=== PATIENT | male | born 1960 | race Caucasian/White ===

== ENCOUNTER 2021-01-26 08:12 | Emergency (ER) | payer BC ==
[2021-01-26 08:18] VITALS: BP 136/74; PULSE 80; RESP 20; TEMP 97.1
[2021-01-26] MEDS ORDERED: MORPHINE SULFATE 4 MG/ML SYRINGE IV STA (08:30)
[2021-01-26] MEDS ORDERED: ONDANSETRON 4 MG/2 ML VIAL IVP STA (08:30)
[2021-01-26] MEDS ORDERED: SODIUM CHLORIDE 0.9% 1,000 ML IV STA (08:30)
--- NOTE | 2021-01-26 09:46 | XR ---
EXAMINATION TYPE: XR KUB DATE OF EXAM: 01/26/2021 COMPARISON: NONE HISTORY: Pain TECHNIQUE: One view abdominal series FINDINGS: Bilateral infiltrate and pleural effusion. There is dilated small bowel loops with air-fluid levels. Hypertrophic and degenerative changes spine. IMPRESSION: 1. Dilated bowel loops with air-fluid levels correlate for bowel obstruction. 2. Bilateral lower lobe infiltrate and small effusion.
[2021-01-26 09:51] LABS: Basophils % (A) 0 %; Eosinophils # (A) 0.2 k/uL (0-0.7); Eosinophils % (A) 2 %; HGB 17.1 gm/dL (13.0-17.5); Hypochromasia Slight; Lymphocytes # (A) 1.6 k/uL (1.0-4.8); Lymphocytes % (A) 16 %; MCH 27.1 pg (25.0-35.0); MCHC 31.7 g/dL (31.0-37.0); MCV 85.6 fL (80.0-100.0); Mean Platelet Volume 8.7; Monocytes # (A) 0.5 k/uL (0-1.0); Monocytes % (A) 5 %; Neutrophils # (A) 7.3 k/uL (1.3-7.7); Neutrophils % (A) 75 %; Platelet Count 311 k/uL (150-450); RDW 14.9 % (11.5-15.5); WBC 9.6 k/uL (3.8-10.6)
[2021-01-26 10:05] LABS: ALT 77 U/L (4-49); AST 80 U/L (17-59); African American GFR (CKD) >90 (>60 ml/min/1.73 sqM); Albumin 4.4 g/dL (3.5-5.0); Alkaline Phosphatase 69 U/L (38-126); Amylase 63 U/L (30-110); Anion Gap 9 mmol/L; Blood Urea Nitrogen 15 mg/dL (9-20); Calcium 9.9 mg/dL (8.4-10.2); Carbon Dioxide 29 mmol/L (22-30); Chloride 96 mmol/L (98-107); Glucose 159 mg/dL (74-99); Lipase 49 U/L (23-300); Non-African American GFR(CKD) 85 (>60 ml/min/1.73 sqM); Potassium 5.4 mmol/L (3.5-5.1); Sodium 134 mmol/L (137-145); Total Bilirubin 0.6 mg/dL (0.2-1.3)
--- NOTE | 2021-01-26 10:38 | ED ---
Abdominal Pain HPI - General Chief Complaint: Abdominal Pain Stated Complaint: diverticulitis Time Seen by Provider: 01/26/21 08:23 Source: patient, RN notes reviewed Mode of arrival: wheelchair Limitations: no limitations - History of Present Illness Initial Comments: Patient is a 60-year-old male that presents to the emergency room complaining of left lower quadrant abdominal pain. He does have a history of diverticulitis. He was seen by his primary care and was started on antibiotics. Patient is unable to recall which Antibiotic is on. Patient notes that he has several pills and a Tylenol pill bottle with him. Patient was in no apparent distress or pain. He notes that at rest is about a 2 out of 10 with no relief. Patient was told to come to the emergency room if symptoms had persisted. Patient was otherwise well-appearing. He denied chest pain shortness of breath headache nausea vomiting diarrhea constipation fever fatigue chills. - Related Data Home Medications Medication Instructions Recorded Confirmed Levothyroxine Sodium [Synthroid] 125 mcg PO DAILY 01/26/21 01/26/21 Lisinopril-Hctz 20-12.5 mg 1 tab PO DAILY 01/26/21 01/26/21 [Zestoretic 20-12.5] Simvastatin [Zocor] 20 mg PO DAILY 01/26/21 01/26/21 Sulfamethox-Tmp 800-160Mg [Bactrim 1 tab PO Q12HR 01/26/21 01/26/21 DS 800-160 mg] Testosterone Cypionate 200 mg IM QMONTHLY 01/26/21 01/26/21 [Depo-Testosterone] Venlafaxine HCl ER [Effexor Xr] 150 mg PO DAILY 01/26/21 01/26/21 metFORMIN HCL 500 mg PO BID 01/26/21 01/26/21 metroNIDAZOLE [Flagyl] 500 mg PO QID 01/26/21 01/26/21 Previous Rx's Medication Instructions Recorded Amoxicillin/Potassium Clav 1 tab PO Q12HR #20 tab 01/26/21 [Augmentin 875-125 Tablet] Allergies Allergy/AdvReac Type Severity Reaction Status Date / Time No Known Allergies Allergy Verified 01/26/21 11:23 Review of Systems ROS Statement: Those systems with pertinent positive or pertinent negative responses have been documented in the HPI. ROS Other: All systems not noted in ROS Statement are negative. Past Medical History Additional Past Medical History / Comment(s): diverticulitis History of Any Multi-Drug Resistant Organisms: None Reported Past Surgical History: Hernia Repair Past Psychological History: No Psychological Hx Reported Smoking Status: Never smoker Past Alcohol Use History: Rare Past Drug Use History: None Reported General Exam Limitations: no limitations General appearance: alert, in no apparent distress, obese (Morbidly) Head exam: Present: atraumatic, normocephalic, normal inspection Eye exam: Present: normal appearance, PERRL, EOMI. Absent: scleral icterus, conjunctival injection, periorbital swelling ENT exam: Present: normal exam, mucous membranes moist Neck exam: Present: normal inspection Respiratory exam: Present: normal lung sounds bilaterally. Absent: respiratory distress, wheezes, rales, rhonchi, stridor Cardiovascular Exam: Present: regular rate, normal rhythm, normal heart sounds. Absent: systolic murmur, diastolic murmur, rubs, gallop, clicks GI/Abdominal exam: Present: soft, normal bowel sounds. Absent: distended, tenderness, guarding, rebound, rigid Extremities exam: Present: normal inspection, full ROM, normal capillary refill. Absent: tenderness, pedal edema, joint swelling, calf tenderness Neurological exam: Present: alert, oriented X3 Psychiatric exam: Present: normal affect, normal mood Skin exam: Present: warm, dry, intact, normal color. Absent: rash Course Vital Signs 01/26/21 08:13 Temperature 97.1 F L Pulse Rate 80 Respiratory 20 Rate Blood Pressure 136/74 O2 Sat by Pulse 93 L Oximetry Medical Decision Making - Medical Decision Making 6-year-old male complaining of left lower quadrant pain, history of div erticulitis. Labs, KUB, 1 L normal saline, 4 mg of morphine, 4 mg of Zofran ordered. labs unremarkable. X-ray shows possible bowel obstruction, computed tomography scan of the abdomen and pelvis ordered. CT scan shows colitis with several diverticula possible focal diverticulitis. Patient is on antibiotics for diverticula his. Patient recommended get a colonoscopy once symptoms resolve. Patient antibody changed due to his current 1 not being treatment of choice. Case discussed with Dr. Flores, patient can discharge home. Patient is agreeable with discharge home with follow-up primary care. - Lab Data Result diagrams: 01/26/21 08:53 01/26/21 08:53 Lab Results 01/26/21 01/26/21 01/26/21 Range/Units 08:53 08:53 08:53 WBC 9.6 (3.8-10.6) k/uL RBC 6.30 H (4.30-5.90) m/uL Hgb 17.1 (13.0-17.5) gm/dL Hct 54.0 H (39.0-53.0) % MCV 85.6 (80.0-100.0) fL MCH 27.1 (25.0-35.0) pg MCHC 31.7 (31.0-37.0) g/dL RDW 14.9 (11.5-15.5) % Plt Count 311 (150-450) k/uL MPV 8.7 Neutrophils % 75 % Lymphocytes % 16 % Monocytes % 5 % Eosinophils % 2 % Basophils % 0 % Neutrophils # 7.3 (1.3-7.7) k/uL Lymphocytes # 1.6 (1.0-4.8) k/uL Monocytes # 0.5 (0-1.0) k/uL Eosinophils # 0.2 (0-0.7) k/uL Basophils # 0.0 (0-0.2) k/uL Hypochromasia Slight Sodium 134 L (137-145) mmol/L Potassium 5.4 H (3.5-5.1) mmol/L Chloride 96 L (98-107) mmol/L Carbon Dioxide 29 (22-30) mmol/L Anion Gap 9 mmol/L BUN 15 (9-20) mg/dL Creatinine 0.97 (0.66-1.25) mg/dL Est GFR (CKD-EPI)AfAm >90 (>60 ml/min/1.73 sqM) Est GFR (CKD-EPI)NonAf 85 (>60 ml/min/1.73 sqM) Glucose 159 H (74-99) mg/dL Plasma Lactic Acid Magan 1.5 (0.7-2.0) mmol/L Calcium 9.9 (8.4-10.2) mg/dL Total Bilirubin 0.6 (0.2-1.3) mg/dL AST 80 H (17-59) U/L ALT 77 H (4-49) U/L Alkaline Phosphatase 69 (38-126) U/L Total Protein 8.0 (6.3-8.2) g/dL Albumin 4.4 (3.5-5.0) g/dL Amylase 63 (30-110) U/L Lipase 49 (23-300) U/L - Radiology Data Radiology results: report reviewed, image reviewed Computed tomography scan of the abdomen and pelvis: Findings consistent with mild diffuse colitis and/or underlying diarrheal or focal moderate to severe colitis in the left upper to mid abdomen just passed the splenic flexure in the proximal left colon. There are some scattered diverticula throughout the left and sigmoid colon findings may be product of a focal diverticulitis. I do advise colonoscopy follow-up after treatment if it is not been performed last 3 years to rule out neoplasm as there is a central moderate to severe wall thickening noted this level. Disposition Clinical Impression: Abdominal pain, Diverticulitis, Colitis Disposition: HOME SELF-CARE Condition: Stable Instructions (If sedation given, give patient instructions): Abdominal Pain (E D) Additional Instructions: Please return to the Emergency Department if symptoms worsen or any other concerns. Follow-up with primary care 1-2 days. Take antibiotics as prescribed until complete. Prescriptions: Amoxicillin/Potassium Clav [Augmentin 875-125 Tablet] 1 tab PO Q12HR #20 tab Is patient prescribed a controlled substance at d/c from ED?: No Referrals: Leopoldo Price MD [Primary Care Provider] - 1-2 days Time of Disposition: 11:52
--- NOTE | 2021-01-26 11:27 | CT ---
EXAMINATION TYPE: CT abdomen pelvis w con DATE OF EXAM: 01/26/2021 COMPARISON: Abdominal x-ray earlier today HISTORY: LLQ pain x 1 week, diverticulitis CT DLP: 5277 mGycm, Automated Exposure Control for Dose Reduction was Utilized. CONTRAST: CT scan of the abdomen and pelvis is performed without oral but with IV Contrast, patient injected wi th 100 ml mL of Isovue 300. FINDINGS: LUNG BASES: Mild cardiomegaly redemonstrated. Coronary artery calcification is noted. LIVER/GB: Liver is diffusely low dense consistent with diffuse fatty infiltration. PANCREAS: No significant abnormality is seen. SPLEEN: No significant abnormality is seen. ADRENALS: No significant abnormality is seen. KIDNEYS: Symmetric cortical medullary uptake and excretion without hydronephrosis seen bilaterally. T here is occasional tiny simple appearing thin-walled cysts scattered throughout both kidneys. BOWEL: Suboptimal evaluation of bowel without enteric contrast. Small sliding-type hiatal hernia. Pro minent small bowel loops with air-fluid levels with nondilated fluid-filled small bowel loops in the lower abdomen and pelvis. Fluid is noted at level of the hepatic flexure in the colon. This extends t o involve portions of the transverse colon. There is mild/moderate wall thickening in the transverse colon. There are diverticula throughout the left and sigmoid colon. Some abnormal fluid extends into this portion. In the proximal left: There is moderate to severe wall thickening with moderate to oma re surrounding fat stranding just below the splenic flexure axial image 40 and coronal image 45 for r eference. Findings consistent with a focal colitis possibly related to underlying diverticular diseas e. No free air identified. No well-formed fluid collection or drainable abscess seen. PROSTATE/SEMINAL VESICLES: Prostate gland within normal limits in size with adjacent pelvic phlebolit hs. Prominent LYMPH NODES: No greater than 1cm abdominal or pelvic lymph nodes are appreciated. OSSEOUS STRUCTURES: Multilevel spondylolisthesis and moderate to severe disc space narrowing along wi th moderate spurring L2-L3 through the L5-S1 levels in the mid to lower lumbar spine. Facet arthropat hy lower lumbar levels. Moderate axial joint space loss in both hips. OTHER: No significant additional abnormality is seen. IMPRESSION: Findings consistent with mild diffuse colitis and/or underlying diarrhea with more focal moderate to severe colitis in the left upper to mid abdomen just past the splenic flexure in the prox imal left colon. There are some scattered diverticula throughout the left and sigmoid colon and findi ngs may be product of a focal diverticulitis. I do advise colonoscopy follow-up after treatment if it has not been performed in the last 3 years to rule out neoplasm as there is eccentric moderate to se kenneth wall thickening noted at this level.
== END 2021-01-26 12:17 | disposition home or self-care (01) ==
LOC: EC 08:12
DX: K57.30 Diverticulosis of large intestine without perforation or abscess without bleeding (principal); K52.9 Noninfective gastroenteritis and colitis, unspecified; Z79.84 Long term (current) use of oral hypoglycemic drugs
CPT/HCPCS: 99284; 96374; 96375; 80053; 82150; 83605; 83690; 85025; 74018; 74177; J2270; J2405; Q9967

== ENCOUNTER 2021-03-02 23:18 | Inpatient (IN) | payer BC ==
[2021-03-03] MEDS ORDERED: MORPHINE SULFATE 4 MG/ML SYRINGE IVP STA (00:04)
[2021-03-03] MEDS: ONDANSETRON 4 MG/2 ML VIAL IVP STA (00:25)
[2021-03-03 00:29] LABS: Basophils % (A) 0 %; Eosinophils # (A) 0.3 k/uL (0-0.7); Eosinophils % (A) 2 %; HCT 51.5 % (39.0-53.0); Hypochromasia Moderate; Lymphocytes # (A) 1.5 k/uL (1.0-4.8); Lymphocytes % (A) 12 %; MCH 26.9 pg (25.0-35.0); MCHC 31.1 g/dL (31.0-37.0); MCV 86.5 fL (80.0-100.0); Mean Platelet Volume 8.5; Monocytes # (A) 0.6 k/uL (0-1.0); Monocytes % (A) 5 %; Neutrophils # (A) 9.9 k/uL (1.3-7.7); Neutrophils % (A) 80 %; Platelet Count 338 k/uL (150-450); RBC 5.95 m/uL (4.30-5.90); RDW 14.7 % (11.5-15.5); WBC 12.5 k/uL (3.8-10.6)
--- NOTE | 2021-03-03 00:30 | ED ---
Abdominal Pain HPI - General Chief Complaint: Abdominal Pain Stated Complaint: Abdominal pain, nausea Time Seen by Provider: 03/02/21 23:30 Source: patient Mode of arrival: ambulatory Limitations: no limitations - History of Present Illness Initial Comments: Patricio is a 60yo morbidly obese male with PMH of this approximately 6 weeks ago patient presents the ER today with recurrent severe abdominal pain nausea and constipation. Patient reports the pain began 4 days ago he's not had a bowel movement and those 4 days which is quite atypical for him. He's had some nausea but no vomiting. Decreased oral intake due to feeling full. He reports that h is abdomen is distended and firm. - Related Data Home Medications Medication Instructions Recorded Confirmed Levothyroxine Sodium [Synthroid] 125 mcg PO DAILY 01/26/21 01/26/21 Lisinopril-Hctz 20-12.5 mg 1 tab PO DAILY 01/26/21 01/26/21 [Zestoretic 20-12.5] Simvastatin [Zocor] 20 mg PO DAILY 01/26/21 01/26/21 Sulfamethox-Tmp 800-160Mg [Bactrim 1 tab PO Q12HR 01/26/21 01/26/21 DS 800-160 mg] Testosterone Cypionate 200 mg IM QMONTHLY 01/26/21 01/26/21 [Depo-Testosterone] Venlafaxine HCl ER [Effexor Xr] 150 mg PO DAILY 01/26/21 01/26/21 metFORMIN HCL 500 mg PO BID 01/26/21 01/26/21 metroNIDAZOLE [Flagyl] 500 mg PO QID 01/26/21 01/26/21 Previous Rx's Medication Instructions Recorded Amoxicillin/Potassium Clav 1 tab PO Q12HR #20 tab 01/26/21 [Augmentin 875-125 Tablet] Allergies Allergy/AdvReac Type Severity Reaction Status Date / Time No Known Allergies Allergy Verified 03/02/21 23:27 Review of Systems ROS Statement: Those systems with pertinent positive or pertinent negative responses have been documented in the HPI. ROS Other: All systems not noted in ROS Statement are negative. Past Medical History Additional Past Medical History / Comment(s): diverticulitis. COVID 03/10 History of Any Multi-Drug Resistant Organisms: None Reported Past Surgical History: Hernia Repair Past Psychological History: No Psychological Hx Reported Smoking Status: Never smoker Past Alcohol Use History: None Reported Past Drug Use History: None Reported General Exam - General Exam Comments Initial Comments: Physical Exam GENERAL: Morbidly obese gentleman, appears uncomfortable Patient is well-developed and well-nourished. Patient is nontoxic and well- hydrated and is in no distress. HENT: Normocephalic, Atraumatic. EYES: PERRL, EOMI PULMONARY: Decreased pulmonary excursion due to abdominal distention CARDIOVASCULAR: There is a regular rate and rhythm without any murmurs gallops or rubs. ABDOMEN: Distended, tender SKIN: Skin is clear with no lesions or rashes and otherwise unremarkable. : Deferred NEUROLOGIC: Patient is alert and oriented x3. Moving all extremities spontaneously MUSCULOSKELETAL: Normal extremities with adequate strength and full range of motion. No lower extremity swelling or edema. No calf tenderness. PSYCHIATRIC: Normal psychiatric evaluation. Limitations: no limitations Course Vital Signs 03/02/21 23:23 Temperature 98.1 F Pulse Rate 97 Respiratory 18 Rate Blood Pressure 120/74 O2 Sat by Pulse 95 Oximetry Medical Decision Making - Medical Decision Making In and evaluated history was obtained from patient, history and physical exam concerning for possible obstruction, x-ray was obtained which does reveal possible obstruction, NG tube was ordered. Patient was taken to computed tomography scan prior to NG tube in place. Computed tomography scan confirms a bowel obstruction with concern for annular tumor as the cause. These results were discussed the patient is agreeable to plan for admission Was discussed with Dr. Felipe who accepts admission. - Lab Data Result diagrams: 03/03/21 00:19 03/03/21 00:19 Lab Results 03/03/21 03/03/21 Range/Units 00:19 00:19 WBC 12.5 H (3.8-10.6) k/uL RBC 5.95 H (4.30-5.90) m/uL Hgb 16.0 (13.0-17.5) gm/dL Hct 51.5 (39.0-53.0) % MCV 86.5 (80.0-100.0) fL MCH 26.9 (25.0-35.0) pg MCHC 31.1 (31.0-37.0) g/dL RDW 14.7 (11.5-15.5) % Plt Count 338 (150-450) k/uL MPV 8.5 Neutrophils % 80 % Lymphocytes % 12 % Monocytes % 5 % Eosinophils % 2 % Basophils % 0 % Neutrophils # 9.9 H (1.3-7.7) k/uL Lymphocytes # 1.5 (1.0-4.8) k/uL Monocytes # 0.6 (0-1.0) k/uL Eosinophils # 0.3 (0-0.7) k/uL Basophils # 0.0 (0-0.2) k/uL Hypochromasia Moderate Sodium 135 L (137-145) mmol/L Potassium 4.7 (3.5-5.1) mmol/L Chloride 94 L (98-107) mmol/L Carbon Dioxide 29 (22-30) mmol/L Anion Gap 12 mmol/L BUN 16 (9-20) mg/dL Creatinine 0.72 (0.66-1.25) mg/dL Est GFR (CKD-EPI)AfAm >90 (>60 ml/min/1.73 sqM) Est GFR (CKD-EPI)NonAf >90 (>60 ml/min/1.73 sqM) Glucose 168 H (74-99) mg/dL Calcium 9.6 (8.4-10.2) mg/dL Total Bilirubin 0.6 (0.2-1.3) mg/dL AST 28 (17-59) U/L ALT 25 (4-49) U/L Alkaline Phosphatase 60 (38-126) U/L Total Protein 7.7 (6.3-8.2) g/dL Albumin 4.2 (3.5-5.0) g/dL Amylase 49 (30-110) U/L Lipase 26 (23-300) U/L Disposition Clinical Impression: Bowel obstruction Disposition: ADMITTED IP TO THIS [facility] Condition: Serious Is patient prescribed a controlled substance at d/c from ED?: No Referrals: Leopoldo Price MD [Primary Care Provider] - 1-2 days
[2021-03-03 00:37] LABS: ALT 25 U/L (4-49); AST 28 U/L (17-59); African American GFR (CKD) >90 (>60 ml/min/1.73 sqM); Albumin 4.2 g/dL (3.5-5.0); Alkaline Phosphatase 60 U/L (38-126); Amylase 49 U/L (30-110); Anion Gap 12 mmol/L; Blood Urea Nitrogen 16 mg/dL (9-20); Calcium 9.6 mg/dL (8.4-10.2); Carbon Dioxide 29 mmol/L (22-30); Chloride 94 mmol/L (98-107); Glucose 168 mg/dL (74-99); Lipase 26 U/L (23-300); Non-African American GFR(CKD) >90 (>60 ml/min/1.73 sqM); Potassium 4.7 mmol/L (3.5-5.1); Sodium 135 mmol/L (137-145); Total Bilirubin 0.6 mg/dL (0.2-1.3); Total Protein 7.7 g/dL (6.3-8.2)
--- NOTE | 2021-03-03 00:47 | XR ---
EXAMINATION TYPE: XR KUB portable DATE OF EXAM: 03/03/2021 COMPARISON: NONE HISTORY: Abdominal pain TECHNIQUE: 4 views FINDINGS: There are some dilated gas and fluid-filled large bowel loops in the abdomen. There is no e vidence of free air. There is right pleural effusion. There is probably left pleural effusion. IMPRESSION: Dilated large bowel fluid levels that could relate to bowel obstruction. There are also s ome small bowel fluid levels that could be secondarily dilated due to distal obstruction. No free air . Pleural effusions.
[2021-03-03] MEDS ORDERED: LIDOCAINE URO-JET JELLY 2% 5 ML KIT URETHRAL ONE (00:48)
--- NOTE | 2021-03-03 01:07 | CT ---
EXAMINATION TYPE: CT abdomen pelvis w con DATE OF EXAM: 03/03/2021 COMPARISON: 01/26/2021 HISTORY: abd. pain CT DLP: 4089.90 mGycm Automated exposure control for dose reduction was used. CONTRAST: Performed with IV Contrast, patient injected with 100 mL of Isovue 300. Images obtained from the diaphragm to the floor the pelvis with IV contrast. There is mild subsegmental atelectasis at the lung bases. Heart is top normal in size. There is no pe ricardial effusion. There is no pleural effusion. Liver is enlarged and measures 22 cm. Spleen is intact. Stomach is intact. The bile ducts are not dil ated. Gallbladder is mildly dilated and measures 5 cm. No gallbladder wall thickening seen. There is no evidence of pancreatic mass. There is no adrenal mass. Kidneys show satisfactory contrast opacification. There is no hydronephrosi s. Ureters are not dilated. There is no retroperitoneal adenopathy. There are multiple dilated fluid-filled and air-filled loops of large bowel in the mid abdomen. There is extensive inflammatory changes involving the mid descending colon with wall thickening and surrou nding extensive fat stranding. There is no evidence of free air. Segment of large bowel involvement i s 7 cm in length. The wall thickness is measuring up to 2.5 cm. This is suspicious for tumor. There a re multiple sigmoid diverticula. Lumbar vertebra have normal alignment. There is multilevel vacuum disc with spur formation. There is no compression fracture. Posterior elements are intact. The bony pelvis is intact. The hip joints are intact. Sacroiliac joints appear normal. There is no ascites or free air. The small bowel does not appear sig nificantly dilated. IMPRESSION: There is significant wall thickening of the distal descending colon with luminal narrowing and some s houldering at the superior aspect. This is suspicious for annular tumor. There is evidence for mechan ical large bowel obstruction with multiple fluid levels in dilated loops. Large bowel dilation increa sed compared to old exam. Sigmoid diverticulosis without sign of diverticulitis. Hepatomegaly. Atherosclerotic vascular disease. Dilated gallbladder suggestive of some degree of gall bladder dysfunction. No dilated ducts.
[2021-03-03] MEDS ORDERED: LORazepam 2 MG/ML INJ IV STA (01:28)
[2021-03-03] MEDS ORDERED: ONDANSETRON 4 MG/2 ML VIAL IVP PRN (01:39)
[2021-03-03] MEDS ORDERED: NALOXONE 0.4 MG/ML 1 ML VIAL IV PRN (01:39)
--- NOTE | 2021-03-03 03:02 | XR ---
EXAMINATION TYPE: XR chest 1V DATE OF EXAM: 03/03/2021 COMPARISON: NONE HISTORY: Tube placement TECHNIQUE: 2 views FINDINGS: There is slight blunting right costophrenic angle. There is minimal pulmonary congestion. H eart size is fairly normal. There is subsegmental atelectasis left lung base. IMPRESSION: Mild pulmonary interstitial edema and small pleural effusions. There is nasogastric tube and the tip is not well seen. Tube is at least in the lower esophagus.
[2021-03-03] MEDS: HYDROmorphone 1 MG/ML 1 ML SYRINGE IVP PRN ×2 (07:29→13:36)
[2021-03-03] MEDS: LORazepam 2 MG/ML INJ IV PRN ×2 (10:27→20:24)
--- NOTE | 2021-03-03 11:04 | P.GSHP ---
History of Present Illness H&P Date: 03/03/21 CHIEF COMPLAINT: Abdominal pain HISTORY OF PRESENT ILLNESS: This is a 60-year-old male with a history of morbid obesity, diverticulitis and umbilical hernia repair. Patient presents to the hospital with complaints of abdominal pain across the middle of his abdomen and into the left side. Patient reports that he has been dealing with abdominal pain for about 6 weeks. Over the last 3 days he has had increasing pain with nausea and not having any bowel movements for about 2 days. He reports feeling more bloated and has had decreased and flatulence. He reports his last colonoscopy was 2 years ago that did reveal diverticulosis. Patient denies any fever, chills or sweats. Computed tomography scan evidence had shown evidence of a large bowel obstruction. PAST MEDICAL HISTORY: Enlarged aorta patient reports having a stress test 6 months ago. Diverticulitis, COVID-19, obstructive sleep apnea and uses CPAP, hypertension, hypothyroidism, anxiety PAST SURGICAL HISTORY: Umbilical hernia repair MEDICATIONS: See list. ALLERGIES: See list. SOCIAL HISTORY: No illicit drug use. REVIEW OF SYSTEMS: CONSTITUTIONAL: Denies fever or chills. HEENT: Denies blurred vision, vision changes, or eye pain. Denies hemoptysis CARDIOVASCULAR: Denies chest pain or pressure. RESPIRATORY: No shortness of breath. GASTROINTESTINAL: See HPI for pertinent findings HEMATOLOGIC: Denies bleeding disorders. GENITOURINARY: Denies any blood in urine or increased urinary frequency. SKIN: Denies pruitis. Denies rash. PHYSICAL EXAM: VITAL SIGNS: Reviewed GENERAL: Well-developed in no acute distress. HEENT: No sclera icterus. Extraocular movements grossly intact. Moist buccal mucosa. Head is atraumatic, normocephalic. No nasal drainage. ABDOMEN: Soft. Obese. Distended. Tenderness to palpation of the mid abdomen and left side of abdomen NEUROLOGIC: Alert and oriented. Cranial nerves II through XII grossly intact. LABORATORY DATA: WBC is 12.5 Hgb 16 338 Sodium 135 potassium 4.7 BUN 16 creatinine 0.72 LFTs normal Lipase 26 COVID-19 not detected IMAGING: Computed tomography scan abdomen and pelvis demonstrates significant wall thickening of the distal descending colon with a luminal narrowing and some shouldering at the superior aspect. There is suspicious for annular tumor. There is evidence for mechanical large bowel obstruction with multiple fluid levels and dilated loops. Large bowel dilation increased compared to old exam. Sigmoid diverticulosis without sign of diverticulitis. Hepatomegaly. As sclerotic vascular disease. Dilated gallbladder suggestive of some degree of gallbladder dysfunction. No dilated ducts. ASSESSMENT: 1. Mechanical large bowel obstruction with CAT scan evidence of significant wall thickening of the distal descending colon with luminal narrowing and some shouldering at the superior aspect. Suspicious for annular tumor 2. Evidence of a dilated gallbladder on CAT scan PLAN: -Patient scheduled for sigmoid colectomy with end colostomy for today with Dr. Caldwell -Keep patient nothing by mouth -Continue IV fluids -Continue pain medication as needed -Continue antiemetics as needed -Consult medicine service for medical management Physician [employer] note has been reviewed by physician. Signing provider agrees with the documented findings, assessment, and plan of care. Past Medical History Past Medical History: Hyperlipidemia, Hypertension, Pneumonia, Thyroid Disorder, Vascular Disorder Additional Past Medical History / Comment(s): Diverticulitis, aortic aneurysm 4.5 cm, covid positive 02/17/21 asymptomatic per pt, NIDDM type II, chronic low back pain/R shoulder pain and bilateral knee pain, hypothyroid History of Any Multi-Drug Resistant Organisms: None Reported Past Surgical History: Hernia Repair, Tonsillectomy Additional Past Surgical History / Comment(s): Colonoscopy 2019 at [facility], umbilical hernia, R hand cut injury with surgical repair. Additional Past Anesthesia/Blood Transfusion Reaction / Comment(s): PT HAS HX OF BEING A DIFFICULT INTUBATION. Smoking Status: Never smoker - Past Family History Mother Family Medical History: Cancer Additional Family Medical History / Comment(s): Mother of cervical cancer with mets at the age of 66 yrs. Father Family Medical History: Myocardial Infarction (OK) Additional Family Medical History / Comment(s): Father of a OK at the age of 69 yrs. Medications and Allergies Home Medications Medication Instructions Recorded Confirmed Type Levothyroxine Sodium [Synthroid] 125 mcg PO DAILY 01/26/21 03/03/21 History Lisinopril-Hctz 20-12.5 mg 1 tab PO DAILY 01/26/21 03/03/21 History [Zestoretic 20-12.5] Simvastatin [Zocor] 20 mg PO DAILY 01/26/21 03/03/21 History Venlafaxine HCl ER [Effexor Xr] 150 mg PO DAILY 01/26/21 03/03/21 History metFORMIN HCL 500 mg PO BID 01/26/21 03/03/21 History Ascorbic Acid [Vitamin C] 1,000 mg PO DAILY 03/03/21 03/03/21 History Cholecalciferol [Vitamin D3 (25 50 mcg PO DAILY 03/03/21 03/03/21 History Mcg = 1000 Iu)] Zinc 50 mg PO DAILY 03/03/21 03/03/21 History Allergies Allergy/AdvReac Type Severity Reaction Status Date / Time No Known Allergies Allergy Verified 03/03/21 08:14 Surgical - Exam Vital Signs Temp Pulse Resp BP Pulse Ox 98.1 F 97 18 120/74 95 03/02/21 23:23 03/02/21 23:23 03/02/21 23:23 03/02/21 23:23 03/02/21 23:23 Results - Labs 03/03/21 00:19 03/03/21 00:19 Abnormal Lab Results - Last 24 Hours (Table) 03/03/21 03/03/21 Range/Units 00:19 00:19 WBC 12.5 H (3.8-10.6) k/uL RBC 5.95 H (4.30-5.90) m/uL Neutrophils # 9.9 H (1.3-7.7) k/uL Sodium 135 L (137-145) mmol/L Chloride 94 L (98-107) mmol/L Glucose 168 H (74-99) mg/dL Diabetes panel 03/03/21 Range/Units 00:19 Sodium 135 L (137-145) mmol/L Potassium 4.7 (3.5-5.1) mmol/L Chloride 94 L (98-107) mmol/L Carbon Dioxide 29 (22-30) mmol/L BUN 16 (9-20) mg/dL Creatinine 0.72 (0.66-1.25) mg/dL Glucose 168 H (74-99) mg/dL Calcium 9.6 (8.4-10.2) mg/dL AST 28 (17-59) U/L ALT 25 (4-49) U/L Alkaline Phosphatase 60 (38-126) U/L Total Protein 7.7 (6.3-8.2) g/dL Albumin 4.2 (3.5-5.0) g/dL Calcium panel 03/03/21 Range/Units 00:19 Calcium 9.6 (8.4-10.2) mg/dL Albumin 4.2 (3.5-5.0) g/dL Pituitary panel 03/03/21 Range/Units 00:19 Sodium 135 L (137-145) mmol/L Potassium 4.7 (3.5-5.1) mmol/L Chloride 94 L (98-107) mmol/L Carbon Dioxide 29 (22-30) mmol/L BUN 16 (9-20) mg/dL Creatinine 0.72 (0.66-1.25) mg/dL Glucose 168 H (74-99) mg/dL Calcium 9.6 (8.4-10.2) mg/dL Adrenal panel 03/03/21 Range/Units 00:19 Sodium 135 L (137-145) mmol/L Potassium 4.7 (3.5-5.1) mmol/L Chloride 94 L (98-107) mmol/L Carbon Dioxide 29 (22-30) mmol/L BUN 16 (9-20) mg/dL Creatinine 0.72 (0.66-1.25) mg/dL Glucose 168 H (74-99) mg/dL Calcium 9.6 (8.4-10.2) mg/dL Total Bilirubin 0.6 (0.2-1.3) mg/dL AST 28 (17-59) U/L ALT 25 (4-49) U/L Alkaline Phosphatase 60 (38-126) U/L Total Protein 7.7 (6.3-8.2) g/dL Albumin 4.2 (3.5-5.0) g/dL
[2021-03-03] MEDS: SODIUM CHLORIDE 0.9% 1,000 ML IV SCH ×2 (11:35→17:47)
[2021-03-03] MEDS ORDERED: LIDOCAINE 1% (10MG/ML) FOR IV START INTRADERMA PRN (12:22)
[2021-03-03] MEDS: LACTATED RINGERS 1,000 ML IV SCH (12:35)
[2021-03-03] MEDS ORDERED: hydrALAZINE HCL 20 MG/ML 1 ML VIAL IVP PRN (14:50)
[2021-03-03] MEDS: HEPARIN SODIUM,PORCINE/PF 5,000 UNIT/0.5 ML SYRINGE SQ SCH ×2 (15:06→20:25)
--- NOTE | 2021-03-03 16:07 | CONS ---
CONSULTATION REASON FOR CONSULTATION: Advice regarding hypertension and other medical issues, requested by Surgery. HISTORY OF PRESENT ILLNESS: This 60-year-old gentleman with a past medical history of hypertension, hyperlipidemia, history of pneumonia, hypothyroidism, history of diabetes mellitus, being followed by Dr. Leopoldo Price in the outpatient setting, also had a thoracic aortic aneurysm 4.5 cm, being followed by Cardiothoracic Surgery outside, which is stable according to him. The patient is complaining of on and off abdominal pain which is diffuse in character, and the patient presented with features of bowel obstruction with abdominal distention. CT scan of the abdomen and pelvis showed significant wall thickening of the distal descending colon with luminal narrowing of the superior aspect. Annular tumor was suspected. Large bowel dilatation was noted. Because of the mechanical obstruction, Surgery was planning sigmoid colectomy and colostomy also. There is no history of any fever, rigors or chills. No history of headache, loss of consciousness, seizures. Patient is extremely anxious at this time. PAST MEDICAL HISTORY: History of hypertension, hyperlipidemia, history of pneumonia, history of vascular disease, history of diverticulitis. MEDICATIONS: Medications prior to admission include metformin, zinc, Effexor XR, Zocor, Zestoretic, Synthroid, cholecalciferol, vitamin C. doses are reviewed. ALLERGIES: NONE. FAMILY HISTORY: History of cancer with metastases. SOCIAL HISTORY: Occasional alcohol intake. REVIEW OF SYSTEMS: ENT: No diminished hearing. No diminished vision. CARDIOVASCULAR SYSTEM: No angina, palpitations. RESPIRATORY SYSTEM: No cough, hemoptysis. GI: No nausea, vomiting, diarrhea. : No dysuria. NERVOUS SYSTEM: No numbness, weakness. ALLERGY/IMMUNOLOGY: No asthma or hay fever. MUSCULOSKELETAL: As mentioned earlier. HEMATOLOGY/ONCOLOGY: No history of anemia. ENDOCRINE: No history of diabetes or hypothyroidism. CONSTITUTIONAL: As mentioned earlier. DERMATOLOGY: Negative. RHEUMATOLOGY: Negative. PSYCHIATRY: As mentioned earlier. PHYSICAL EXAMINATION: Patient is alert, oriented x3. Pulse 82, blood pressure 124/88, respiration 18, temperature normal, pulse ox 94% on 2 L. HEENT: Conjunctivae normal. NECK: No jugular venous distention. CARDIOVASCULAR: S1, S2 muffled. RESPIRATION: Breath sounds diminished at the bases. A few scattered rhonchi. ABDOMEN: Soft, obese. Tense in the upper part. Tender. No guarding or rigidity. Bowel sounds diminished. No ascites. No mass palpable. LEGS: No edema. No swelling. NERVOUS SYSTEM: Higher functions as mentioned earlier. Moves all 4 limbs. No focal motor or sensory deficit. LYMPHATICS: No lymph node palpable in neck, axillae or groin. SKIN: No ulcer, rash, bleeding. JOINTS: No active deforming arthropathy. LABS: WBC 12.3, hemoglobin 16, sodium 135, potassium 4.7. The abdominal x-ray and CT scan were personally reviewed by me. Abdominal x-ray showed large dilated large bowel and small bowel dilatations. CT of the abdomen showed multiple findings, as listed above, and sigmoid diverticulosis without any signs of diverticulitis also noted. Hepatomegaly was also noted. Some degree of gallbladder dysfunction also noted. Other labs are noted. IMPRESSION: 1. Acute mechanical large bowel obstruction. Rule out annular tumor. 2. Increased white count. 3. Hyponatremia. 4. Increased random blood sugar. 5. Hypertension. 6. Hyperlipidemia. 7. History of pneumonia. 8. History of hypothyroidism. 9. History of diverticulosis. 10.History of aortic aneurysm 4.5 cm, thoracic. 11.History of COVID last month, asymptomatic. 12.History of chronic low back pain and shoulder pain. 13.Hypothyroidism. 14.History of umbilical hernia. 15.History of anxiety, depression. 16.Obesity with body mass index of 60. 17.FULL CODE. RECOMMENDATIONS AND DISCUSSION: In this 60-year-old gentleman who presented with multiple complex medical issues, we will monitor the patient closely, continue the current medications, continue symptomatic treatment. I recommend a course of antibiotics, rather prophylactic, and obtain the cultures. Resume the home medications. Monitor blood pressure closely. Ativan for anxiety. Pain management. DVT prophylaxis. We will follow the patient closely with you. I would also recommend a baseline EKG. Chest x-ray which was reviewed personally by me showed some lower shadows as well. MMODL / IJN: [id number] /
--- NOTE | 2021-03-03 18:01 | US ---
EXAMINATION TYPE: US venous doppler duplex LE DATE OF EXAM: 03/03/2021 5:44 PM COMPARISON: NONE CLINICAL HISTORY: dvt. Elevated D Dimer. No hx of DVT. Patient takes aspirin. SIDE PERFORMED: Bilateral TECHNIQUE: The lower extremity deep venous system is examined utilizing real time linear array sonog ambar with graded compression, doppler sonography and color-flow sonography. VESSELS IMAGED: Common Femoral Vein Deep Femoral Vein Greater Saphenous Vein * Femoral Vein Popliteal Vein Small Saphenous Vein * Proximal Calf Veins (* superficial vessels) Right Leg: Limited due to edema. No evidence of DVT in veins imaged at this time. Left Leg: Limited due to edema. No evidence of DVT in veins imaged at this time. IMPRESSION: No evidence for deep vein thrombosis in either lower extremity.
[2021-03-03] MEDS: PIPERACILLIN-TAZOBACTAM 3.375 GM in SODIUM CHLORIDE 0.9% 100 ML IVPB SCH (18:19)
[2021-03-03] MEDS: PANTOPRAZOLE 40 MG/10 ML VIAL IVP SCH (20:24)
[2021-03-03] MEDS: MORPHINE SULFATE 4 MG/ML SYRINGE IV PRN (20:25)
--- NOTE | 2021-03-04 00:51 | CT ---
EXAMINATION TYPE: CT chest angio for PE DATE OF EXAM: 03/04/2021 COMPARISON: HISTORY: elevated d-dimer CT DLP: 1120.1 mGycm Automated exposure control for dose reduction was used. CONTRAST: Performed with IV Contrast, patient injected with 65 mL of Isovue 370. The lungs are clear of infiltrate. There is patchy linear density in the lower lung laguna consistent with atelectasis. There is no pleural effusion. Heart size is normal. There is no pericardial effusi on. There is some coronary artery calcification. There is 5 cm aneurysm of the ascending aorta. There is no dissection. There is suboptimal contrast density in the pulmonary arteries. I see no filling defect. Upper abdomi nal soft tissues are intact. The thoracic spine is intact. There is no compression fracture. IMPRESSION: Patchy atelectasis at the lung bases and mid lung laguna. No suspicious pulmonary mass. Aneurysm of the ascending aorta. Limited exam for evaluation of the pulmonary arteries. No evidence of any central pulmonary embolism.
[2021-03-04] MEDS: PIPERACILLIN-TAZOBACTAM 3.375 GM in SODIUM CHLORIDE 0.9% 100 ML IVPB SCH ×3 (01:24→15:30)
[2021-03-04] MEDS: SODIUM CHLORIDE 0.9% 1,000 ML IV SCH ×2 (04:19→11:02)
[2021-03-04] MEDS: MORPHINE SULFATE 4 MG/ML SYRINGE IV PRN ×2 (04:32→19:17)
[2021-03-04 04:33] LABS: Appearance,Urine Clear (Clear); Bacteria,Urine Rare /hpf; Bilirubin,Urine Negative (Negative); Blood,Urine Negative (Negative); Color,Urine Yellow; Glucose,Urine (UA) Negative (Negative); Ketones,Urine Negative (Negative); Leukocyte Esterase,Urine Trace (Negative); Nitrite,Urine Negative (Negative); PH, Urine 5.5 (5.0-8.0); Protein,Urine Trace (Negative); RBC,Urine 1 /hpf (0-5); Squamous Epithelial Cell,Urine 1 /hpf (0-4); Urobilinogen,Urine <2.0 mg/dL (<2.0); WBC,Urine 2 /hpf (0-5)
[2021-03-04 04:42] LABS: Specific Gravity,Urine >1.050 (1.001-1.035)
[2021-03-04] MEDS: LEVOTHYROXINE 125 MCG TAB PO SCH (05:15)
[2021-03-04 06:57] LABS: Basophils % (A) 0 %; Eosinophils # (A) 0.2 k/uL (0-0.7); Eosinophils % (A) 2 %; HCT 50.3 % (39.0-53.0); HGB 15.4 gm/dL (13.0-17.5); Hypochromasia Marked; Lymphocytes # (A) 1.9 k/uL (1.0-4.8); Lymphocytes % (A) 16 %; MCH 27.4 pg (25.0-35.0); MCHC 30.6 g/dL (31.0-37.0); MCV 89.5 fL (80.0-100.0); Mean Platelet Volume 8.4; Monocytes # (A) 0.7 k/uL (0-1.0); Monocytes % (A) 6 %; Neutrophils # (A) 9.1 k/uL (1.3-7.7); Neutrophils % (A) 75 %; Platelet Count 347 k/uL (150-450); RBC 5.62 m/uL (4.30-5.90); RDW 15.1 % (11.5-15.5); WBC 12.1 k/uL (3.8-10.6)
[2021-03-04 07:09] LABS: African American GFR (CKD) >90 (>60 ml/min/1.73 sqM); Anion Gap 13 mmol/L; Blood Urea Nitrogen 17 mg/dL (9-20); Calcium 9.1 mg/dL (8.4-10.2); Carbon Dioxide 27 mmol/L (22-30); Chloride 96 mmol/L (98-107); Glucose 131 mg/dL (74-99); Non-African American GFR(CKD) >90 (>60 ml/min/1.73 sqM); Potassium 4.9 mmol/L (3.5-5.1); Sodium 136 mmol/L (137-145)
[2021-03-04] MEDS: HEPARIN SODIUM,PORCINE/PF 5,000 UNIT/0.5 ML SYRINGE SQ SCH ×2 (07:33→17:42)
[2021-03-04] MEDS: VENLAFAXINE HCL ER 150 MG CAP PO SCH (07:34)
[2021-03-04 10:39] LABS: INR 1.1 (<1.2); Partial Thromboplastin Time 26.1 sec (22.0-30.0); Prothrombin Time 11.3 sec (9.0-12.0)
[2021-03-04] MEDS: PANTOPRAZOLE 40 MG/10 ML VIAL IVP SCH (10:45)
[2021-03-04] MEDS: LISINOPRIL-HCTZ 20-12.5 MG 1 EACH TAB PO SCH (10:45)
[2021-03-04] MEDS: LACTATED RINGERS 1,000 ML IV SCH ×3 (11:08→11:23)
[2021-03-04 11:09] LABS: Glucose,Whole Blood 120 mg/dL (75-99)
[2021-03-04] MEDS: ONDANSETRON 4 MG/2 ML VIAL IVP STA (11:18)
[2021-03-04] MEDS ORDERED: fentaNYL (PF) 50 MCG/ML 2 ML AMP ONE (11:21)
[2021-03-04] MEDS ORDERED: ROCURONIUM 10 MG/ML (5 ML VIAL) IV ONE (11:21)
[2021-03-04] MEDS ORDERED: PROPOFOL 10 MG/ML 20 ML VIAL IV ONE (11:21)
[2021-03-04] MEDS ORDERED: SUCCINYLCHOLINE CHLORIDE VIAL 200 MG/10 ML VIAL IV ONE (11:21)
[2021-03-04] MEDS ORDERED: PHENYLEPHRINE-0.9% NACL SYG 1,000 MCG/10 ML SYRINGE ONE (11:21)
[2021-03-04] MEDS ORDERED: HYDROmorphone (PF) 1 MG/ML ONE (11:21)
[2021-03-04] MEDS ORDERED: NEOSTIGMINE 1 MG/ML 10 ML VIAL ONE (11:21)
[2021-03-04] MEDS ORDERED: MIDAZOLAM 2 MG/2 ML VIAL ONE (11:21)
[2021-03-04] MEDS ORDERED: LIDOCAINE 1% INJ 10MG/ML (20 ML MDV) ONE (11:21)
[2021-03-04] MEDS ORDERED: GLYCOPYRROLATE 0.2 MG/ML 2 ML VIAL ONE (11:21)
[2021-03-04] MEDS ORDERED: HEPARIN SODIUM,PORCINE 5,000 UNIT/ML 1 ML VIAL ONE (11:21)
[2021-03-04] MEDS ORDERED: SODIUM CHLORIDE 0.9% 100 ML with ceFAZolin 2,000 MG IV ONE ×2 (12:06)
[2021-03-04] MEDS ORDERED: LACTATED RINGERS 1,000 ML IV ONE ×3 (12:10→13:09)
[2021-03-04] MEDS ORDERED: SODIUM CHLORIDE 0.9% 1,000 ML IV ONE ×4 (12:13→12:53)
[2021-03-04] MEDS ORDERED: PIPERACILLIN-TAZOBACTAM 3.375 GM in SODIUM CHLORIDE 0.9% 100 ML IVPB SCH (14:00)
--- NOTE | 2021-03-04 14:03 | P.OP ---
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 Patient is very large is BMI 60. Patient presents emergency room with obstructive symptoms is found have evidence of a colon obstruction CAT scan. Patient states retrospectively has had abdominal pain for several months. Description of Procedure: Patient's placed on the operative table in the supine position. Patient with morbid obese. His abdomen was very large. His abdomen was prepped and draped usual sterile fashion. The abdomen was entered through midline incision. Upon entering the abdomen the Omni retractors placed a wound. The abdominal wall was retracted. The cecum was massively distended. Cecum was approximately 15 cm in diameter. Due to the massive distention a decompressive cecostomy was performed and then the area cecostomy was repaired using the TA stapler. The colon was followed to the level of the spleen. And at the splenic flexure there was an obvious colon tumor with obstruction. At this point the transverse colon was transected proximally and then the left colon was mobilized and then the left colon was transected with the MARYAM stapler. The splenic flexure was partially mobilized. It was obvious of the spleen was adherent to the tumor. The the tumor growing in the spleen made and necessity to do cholecystectomy. At this point the greater curvature stomach was divided using the Enseal device. The splenic artery was seen in the retrogastric area and then ligated with 0 silk ties. The spleen was then mobilized medially and then sponged placed behind the spleen elevated. These splenic hilum was then transected using the GI stapler with a wade staple load. The mesentery the colon was divided using the Enseal device. The specimens of pathology. There is no bleeding seen. A portion of omentum appeared to be nonviable and this was dissected with Enseal and sent to pathology. The distal colon was examined. There is no history: Tumors or obstruction of the distal colon. This point the colostomy was chosen in the right quadrant. A suitable spot spot was made using the was created using electrocautery. The colon was then brought up through the abdominal wall. The abdomen was irrigated no bleeding was seen. The fascia was closed with looped #1 PDS suture. 2 sutures used to close the abdomen. The serosal stable. The colostomy then matured with 3-0 Vicryl suture. Patient top she will was sent to recovery room in stable condition
[2021-03-04] MEDS ORDERED: KETOROLAC 15 MG/ML 1 ML VIAL IVP PRN (14:04)
[2021-03-04] MEDS ORDERED: BENZOCAINE/MENTHOL LOZENG 1 EACH LOZENGE MUCOUS MEM PRN (14:04)
[2021-03-04] MEDS ORDERED: METOCLOPRAMIDE 5 MG/ML 2 ML VIAL IVP PRN (14:04)
[2021-03-04] MEDS ORDERED: HYDROmorphone 0.5 MG/0.5 ML SYRINGE IVP ONE ×3 (14:25→15:05)
--- NOTE | 2021-03-04 15:06 | P.PN ---
Subjective Progress Note Date: 03/04/21 This is a 60-year-old male who was recently admitted under surgical services and is being closely monitored. Patient underwent CTA yesterday for elevated d- dimer of 5.58 and CTA showed no evidence of any central pulmonary embolism with some patchy atelectasis at the lung bases and midlung laguna with no suspicious pulmonary mass and an aneurysm of the ascending aorta that is approximately 5 cm with no dissection noted. There is no filling defects noted of the pulmonary arteries. Patient is being emergently brought to the operating room right now per surgery for emergent services regarding bowel obstruction. Will await surgical report. Labs: WBC is 12.1, hemoglobin is 15.4, platelets are 347, INR is 1.1, sodium is 136, potassium 4.9, BUN 17, creatinine 0.87, calcium 9.1, urinalysis is negative. Review of systems: Constitutional: No reports of fatigue, fever, or chills Cardiovascular: No reports of chest pain or palpitations Respiratory: No reports of shortness of breath or cough GI: No reports of nausea, vomiting, or diarrhea, reports abdominal discomfort : No reports of dysuria or retention Neurovascular: No reports of weakness or numbness All medications have been reviewed Active Medications Alvimopan (Alvimopan 12 Mg Capsule) 12 mg PO BID [facility] Stop: 03/11/21 21:01 Benzocaine/Menthol (Benzocaine/Menthol Lozeng 1 Each Lozenge) 1 each MUCOUS MEM Q1HR PRN PRN Reason: Sore Throat Lisinopril/HCTZ (Lisinopril-Hctz 20-12.5 Mg 1 Each Tab) 1 each PO DAILY [facility] Last Admin: 03/04/21 10:45 Dose: Not Given Documented by: Heparin Sodium (Porcine) (Heparin Sodium,Porcine/Pf 5,000 Unit/0.5 Ml Syringe) 5,000 unit SQ Q8HR [facility] Hydralazine HCl (Hydralazine Hcl 20 Mg/Ml 1 Ml Vial) 10 mg IVP Q4HR PRN PRN Reason: Blood Pressure - High Hydromorphone HCl (Hydromorphone 1 Mg/Ml 1 Ml Syringe) 1 mg IVP Q3HR PRN PRN Reason: Severe Pain Lactated Ringer's (Lactated Ringers) 1,000 mls @ 20 mls/hr IV .Q24H [facility] Last Admin: 03/04/21 11:23 Dose: 50 mls Documented by: Sodium Chloride (Saline 0.9%) 1,000 mls @ 100 mls/hr IV .Q10H [facility] Last Admin: 03/04/21 11:02 Dose: Not Given Documented by: Piperacillin Sod/Tazobactam (Sod 3.375 gm/ Sodium Chloride) 100 mls @ 25 mls/hr IVPB Q8H [facility] Potassium Chloride/Dextrose/Sod Cl (D5%-1/2ns-Kcl 20 Meq/L Iv Solution) 1,000 mls @ 125 mls/hr IV .Q8H [facility] Ketorolac Tromethamine (Ketorolac 15 Mg/Ml 1 Ml Vial) 15 mg IVP Q6HR PRN PRN Reason: Mild to Moderate Pain Stop: 03/06/21 14:05 Levothyroxine Sodium (Levothyroxine 125 Mcg Tab) 125 mcg PO DAILY@0630 [facility] Last Admin: 03/04/21 05:15 Dose: Not Given Documented by: Lidocaine HCl (Lidocaine 1% (10mg/Ml) For Iv Start) 0.1 ml INTRADERMA PER PROTOCOL PRN PRN Reason: IV Start Lorazepam (Lorazepam 2 Mg/Ml Inj) 0.5 mg IV Q6HR PRN PRN Reason: Anxiety Last Admin: 03/03/21 20:24 Dose: 0.5 mg Documented by: Metoclopramide HCl (Metoclopramide 5 Mg/Ml 2 Ml Vial) 10 mg IVP Q6HR PRN PRN Reason: Nausea and Vomiting Morphine Sulfate (Morphine Sulfate 4 Mg/Ml Syringe) 4 mg IV Q4HR PRN PRN Reason: Severe Pain Last Admin: 03/04/21 04:32 Dose: 4 mg Documented by: Naloxone HCl (Naloxone 0.4 Mg/Ml 1 Ml Vial) 0.2 mg IV Q2M PRN PRN Reason: Opioid Reversal Ondansetron HCl (Ondansetron 4 Mg/2 Ml Vial) 4 mg IVP Q8HR PRN PRN Reason: Nausea And Vomiting Last Admin: 03/03/21 07:29 Dose: 4 mg Documented by: Pantoprazole Sodium (Pantoprazole 40 Mg/10 Ml Vial) 40 mg IVP BID [facility] Last Admin: 03/04/21 10:45 Dose: Not Given Documented by: Venlafaxine HCl (Venlafaxine Hcl Er 150 Mg Cap) 150 mg PO DAILY [facility] Last Admin: 03/04/21 07:34 Dose: Not Given Documented by: Physical Exam: Gen: This is a 60-year-old male who is awake, alert and oriented 3, well- developed, well-nourished. Morbidly obese Temp is 98.3 F, pulse is 69, respira tions are 17, blood pressure is 130/77, oxygen saturation is 94% on room air HEENT: Head is atraumatic, normocephalic. Pupils equal, round. Sclerae is anicteric. NECK: Supple. No JVD. No lymphadenopathy. No thyromegaly. LUNGS: Diminished breath sounds bilaterally with no wheezing or rhonchi noted. No intercostal retractions. HEART: S1, S2 are muffled ABDOMEN: Soft. Obese. Bowel sounds are present. No masses. No tenderness. EXTREMITIES: No pedal edema. No calf tenderness. NEUROLOGICAL: Patient is awake, alert and oriented x3. Cranial nerves 2 through 12 are grossly intact. Assessment: Acute mechanical large bowel obstruction, rule out annular tumor Increased white count hyponatremia Increased random blood sugar hypertension Hyperlipidemia history of pneumonia history of hypothyroidism history of diverticulosis history of aortic aneurysm 4.5 cm, thoracic History of Covid last month, asymptomatic History of chronic low back pain and shoulder pain Hypothyroidism History of umbilical hernia History of anxiety, depression Obesity with a body mass index of 60 Full code Plan: Recommend to continue with current medications and management. Pain management per surgical services. Patient is currently nothing by mouth and being taken down to the OR at this time for small bowel obstruction and will await surgical report. Encouraged incentive spirometer use and instructed the patient to keep using at least 10 times every hour while awake. Patient did have elevated d-dimer and CTA was done showing no evidence of pulmonary embolism and continued to show aortic aneurysm approximately 5 cm. Patient denies any chest pain, shortness of breath, lightheadedness. White blood count mildly elevated and will monitor closely and repeat labs. Will continue to follow along with surgery during hospitalization. Due to multiple complex medical issues, prognosis is guarded. Further recommendations to follow based on the clinical course of the patient. Objective - Vital Signs Vital signs: Vital Signs Temp 98.1 F 03/04/21 10:58 Pulse 96 03/04/21 10:58 Resp 20 12/15/21 10:58 BP 132/66 03/04/21 10:58 Pulse Ox 96 03/04/21 10:58 Intake & Output 03/03/21 03/04/21 03/04/21 18:59 06:59 18:59 Intake Total 060 020 2776 Balance 018 188 4549 Weight 168.736 kg Intake: IV 135 249 0591 Sodium Chloride 0.9% 1, 750 540 000 ml @ 60 mls/hr IV . [id number] [facility] Rx#:[id number] Intake, IV Titration 100 Amount Piperacillin-Tazobactam 3 100 .375 gm In Sodium Chloride 0.9% 100 ml @ 25 mls/hr IVPB Q8H [facility] Rx#: [id number] Other: Voiding Method Toilet # Voids 2 - Labs CBC & Chem 7: 03/04/21 06:03 03/04/21 06:03 Labs: Abnormal Lab Results - Last 24 Hours (Table) 03/03/21 03/03/21 03/04/21 Range/Units 15:27 17:43 03:52 WBC (3.8-10.6) k/uL MCHC (31.0-37.0) g/dL Neutrophils # (1.3-7.7) k/uL D-Dimer 5.58 H (<0.60) mg/L FEU Sodium (137-145) mmol/L Chloride (98-107) mmol/L Glucose (74-99) mg/dL POC Glucose (mg/dL) (75-99) mg/dL C-Reactive Protein 2.9 H (<1.0) mg/dL Ur Specific [place] >1.050 H (1.001-1.035) Urine Protein Trace H (Negative) Ur Leukocyte Esterase Trace H (Negative) Urine Bacteria Rare H (None) /hpf Crossmatch 03/04/21 03/04/21 03/04/21 Range/Units 06:03 06:03 10:02 WBC 12.1 H (3.8-10.6) k/uL MCHC 30.6 L (31.0-37.0) g/dL Neutrophils # 9.1 H (1.3-7.7) k/uL D-Dimer (<0.60) mg/L FEU Sodium 136 L (137-145) mmol/L Chloride 96 L (98-107) mmol/L Glucose 131 H (74-99) mg/dL POC Glucose (mg/dL) (75-99) mg/dL C-Reactive Protein (<1.0) mg/dL Ur Specific [place] (1.001-1.035) Urine Protein (Negative) Ur Leukocyte Esterase (Negative) Urine Bacteria (None) /hpf Crossmatch See Detail 03/04/21 Range/Units 11:07 WBC (3.8-10.6) k/uL MCHC (31.0-37.0) g/dL Neutrophils # (1.3-7.7) k/uL D-Dimer (<0.60) mg/L FEU Sodium (137-145) mmol/L Chloride (98-107) mmol/L Glucose (74-99) mg/dL POC Glucose (mg/dL) 120 H (75-99) mg/dL C-Reactive Protein (<1.0) mg/dL Ur Specific [place] (1.001-1.035) Urine Protein (Negative) Ur Leukocyte Esterase (Negative) Urine Bacteria (None) /hpf Crossmatch
[2021-03-04] MEDS: D5-0.45% NACL WITH KCL 20MEQ/L 1,000 ML IV SCH (15:30)
[2021-03-04 16:44] LABS: Basophils % (A) 0 %; Eosinophils # (A) 0.1 k/uL (0-0.7); Eosinophils % (A) 0 %; HCT 51.1 % (39.0-53.0); HGB 15.1 gm/dL (13.0-17.5); Hypochromasia Marked; Lymphocytes # (A) 0.9 k/uL (1.0-4.8); Lymphocytes % (A) 6 %; MCH 26.7 pg (25.0-35.0); MCHC 29.6 g/dL (31.0-37.0); MCV 90.4 fL (80.0-100.0); Mean Platelet Volume 8.3; Monocytes # (A) 0.6 k/uL (0-1.0); Monocytes % (A) 4 %; Neutrophils # (A) 13.8 k/uL (1.3-7.7); Neutrophils % (A) 89 %; Platelet Count 391 k/uL (150-450); RBC 5.65 m/uL (4.30-5.90); RDW 15.1 % (11.5-15.5); WBC 15.5 k/uL (3.8-10.6)
[2021-03-04 16:50] LABS: African American GFR (CKD) >90 (>60 ml/min/1.73 sqM); Anion Gap 11 mmol/L; Blood Urea Nitrogen 16 mg/dL (9-20); Calcium 8.4 mg/dL (8.4-10.2); Carbon Dioxide 24 mmol/L (22-30); Chloride 101 mmol/L (98-107); Glucose 164 mg/dL (74-99); Non-African American GFR(CKD) >90 (>60 ml/min/1.73 sqM); Potassium 5.3 mmol/L (3.5-5.1); Sodium 136 mmol/L (137-145)
[2021-03-04] MEDS: HYDROmorphone 1 MG/ML 1 ML SYRINGE IVP PRN (17:48)
[2021-03-05] MEDS: MORPHINE SULFATE 4 MG/ML SYRINGE IV PRN (00:01)
[2021-03-05] MEDS: PANTOPRAZOLE 40 MG/10 ML VIAL IVP SCH ×3 (00:02→19:52)
[2021-03-05] MEDS: PIPERACILLIN-TAZOBACTAM 3.375 GM in SODIUM CHLORIDE 0.9% 100 ML IVPB SCH ×3 (00:02→16:44)
[2021-03-05] MEDS: HEPARIN SODIUM,PORCINE/PF 5,000 UNIT/0.5 ML SYRINGE SQ SCH ×3 (00:03→16:44)
[2021-03-05] MEDS: HYDROmorphone 1 MG/ML 1 ML SYRINGE IVP PRN ×4 (03:11→15:51)
[2021-03-05] MEDS: SODIUM CHLORIDE 0.9% 1,000 ML IV SCH ×2 (03:50→08:07)
[2021-03-05] MEDS: D5-0.45% NACL WITH KCL 20MEQ/L 1,000 ML IV SCH ×4 (03:50→22:18)
[2021-03-05] MEDS: LEVOTHYROXINE 125 MCG TAB PO SCH (06:22)
[2021-03-05] MEDS: LISINOPRIL-HCTZ 20-12.5 MG 1 EACH TAB PO SCH (07:30)
[2021-03-05] MEDS: VENLAFAXINE HCL ER 150 MG CAP PO SCH (07:30)
[2021-03-05] MEDS: ALVIMOPAN 12 MG CAPSULE PO SCH ×2 (07:30→19:51)
[2021-03-05 09:03] LABS: HCT 51.3 % (39.6-50.0); HGB 14.7 g/dL (13.0-17.0); MCH 25.2 pg (27.0-32.0); MCHC 28.7 g/dL (32.0-37.0); MCV 87.8 fL (80.0-97.0); Mean Platelet Volume 10.7 fL (9.5-12.2); Platelet Count 444 X 10*3/uL (140-440); RBC 5.84 X 10*6/uL (4.40-5.60); RDW 15.9 % (11.5-14.5)
[2021-03-05 09:50] LABS: Basophils # (M) 0 X 10*3/uL (0.00-0.10); Eosinophils # (M) 0 X 10*3/uL (0.04-0.35); Lymphocytes # (M) 1.36 X 10*3/uL (0.90-5.00); Monocytes # (M) 0.76 X 10*3/uL (0.20-1.00); Neutrophils # (M) 12.99 X 10*3/uL (2.00-8.90); Neutrophils % (M) 86 %
[2021-03-05 10:03] LABS: African American GFR (CKD) 94.4 (60.0-200.0); Albumin 3.3 g/dL (3.8-4.9); Albumin/Globulin Ratio 1.38 (1.60-3.17); Anion Gap 10.1 mmol/L (10.00-18.00); BUN/Creat Ratio 11.2 Ratio (12.00-20.00); Blood Urea Nitrogen 11.2 mg/dL (9.0-27.0); Calcium 8.5 mg/dL (8.7-10.3); Carbon Dioxide 28.9 mmol/L (20.0-27.5); Globulin 2.4 g/dL (1.6-3.3); Non-African American GFR(CKD) 81.4 (60.0-200.0); Potassium 5.4 mmol/L (3.5-5.5); Total Bilirubin 0.4 mg/dL (0.30-1.20); Total Protein 5.7 g/dL (6.2-8.2)
[2021-03-05] MEDS: KETOROLAC 30 MG/ML 1 ML VIAL IVP SCH ×2 (12:05→19:50)
--- NOTE | 2021-03-05 12:25 | P.PN ---
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 Patient is sitting up at bedside chair. He is having pain mostly in the right lower abdomen. Serosanguineous output through ostomy otherwise no stool or air.. Has NG tube in place. Large amount of NG tube output due to patient and taking clear liquids. Denies any nausea or vomiting. Afebrile. WBC 15.10 Hgb 14.7 platelets 444 sodium 140 potassium 5.4 creatinine 1.0 urine is dark. NG tube output reddish color likely due to the popsicles patient is eating PHYSICAL EXAM: VITAL SIGNS: Reviewed. GENERAL: Well-developed in no acute distress. HEENT: No sclera icterus. Extraocular movements grossly intact. Moist buccal mucosa. Head is atraumatic, normocephalic. ABDOMEN: Soft. Obese Nondistended. Tenderness mostly on the palpation of the right lower abdomen. Ostomy on the right side with serosanguineous output. NEUROLOGIC: Alert and oriented. Cranial nerves II through XII grossly intact. ASSESSMENT: 1. 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 Leukocytosis 3. Hyperkalemia PLAN: -Increase IV fluids to 130 and discontinue potassium from IV fluids due to hyperkalemia -Change Toradol to scheduled to help with pain control -Educate patient to go a little slower with the clear liquid diet -Increase activity -Educated patient to use incentive spirometer -Discontinue Arroyo catheter later today -DVT prophylaxis subcu heparin -GI prophylaxis Protonix Physician Viticulturist note has been reviewed by physician. Signing provider agrees with the documented findings, assessment, and plan of care. Objective - Vital Signs Vital signs: Vital Signs Temp 98.7 F 03/05/21 07:59 Pulse 100 03/05/21 07:59 Resp 19 03/05/21 07:59 BP 141/85 03/05/21 07:59 Pulse Ox 94 L 03/05/21 07:59 Intake & Output 1203/05/21 03/05/21 18:59 06:59 18:59 Intake Total 3800 1700 Output Total 240 2050 Balance 3560 -350 Intake: IV 3800 1000 Sodium Chloride 0.9% 1, 1000 000 ml @ 60 mls/hr IV . [id number] [facility] Rx#:[id number] Oral 700 Output: Gastric Drainage 1550 Urine 190 500 Stool 0 Estimated Blood Loss 50 Other: Voiding Method Toilet Indwelling Catheter - Labs CBC & Chem 7: 03/05/21 06:03 03/05/21 06:03 Labs: Abnormal Lab Results - Last 24 Hours (Table) 03/04/21 03/04/21 03/04/21 Range/Units 10:02 16:06 16:06 WBC 15.5 H (3.8-10.6) k/uL RBC (4.40-5.60) X 10*6/uL Hct (39.6-50.0) % MCH (27.0-32.0) pg MCHC 29.6 L (31.0-37.0) g/dL RDW (11.5-14.5) % Plt Count (140-440) X 10*3/uL Neutrophils # 13.8 H (1.3-7.7) k/uL Neutrophils # (Manual) (2.00-8.90) X 10*3/uL Lymphocytes # 0.9 L (1.0-4.8) k/uL Eosinophils # (Manual) (0.04-0.35) X 10*3/uL Sodium 136 L (137-145) mmol/L Potassium 5.3 H (3.5-5.1) mmol/L Carbon Dioxide (20.0-27.5) mmol/L BUN/Creatinine Ratio (12.00-20.00) Ratio Glucose 164 H (74-99) mg/dL Calcium (8.7-10.3) mg/dL Total Protein (6.2-8.2) g/dL Albumin (3.8-4.9) g/dL Albumin/Globulin Ratio (1.60-3.17) g/dL Crossmatch See Detail 03/05/21 03/05/21 Range/Units 06:03 06:03 WBC 15.10 H (3.8-10.6) k/uL RBC 5.84 H (4.40-5.60) X 10*6/uL Hct 51.3 H (39.6-50.0) % MCH 25.2 L (27.0-32.0) pg MCHC 28.7 L (31.0-37.0) g/dL RDW 15.9 H (11.5-14.5) % Plt Count 444 H (140-440) X 10*3/uL Neutrophils # (1.3-7.7) k/uL Neutrophils # (Manual) 12.99 H (2.00-8.90) X 10*3/uL Lymphocytes # (1.0-4.8) k/uL Eosinophils # (Manual) 0 L (0.04-0.35) X 10*3/uL Sodium (137-145) mmol/L Potassium (3.5-5.1) mmol/L Carbon Dioxide 28.9 H (20.0-27.5) mmol/L BUN/Creatinine Ratio 11.20 L (12.00-20.00) Ratio Glucose 162 H (74-99) mg/dL Calcium 8.5 L (8.7-10.3) mg/dL Total Protein 5.7 L (6.2-8.2) g/dL Albumin 3.3 L (3.8-4.9) g/dL Albumin/Globulin Ratio 1.38 L (1.60-3.17) g/dL Crossmatch
[2021-03-05] MEDS ORDERED: SODIUM CHLORIDE 0.9% 500 ML 500 ML IV ONE (14:23)
--- NOTE | 2021-03-05 17:21 | P.PN ---
Subjective Progress Note Date: 03/05/21 This is a 60-year-old male who was recently admitted under surgical services and is being closely monitored. Patient underwent CTA yesterday for elevated d- dimer of 5.58 and CTA showed no evidence of any central pulmonary embolism with some patchy atelectasis at the lung bases and midlung laguna with no suspicious pulmonary mass and an aneurysm of the ascending aorta that is approximately 5 cm with no dissection noted. There is no filling defects noted of the pulmonary arteries. Patient is being emergently brought to the operating room right now per surgery for emergent services regarding bowel obstruction. Will await surgical report. 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 Patient continues with NG tube and is currently ice chips. Patient is drinking excessive amounts of water and discussed with the patient about slowly following surgical recommendations status post a major surgery as such. Patient is extremely anxious as he was told about a tumor that was removed and concerned if it is cancer. We'll consult oncology to discuss with the patient. She denies any suicidal thoughts or thoughts of wanting to harm himself or others but patient does report feeling overall anxious and overwhelmed about this tumor. Patient continues to have pain in the abdominal area and surgical dressing is currently dry and intact. Patient continues with indwelling Arroyo catheter which will be removed as patient has been getting up and getting to the chair. Potassium was found to be elevated today and discontinuing IV fluids that contained potassium in it. Will repeat labs. Labs: WBC is 15.1, hemoglobin is 14.7, platelets are 444, sodium is 140, potassium 5.4, BUN 11.2, creatinine 1.0, calcium 8.5 Review of systems: Constitutional: No reports of fatigue, fever, or chills Cardiovascular: No reports of chest pain or palpitations Respiratory: No reports of shortness of breath or cough GI: No reports of nausea, vomiting, or diarrhea, reports abdominal discomfort extreme tenderness at the site : No reports of dysuria or retention Neurovascular: No reports of weakness or numbness All medications have been reviewed Active Medications Alvimopan (Alvimopan 12 Mg Capsule) 12 mg PO BID [facility] Stop: 03/11/21 21:01 Last Admin: 03/05/21 07:30 Dose: 12 mg Documented by: Benzocaine/Menthol (Benzocaine/Menthol Lozeng 1 Each Lozenge) 1 each MUCOUS MEM Q1HR PRN PRN Reason: Sore Throat Lisinopril/HCTZ (Lisinopril-Hctz 20-12.5 Mg 1 Each Tab) 1 each PO DAILY [facility] Last Admin: 03/05/21 07:30 Dose: 1 each Documented by: Heparin Sodium (Porcine) (Heparin Sodium,Porcine/Pf 5,000 Unit/0.5 Ml Syringe) 5,000 unit SQ Q8HR [facility] Last Admin: 03/05/21 16:44 Dose: 5,000 unit Documented by: Hydralazine HCl (Hydralazine Hcl 20 Mg/Ml 1 Ml Vial) 10 mg IVP Q4HR PRN PRN Reason: Blood Pressure - High Hydromorphone HCl (Hydromorphone 1 Mg/Ml 1 Ml Syringe) 1 mg IVP Q3HR PRN PRN Reason: Severe Pain Last Admin: 03/05/21 15:51 Dose: 1 mg Documented by: Potassium Chloride/Dextrose/Sod Cl (D5%-1/2ns-Kcl 20 Meq/L Iv Solution) 1,000 mls @ 130 mls/hr IV .Q7H42M [facility] Last Admin: 03/05/21 16:44 Dose: 130 mls/hr Documented by: Piperacillin Sod/Tazobactam (Sod 3.375 gm/ Sodium Chloride) 100 mls @ 25 mls/hr IVPB Q8HR [facility] Last Admin: 03/05/21 16:44 Dose: 25 mls/hr Documented by: Ketorolac Tromethamine (Ketorolac 30 Mg/Ml 1 Ml Vial) 15 mg IVP Q6HR [facility] Stop: 03/07/21 12:01 Last Admin: 03/05/21 12:05 Dose: 15 mg Documented by: Levothyroxine Sodium (Levothyroxine 125 Mcg Tab) 125 mcg PO DAILY@0630 [facility] Last Admin: 03/05/21 06:22 Dose: Not Given Documented by: Lidocaine HCl (Lidocaine 1% (10mg/Ml) For Iv Start) 0.1 ml INTRADERMA PER PROTOCOL PRN PRN Reason: IV Start Lorazepam (Lorazepam 2 Mg/Ml Inj) 0.5 mg IV Q6HR PRN PRN Reason: Anxiety Last Admin: 03/03/21 20:24 Dose: 0.5 mg Documented by: Metoclopramide HCl (Metoclopramide 5 Mg/Ml 2 Ml Vial) 10 mg IVP Q6HR PRN PRN Reason: Nausea and Vomiting Morphine Sulfate (Morphine Sulfate 4 Mg/Ml Syringe) 4 mg IV Q4HR PRN PRN Reason: Severe Pain Last Admin: 03/05/21 00:01 Dose: 4 mg Documented by: Naloxone HCl (Naloxone 0.4 Mg/Ml 1 Ml Vial) 0.2 mg IV Q2M PRN PRN Reason: Opioid Reversal Ondansetron HCl (Ondansetron 4 Mg/2 Ml Vial) 4 mg IVP Q8HR PRN PRN Reason: Nausea And Vomiting Last Admin: 03/03/21 07:29 Dose: 4 mg Documented by: Pantoprazole Sodium (Pantoprazole 40 Mg/10 Ml Vial) 40 mg IVP BID [facility] Last Admin: 03/05/21 07:30 Dose: 40 mg Documented by: Venlafaxine HCl (Venlafaxine Hcl Er 150 Mg Cap) 150 mg PO DAILY [facility] Last Admin: 03/05/21 07:30 Dose: 150 mg Documented by: Physical Exam: Gen: This is a 60-year-old male who is awake, alert and oriented 3, well- developed, well-nourished. Morbidly obese Temp is 98.7 F, pulse is 100, respirations are 19, blood pressure is 141/85, oxygen saturation is 94% on 4 L nasal cannula HEENT: Head is atraumatic, normocephalic. Pupils equal, round. Sclerae is anicteric. NECK: Supple. No JVD. No lymphadenopathy. No thyromegaly. LUNGS: Diminished breath sounds bilaterally with no wheezing or rhonchi noted. No intercostal retractions. HEART: S1, S2 are muffled ABDOMEN: Soft. Obese. Bowel sounds are present. No masses. No tenderness. EXTREMITIES: No pedal edema. No calf tenderness. NEUROLOGICAL: Patient is awake, alert and oriented x3. Cranial nerves 2 through 12 are grossly intact. Assessment: Acute mechanical large bowel obstruction, rule out annular tumor Status post left colectomy with transverse colon colostomy, takedown of stomach flexure, splenectomy and omentectomy for colon obstruction due to carcinoma of t he colon at the splenic flexure invading the spleen Increased white count hyponatremia Hyperkalemia Increased random blood sugar hypertension Hyperlipidemia history of pneumonia history of hypothyroidism history of diverticulosis history of aortic aneurysm 4.5 cm, thoracic History of Covid last month, asymptomatic History of chronic low back pain and shoulder pain Hypothyroidism History of umbilical hernia History of anxiety, depression Obesity with a body mass index of 60 Full code Plan: Recommend to continue with current medications and management. Pain management per surgical services. Patient is currently clear liquids and ice chips continued NG tube. Strongly encourage the patient to slow down on oral intake as the patient has just underwent a major surgery and needs to advance slowly as tolerated per surgical recommendations as nursing staff reports to him drinking large amounts of water. No reports of gas or bowel movement and bowel sounds are sluggish. Encouraged incentive spirometer use and instructed the patient to keep using at least 10 times every hour while awake. Patient denies any chest pain, shortness of breath, and currently maintained on 4 L via nasal cannula and discussed with nursing staff about weaning FiO2 as tolerated. will monitor closely and repeat labs. Will continue to follow along with surgery during hospitalization. Due to multiple complex medical issues, prognosis is guarded. Further recommendations to follow based on the clinical course of the patient. Objective - Vital Signs Vital signs: Vital Signs Temp 98.7 F 03/05/21 07:59 Pulse 100 03/05/21 07:59 Resp 19 03/05/21 07:59 BP 141/85 03/05/21 07:59 Pulse Ox 94 L 03/05/21 07:59 Intake & Output 03/04/21 03/05/21 03/05/21 18:59 06:59 18:59 Intake Total 3800 1700 Output Total 240 2050 Balance 3560 -350 Intake: IV 3800 1000 Sodium Chloride 0.9% 1, 1000 000 ml @ 60 mls/hr IV . [id number] [facility] Rx#:[id number] Oral 700 Output: Gastric Drainage 1550 Urine 190 500 Stool 0 Estimated Blood Loss 50 Other: Voiding Method Toilet Indwelling Catheter - Labs CBC & Chem 7: 03/05/21 06:03 03/05/21 06:03 Labs: Abnormal Lab Results - Last 24 Hours (Table) 03/04/21 03/04/21 03/04/21 Range/Units 10:02 11:07 16:06 WBC 15.5 H (3.8-10.6) k/uL MCHC 29.6 L (31.0-37.0) g/dL Neutrophils # 13.8 H (1.3-7.7) k/uL Lymphocytes # 0.9 L (1.0-4.8) k/uL Sodium (137-145) mmol/L Potassium (3.5-5.1) mmol/L Glucose (74-99) mg/dL POC Glucose (mg/dL) 120 H (75-99) mg/dL Crossmatch See Detail 03/04/21 Range/Units 16:06 WBC (3.8-10.6) k/uL MCHC (31.0-37.0) g/dL Neutrophils # (1.3-7.7) k/uL Lymphocytes # (1.0-4.8) k/uL Sodium 136 L (137-145) mmol/L Potassium 5.3 H (3.5-5.1) mmol/L Glucose 164 H (74-99) mg/dL POC Glucose (mg/dL) (75-99) mg/dL Crossmatch
[2021-03-06] MEDS: KETOROLAC 30 MG/ML 1 ML VIAL IVP SCH ×4 (00:02→18:00)
[2021-03-06] MEDS: PIPERACILLIN-TAZOBACTAM 3.375 GM in SODIUM CHLORIDE 0.9% 100 ML IVPB SCH ×3 (01:16→18:00)
[2021-03-06] MEDS: HEPARIN SODIUM,PORCINE/PF 5,000 UNIT/0.5 ML SYRINGE SQ SCH ×2 (01:16→09:07)
[2021-03-06] MEDS: LEVOTHYROXINE 125 MCG TAB PO SCH (06:28)
[2021-03-06] MEDS: PANTOPRAZOLE 40 MG/10 ML VIAL IVP SCH ×2 (09:07→20:43)
[2021-03-06] MEDS: ALVIMOPAN 12 MG CAPSULE PO SCH ×2 (09:07→20:45)
[2021-03-06] MEDS: VENLAFAXINE HCL ER 150 MG CAP PO SCH (09:07)
[2021-03-06] MEDS: LISINOPRIL-HCTZ 20-12.5 MG 1 EACH TAB PO SCH (09:13)
[2021-03-06 09:32] LABS: Basophils # (A) 0.04 X 10*3/uL (0.00-0.10); Basophils % (A) 0.2 %; Eosinophils # (A) 0.24 X 10*3/uL (0.04-0.35); Eosinophils % (A) 1.4 %; HCT 44.4 % (39.6-50.0); HGB 12.7 g/dL (13.0-17.0); Lymphocytes # (A) 1.72 X 10*3/uL (0.90-5.00); MCH 25.5 pg (27.0-32.0); MCHC 28.6 g/dL (32.0-37.0); MCV 89.2 fL (80.0-97.0); Mean Platelet Volume 10.7 fL (9.5-12.2); Monocytes # (A) 2.19 X 10*3/uL (0.20-1.00); Monocytes % (A) 12.7 %; Neutrophils # (A) 12.93 X 10*3/uL (1.80-7.70); Neutrophils % (A) 74.8 %; Platelet Count 426 X 10*3/uL (140-440); RBC 4.98 X 10*6/uL (4.40-5.60); WBC 17.28 X 10*3/uL (4.50-10.00)
[2021-03-06 10:15] LABS: African American GFR (CKD) 107.2 (60.0-200.0); Anion Gap 10.2 mmol/L (10.00-18.00); BUN/Creat Ratio 10.33 Ratio (12.00-20.00); Blood Urea Nitrogen 9.3 mg/dL (9.0-27.0); Calcium 8.6 mg/dL (8.7-10.3); Carbon Dioxide 28.8 mmol/L (20.0-27.5); Non-African American GFR(CKD) 92.5 (60.0-200.0); Potassium 5.1 mmol/L (3.5-5.5)
[2021-03-06] MEDS: HYDROmorphone 1 MG/ML 1 ML SYRINGE IVP PRN (10:28)
[2021-03-06 10:36] VITALS: BMI 60.0
--- NOTE | 2021-03-06 11:52 | P.PN ---
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 Patient is sitting up at bedside chair. He does complain of abdominal pain. He is due for his morning pain medication. He denies any nausea. He does have air in his ostomy bag. Currently has NG tube in place. Afebrile. WBC is up to 17.28 Hgb 12.7 sodium 137 potassium 5.1 and cr 0.9. Patient did receive a 500 mL fluid bolus due to his urine being dark yesterday. PHYSICAL EXAM: VITAL SIGNS: Reviewed. GENERAL: Well-developed in no acute distress. HEENT: No sclera icterus. Extraocular movements grossly intact. Moist buccal mucosa. Head is atraumatic, normocephalic. ABDOMEN: Soft. Obese Nondistended. Tenderness mostly on the palpation of the right lower abdomen. Ostomy on the right side with serosanguineous output and air NEUROLOGIC: Alert and oriented. Cranial nerves II through XII grossly intact. ASSESSMENT: 1. 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 Leukocytosis 3. Hyperkalemia PLAN: -Discontinue NG tube -Continue clear liquid diet -Continue current pain medication -Add [place] for oral pain medication -Pathology results pending -Increase activity -Educated patient to use incentive spirometer -DVT prophylaxis subcu heparin and SCDs -GI prophylaxis Protonix Physician Sheet Metal Supervisor note has been reviewed by physician. Signing provider agrees with the documented findings, assessment, and plan of care. Objective - Vital Signs Vital signs: Vital Signs Temp 98.8 F 03/06/21 07:37 Pulse 74 03/06/21 07:37 Resp 16 03/06/21 07:37 BP 146/79 03/06/21 07:37 Pulse Ox 94 L 03/06/21 07:37 Intake & Output 03/05/21 03/06/21 03/06/21 18:59 06:59 18:59 Intake Total 1200 480 Output Total 3100 900 Balance -1900 -420 Weight 168.736 kg Intake: Oral 1200 480 Output: Gastric Drainage 2400 900 Urine 700 Stool 0 Other: Voiding Method Indwelling Catheter - Labs CBC & Chem 7: 03/06/21 06:03 03/06/21 06:03 Labs: Abnormal Lab Results - Last 24 Hours (Table) 03/04/21 03/06/21 03/06/21 Range/Units 10:02 06:03 06:03 WBC 17.28 H (4.50-10.00) X 10*3/uL Hgb 12.7 L (13.0-17.0) g/dL MCH 25.5 L (27.0-32.0) pg MCHC 28.6 L (32.0-37.0) g/dL RDW 16.0 H (11.5-14.5) % Immature Gran # 0.16 H (0.00-0.04) X 10*3/uL Neutrophils # 12.93 H (1.80-7.70) X 10*3/uL Monocytes # 2.19 H (0.20-1.00) X 10*3/uL Carbon Dioxide 28.8 H (20.0-27.5) mmol/L BUN/Creatinine Ratio 10.33 L (12.00-20.00) Ratio Glucose 142 H (70-110) mg/dL Calcium 8.6 L (8.7-10.3) mg/dL Crossmatch See Detail
[2021-03-06] MEDS ORDERED: IPRATROPIUM-ALBUTEROL 3 ML NEB INHALATION PRN (13:06)
--- NOTE | 2021-03-06 13:42 | XR ---
EXAMINATION TYPE: XR chest 1V portable DATE OF EXAM: 03/06/2021 COMPARISON: 03/03/2021 HISTORY: Shortness of breath TECHNIQUE: Single frontal view of the chest is obtained. FINDINGS: Patchy bilateral infiltrates are stable. Heart size stable. Limited inspiration. No pneumo thorax. IMPRESSION: Patchy bilateral infiltrates.
[2021-03-06] MEDS: D5-0.45% NACL WITH KCL 20MEQ/L 1,000 ML IV SCH (16:36)
[2021-03-06] MEDS: ENOXAPARIN 60 MG/0.6 ML SYRINGE SQ SCH (18:00)
[2021-03-06] MEDS: DEXTROSE 5%-0.45% NACL 1,000 ML IV SCH (19:24)
--- NOTE | 2021-03-06 20:26 | P.CONS ---
History of Present Illness - Reason for Consult Consult date: 03/06/21 Colon Mass Requesting physician: Tory Santos - Chief Complaint Abdominal Pain and COnstipation - History of Present Illness Mr. Story presented to [facility] ER with complaints of progressively worsening abdominal pain over the past 6 weeks, but more significant the past few days. He states he came in for further evaluation when he noticed he had the urge to have a BM, however could not pass stool for 2-3 days. He has known history of morbid obesity and diverticulitid. He admits to greater than 50lb weight loss in past 6 months, however states he has been intentional about losing weight. Review of Systems All systems: negative Constitutional: Reports as per HPI Past Medical History Past Medical History: Hyperlipidemia, Hypertension, Pneumonia, Thyroid Disorder, Vascular Disorder Additional Past Medical History / Comment(s): Diverticulitis, aortic aneurysm 4.5 cm, covid positive 02/17/21 asymptomatic per pt, NIDDM type II, chronic low back pain/R shoulder pain and bilateral knee pain, hypothyroid History of Any Multi-Drug Resistant Organisms: None Reported Past Surgical History: Hernia Repair, Tonsillectomy Additional Past Surgical History / Comment(s): Colonoscopy 2019 at [facility], umbilical hernia, R hand cut injury with surgical repair. Additional Past Anesthesia/Blood Transfusion Reaction / Comm: PT HAS HX OF BEING A DIFFICULT INTUBATION. Smoking Status: Never smoker - Past Family History Mother Family Medical History: Cancer Additional Family Medical History / Comment(s): Mother of cervical cancer with mets at the age of 66 yrs. Father Family Medical History: Myocardial Infarction (MN) Additional Family Medical History / Comment(s): Father of a MN at the age of 69 yrs. Medications and Allergies Home Medications Medication Instructions Recorded Confirmed Type Levothyroxine Sodium [Synthroid] 125 mcg PO DAILY 01/26/21 03/03/21 History Lisinopril-Hctz 20-12.5 mg 1 tab PO DAILY 01/26/21 03/03/21 History [Zestoretic 20-12.5] Simvastatin [Zocor] 20 mg PO DAILY 01/26/21 03/03/21 History Venlafaxine HCl ER [Effexor Xr] 150 mg PO DAILY 01/26/21 03/03/21 History metFORMIN HCL 500 mg PO BID 01/26/21 03/03/21 History Ascorbic Acid [Vitamin C] 1,000 mg PO DAILY 03/03/21 03/03/21 History Cholecalciferol [Vitamin D3 (25 50 mcg PO DAILY 03/03/21 03/03/21 History Mcg = 1000 Iu)] Zinc 50 mg PO DAILY 03/03/21 03/03/21 History Allergies Allergy/AdvReac Type Severity Reaction Status Date / Time No Known Allergies Allergy Verified 03/03/21 08:14 Physical Exam Vitals: Vital Signs Temp Pulse Resp BP Pulse Ox 03/06/21 07:37 98.8 F 74 16 146/79 94 L 03/06/21 02:16 98.7 F 80 156/80 96 03/05/21 19:55 98.0 F 80 153/64 92 L 03/05/21 19:51 80 19 Intake and Output 03/05/21 03/06/21 03/06/21 22:59 06:59 14:59 Intake Total 1200 480 Output Total 700 900 Balance 500 -420 Intake: Oral 1200 480 Output: Gastric Drainage 900 Urine 700 Stool 0 Other: Voiding Method Indwelling Catheter Weight 168.736 kg - Constitutional General appearance: cooperative, morbidly obese - EENT Eyes: EOMI ENT: NA/AT - Neck Neck: normal ROM - Respiratory Respiratory: bilateral: CTA - Cardiovascular Rhythm: regular Heart sounds: normal: S1, S2 - Gastrointestinal right lower ostomy, no stool, small amount of gas noted and stoma pink General gastrointestinal: normal bowel sounds, soft - Integumentary Integumentary: pale - Neurologic Neurologic: CNII-XII intact - Musculoskeletal Musculoskeletal: generalized weakness, strength equal bilaterally - Psychiatric anxious Psychiatric: A&O x's 3, appropriate affect, intact judgment & insight Results CBC & Chem 7: 03/06/21 06:03 03/06/21 06:03 Labs: Abnormal Lab Results - Last 24 Hours (Table) 03/04/21 03/06/21 03/06/21 Range/Units 10:02 06:03 06:03 WBC 17.28 H (4.50-10.00) X 10*3/uL Hgb 12.7 L (13.0-17.0) g/dL MCH 25.5 L (27.0-32.0) pg MCHC 28.6 L (32.0-37.0) g/dL RDW 16.0 H (11.5-14.5) % Immature Gran # 0.16 H (0.00-0.04) X 10*3/uL Neutrophils # 12.93 H (1.80-7.70) X 10*3/uL Monocytes # 2.19 H (0.20-1.00) X 10*3/uL Carbon Dioxide 28.8 H (20.0-27.5) mmol/L BUN/Creatinine Ratio 10.33 L (12.00-20.00) Ratio Glucose 142 H (70-110) mg/dL Calcium 8.6 L (8.7-10.3) mg/dL Crossmatch See Detail CT scan - abdomen: report reviewed CT scan - chest: report reviewed CT scan - pelvis: report reviewed Assessment and Plan (1) Colonic mass Current Visit: Yes Status: Acute Code(s): K63.89 - OTHER SPECIFIED DISEASES OF INTESTINE SNOMED Code(s): 375930186 (2) Hepatomegaly Current Visit: Yes Status: Acute Code(s): R16.0 - HEPATOMEGALY, NOT ELSEWHERE CLASSIFIED SNOMED Code(s): 83521596 (3) Bowel obstruction Current Visit: Yes Status: Acute Code(s): K56.609 - UNSP INTESTNL OBST, UNSP TO PARTIAL VERSUS COMPLETE OBST SNOMED Code(s): 86401552 Plan: He is status post Left Colectomy with tumor resection on 03/04/2021. Pathology is still pending. This is highly suspicious for underlying malignancy, likely primary colon cancer. We discussed that in the case this is malignant, chemotherapy will be recommended given the presentation of obstruction due to the mass on arrival. He had many questions regarding this and all were answered to the best of our ability without pathology resulted. PLan is to await confirmatory pathology and await healing post operatively. If colon adenocarcinoma is confirmed then will plan for adjuvant chemotherapy in approx 4-6 weeks. We will see him in the office in approx 3-4 weeks after PET scan and Mediport placement as preparation for finalized treatment plan. Physician Attest: Suresh parks completed the full history and physical and agree with above dictation, dictated as scribe.
[2021-03-06] MEDS: LORazepam 2 MG/ML INJ IV PRN (20:44)
[2021-03-06] MEDS: IPRATROPIUM-ALBUTEROL 3 ML NEB INHALATION SCH (21:11)
--- NOTE | 2021-03-07 00:51 | P.PN ---
Subjective Progress Note Date: 03/06/21 This is a 60-year-old male who was recently admitted under surgical services and is being closely monitored. Patient underwent CTA yesterday for elevated d- dimer of 5.58 and CTA showed no evidence of any central pulmonary embolism with some patchy atelectasis at the lung bases and midlung laguna with no suspicious pulmonary mass and an aneurysm of the ascending aorta that is approximately 5 cm with no dissection noted. There is no filling defects noted of the pulmonary arteries. Patient is being emergently brought to the operating room right now per surgery for emergent services regarding bowel obstruction. Will await surgical report. 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 Patient continues with NG tube and is currently ice chips. Patient is drinking excessive amounts of water and discussed with the patient about slowly following surgical recommendations status post a major surgery as such. Patient is extremely anxious as he was told about a tumor that was removed and concerned if it is cancer. We'll consult oncology to discuss with the patient. She denies any suicidal thoughts or thoughts of wanting to harm himself or others but patient does report feeling overall anxious and overwhelmed about this tumor. Patient continues to have pain in the abdominal area and surgical dressing is currently dry and intact. Patient continues with indwelling Arroyo catheter which will be removed as patient has been getting up and getting to the chair. Potassium was found to be elevated today and discontinuing IV fluids that contained potassium in it. Will repeat labs. 03/06/2021 Patient is seen and evaluated this morning with surgery following closely. Patient is post-op day 2. Patient continues with NG tube which is ordered to be removed today and patient to start clear liquids. Patient is evaluated sitting up in the chair with lower extremities elevated. Patient maintained on 4L via NC and normally does not wear 02 in the outpatient setting. Wean FI02 as tolerated. Will order chest xray and decrease IV fluids. Encouraged incentive spirometer and use at least 10 times per hour while awake. PT/OT for evaluation. Patient continued on IV zosyn. Labs: WBC is 17.28, hemoglobin is 12.7, platelets are 426, sodium is 137, potassium 5.1, BUN 9.3, creatinine 0.9, calcium 8.6 Review of systems: Constitutional: No reports of fatigue, fever, or chills Cardiovascular: No reports of chest pain or palpitations Respiratory: No reports of shortness of breath or cough GI: No reports of nausea, vomiting, or diarrhea, reports abdominal discomfort and tenderness : No reports of dysuria or retention Neurovascular: No reports of weakness or numbness All medications have been reviewed Active Medications Hydrocodone Bitart/Acetaminophen (Hydrocodone/Apap 5-325mg 1 Each Tab) 1 each PO Q4HR PRN PRN Reason: Pain Albuterol/Ipratropium (Ipratropium-Albuterol 3 Ml Neb) 3 ml INHALATION RT-TID PRN PRN Reason: Shortness Of Breath Or Wheezing Albuterol/Ipratropium (Ipratropium-Albuterol 3 Ml Neb) 3 ml INHALATION RT-TID [facility] Last Admin: 03/06/21 21:11 Dose: 3 ml Documented by: Alvimopan (Alvimopan 12 Mg Capsule) 12 mg PO BID [facility] Stop: 03/11/21 21:01 Last Admin: 03/06/21 20:45 Dose: 12 mg Documented by: Benzocaine/Menthol (Benzocaine/Menthol Lozeng 1 Each Lozenge) 1 each MUCOUS MEM Q1HR PRN PRN Reason: Sore Throat Last Admin: 03/05/21 22:21 Dose: 1 each Documented by: Enoxaparin Sodium (Enoxaparin 60 Mg/0.6 Ml Syringe) 60 mg SQ DAILY [facility] Last Admin: 03/06/21 18:00 Dose: 60 mg Documented by: Lisinopril/HCTZ (Lisinopril-Hctz 20-12.5 Mg 1 Each Tab) 1 each PO DAILY [facility] Last Admin: 03/06/21 09:13 Dose: 1 each Documented by: Hydralazine HCl (Hydralazine Hcl 20 Mg/Ml 1 Ml Vial) 10 mg IVP Q4HR PRN PRN Reason: Blood Pressure - High Hydromorphone HCl (Hydromorphone 1 Mg/Ml 1 Ml Syringe) 1 mg IVP Q3HR PRN PRN Reason: Severe Pain Last Admin: 03/06/21 10:28 Dose: 1 mg Documented by: Piperacillin Sod/Tazobactam (Sod 3.375 gm/ Sodium Chloride) 100 mls @ 25 mls/hr IVPB Q8HR [facility] Last Admin: 03/06/21 18:00 Dose: 25 mls/hr Documented by: Dextrose/Sodium Chloride (Dextrose 5%-1/2ns Iv Soln) 1,000 mls @ 75 mls/hr IV .[id number] [facility] Last Admin: 03/06/21 19:24 Dose: Not Given Documented by: Ketorolac Tromethamine (Ketorolac 30 Mg/Ml 1 Ml Vial) 15 mg IVP Q6HR [facility] Stop: 03/07/21 12:01 Last Admin: 03/06/21 18:00 Dose: 15 mg Documented by: Levothyroxine Sodium (Levothyroxine 125 Mcg Tab) 125 mcg PO DAILY@0630 [facility] Last Admin: 03/06/21 06:28 Dose: 125 mcg Documented by: Lidocaine HCl (Lidocaine 1% (10mg/Ml) For Iv Start) 0.1 ml INTRADERMA PER PROTOCOL PRN PRN Reason: IV Start Lorazepam (Lorazepam 2 Mg/Ml Inj) 0.5 mg IV Q6HR PRN PRN Reason: Anxiety Last Admin: 03/06/21 20:44 Dose: 0.5 mg Documented by: Metoclopramide HCl (Metoclopramide 5 Mg/Ml 2 Ml Vial) 10 mg IVP Q6HR PRN PRN Reason: Nausea and Vomiting Morphine Sulfate (Morphine Sulfate 4 Mg/Ml Syringe) 4 mg IV Q4HR PRN PRN Reason: Severe Pain Last Admin: 03/05/21 00:01 Dose: 4 mg Documented by: Naloxone HCl (Naloxone 0.4 Mg/Ml 1 Ml Vial) 0.2 mg IV Q2M PRN PRN Reason: Opioid Reversal Ondansetron HCl (Ondansetron 4 Mg/2 Ml Vial) 4 mg IVP Q8HR PRN PRN Reason: Nausea And Vomiting Last Admin: 03/03/21 07:29 Dose: 4 mg Documented by: Pantoprazole Sodium (Pantoprazole 40 Mg/10 Ml Vial) 40 mg IVP BID [facility] Last Admin: 03/06/21 20:43 Dose: 40 mg Documented by: Venlafaxine HCl (Venlafaxine Hcl Er 150 Mg Cap) 150 mg PO DAILY [facility] Last Admin: 03/06/21 09:07 Dose: 150 mg Documented by: Physical Exam: Gen: This is a 60-year-old male who is awake, alert and oriented 3, well- developed, well-nourished. Morbidly obese Temp is 98.8 F, pulse is 74, respirations are 16, blood pressure is 146/79, oxygen saturation is 94% on 3 L nasal cannula HEENT: Head is atraumatic, normocephalic. Pupils equal, round. Sclerae is anicteric. NECK: Supple. No JVD. No lymphadenopathy. No thyromegaly. LUNGS: Diminished breath sounds bilaterally with no wheezing or rhonchi noted. No intercostal retractions. HEART: S1, S2 are muffled ABDOMEN: Soft. Obese. Bowel sounds are present. No masses. No tenderness. surgical dressing is dry and intact. Ostomy noted with no gas or stool as of yet EXTREMITIES: No pedal edema. No calf tenderness. NEUROLOGICAL: Patient is awake, alert and oriented x3. Cranial nerves 2 through 12 are grossly intact. 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 Pain management per surgical services. Patient is currently clear liquids and ice chips continued NG tube. NG tube is being discontinued today. Continue to advance diet slowly as tolerated per surgical recommendations. No reports of gas or bowel movement and bowel sounds are sluggish. Encouraged incentive spirometer use and instructed the patient to keep using at least 10 times every hour while awake. Patient denies any chest pain, shortness of breath, and currently maintained on 4 L via nasal cannula and discussed with nursing staff about weaning FiO2 as tolerated. Will order chest xray and decrease IV fluids. Will monitor closely and repeat labs. Will continue to follow along with surgery d uring hospitalization. Oncology consulted and awaiting pathology. Due to multiple complex medical issues, prognosis is guarded. Further recommendations to follow based on the clinical course of the patient. Objective - Vital Signs Vital signs: Vital Signs Temp 98.8 F 03/06/21 07:37 Pulse 74 03/06/21 07:37 Resp 16 03/06/21 07:37 BP 146/79 03/06/21 07:37 Pulse Ox 94 L 03/06/21 07:37 Intake & Output 03/05/21 03/06/21 03/06/21 18:59 06:59 18:59 Intake Total 1200 480 Output Total 3100 900 Balance -1900 -420 Intake: Oral 1200 480 Output: Gastric Drainage 2400 900 Urine 700 Stool 0 Other: Voiding Method Indwelling Catheter - Labs CBC & Chem 7: 03/06/21 06:03 03/06/21 06:03 Labs: Abnormal Lab Results - Last 24 Hours (Table) 03/04/21 03/05/21 03/05/21 Range/Units 10:02 06:03 06:03 WBC 15.10 H (4.50-10.00) X 10*3/uL RBC 5.84 H (4.40-5.60) X 10*6/uL Hct 51.3 H (39.6-50.0) % MCH 25.2 L (27.0-32.0) pg MCHC 28.7 L (32.0-37.0) g/dL RDW 15.9 H (11.5-14.5) % Plt Count 444 H (140-440) X 10*3/uL Neutrophils # (Manual) 12.99 H (2.00-8.90) X 10*3/uL Eosinophils # (Manual) 0 L (0.04-0.35) X 10*3/uL Carbon Dioxide 28.9 H (20.0-27.5) mmol/L BUN/Creatinine Ratio 11.20 L (12.00-20.00) Ratio Glucose 162 H (70-110) mg/dL Calcium 8.5 L (8.7-10.3) mg/dL Total Protein 5.7 L (6.2-8.2) g/dL Albumin 3.3 L (3.8-4.9) g/dL Albumin/Globulin Ratio 1.38 L (1.60-3.17) g/dL Crossmatch See Detail
[2021-03-07] MEDS: HYDROcodone/APAP 5-325MG 1 EACH TAB PO PRN ×3 (00:59→22:42)
[2021-03-07] MEDS: PIPERACILLIN-TAZOBACTAM 3.375 GM in SODIUM CHLORIDE 0.9% 100 ML IVPB SCH ×3 (03:07→16:21)
[2021-03-07] MEDS: KETOROLAC 30 MG/ML 1 ML VIAL IVP SCH ×3 (03:07→12:06)
[2021-03-07] MEDS: LEVOTHYROXINE 125 MCG TAB PO SCH (06:16)
[2021-03-07] MEDS: DEXTROSE 5%-0.45% NACL 1,000 ML IV SCH ×2 (07:54→17:17)
[2021-03-07] MEDS: VENLAFAXINE HCL ER 150 MG CAP PO SCH (08:32)
[2021-03-07] MEDS: ALVIMOPAN 12 MG CAPSULE PO SCH ×2 (08:32→21:23)
[2021-03-07] MEDS: ENOXAPARIN 60 MG/0.6 ML SYRINGE SQ SCH (08:32)
[2021-03-07] MEDS: LISINOPRIL-HCTZ 20-12.5 MG 1 EACH TAB PO SCH (08:32)
[2021-03-07] MEDS: IPRATROPIUM-ALBUTEROL 3 ML NEB INHALATION SCH ×3 (09:14→21:19)
[2021-03-07] MEDS: PANTOPRAZOLE 40 MG/10 ML VIAL IVP SCH ×2 (12:06→21:23)
--- NOTE | 2021-03-07 14:14 | P.PN ---
Subjective Progress Note Date: 03/07/21 CHIEF COMPLAINT: Colon cancer HISTORY OF PRESENT ILLNESS: The patient is a 60-year-old male s/p splenectomy and partial colectomy for colon cancer. He is sitting up in the chair resting comfortably. No current complaints. He is ambulating. He reports stool from rectum, not from ostomy. ROS: No reports of nausea and vomiting. No fevers or chills. No new chest pain. No productive sputum. Morbid obesity, BMI 60.0 PHYSICAL EXAM: VITAL SIGNS: Reviewed CONSTITUTIONAL: Well developed and in no acute distress. EYES: Conjuctivae without sclera icterus. Extraocular movements grossly intact. HEAD, EARS, NOSE, THROAT: Moist buccal mucosa. Head is atraumatic, normocephalic. Hears conversational speech. No nasal drainage. RESPIRATORY: Non-labored respirations and equal bilateral excursions. CARDIOVASCULAR: Palpable 2+ radial pulses. ABDOMEN: Dressing intact. Ostomy without stool. MUSCULOSKELETAL: No gross deformity of the lower extremities noted. No clubbing. No cyanosis. SKIN: Good skin turgor. Well perfused. NEUROLOGIC: Cranial nerves II through XII grossly intact. No focal or l ateralizing signs. PSYCH: Appropriate affect. Alert and oriented to person, place and time. CLINICAL LABS: Reviewed. WBC elevated 15,000 to 17,000+. PATHOLOGY: Invasive moderately differentiated adenocarcinoma. 10/08+ lymph nodes. [id number]. ASSESSMENT: 1. Colon cancer stage III 2. Morbid obesity due to excess calories, BMI 60.0 3. Status post splenectomy PLAN: 1. Oncology following for new colon cancer diagnosis 2. Ambulation 3. PT/OT 4. Await ostomy function. 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 Current Visit: Yes Status: Acute Code(s): C18.5 - MALIGNANT NEOPLASM OF SPLENIC FLEXURE; C77.2 - SECONDARY AND UNSP MALIGNANT NEOPLASM OF INTRA-ABD NODES SNOMED Code(s): 61579416 (2) Stage III carcinoma of colon Current Visit: Yes Status: Acute Code(s): C18.9 - MALIGNANT NEOPLASM OF COLON, UNSPECIFIED SNOMED Code(s): 396433771 (3) Morbid obesity due to excess calories Current Visit: Yes Status: Acute Code(s): E66.01 - MORBID (SEVERE) OBESITY DUE TO EXCESS CALORIES SNOMED Code(s): 554280420 (4) BMI 60.0-69.9, adult Current Visit: Yes Status: Acute Code(s): Z68.44 - BODY MASS INDEX [BMI] 60.0-69.9, ADULT SNOMED Code(s): 846438924 (5) H/O splenectomy Current Visit: Yes Status: Acute Code(s): Z90.81 - ACQUIRED ABSENCE OF SPLEEN SNOMED Code(s): 936848282 (6) Bowel obstruction Current Visit: Yes Status: Acute Code(s): K56.609 - UNSP INTESTNL OBST, UNSP TO PARTIAL VERSUS COMPLETE OBST SNOMED Code(s): 68245942 (7) Colonic mass Current Visit: Yes Status: Acute Code(s): K63.89 - OTHER SPECIFIED DISEASES OF INTESTINE SNOMED Code(s): 804453966 (8) Hepatomegaly Current Visit: Yes Status: Acute Code(s): R16.0 - HEPATOMEGALY, NOT ELSEWHERE CLASSIFIED SNOMED Code(s): 25574079
--- NOTE | 2021-03-07 23:26 | P.PN ---
Subjective Progress Note Date: 03/07/21 This is a 60-year-old male who was recently admitted under surgical services and is being closely monitored. Patient underwent CTA yesterday for elevated d- dimer of 5.58 and CTA showed no evidence of any central pulmonary embolism with some patchy atelectasis at the lung bases and midlung laguna with no suspicious pulmonary mass and an aneurysm of the ascending aorta that is approximately 5 cm with no dissection noted. There is no filling defects noted of the pulmonary arteries. Patient is being emergently brought to the operating room right now per surgery for emergent services regarding bowel obstruction. Will await surgical report. 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 Patient continues with NG tube and is currently ice chips. Patient is drinking excessive amounts of water and discussed with the patient about slowly following surgical recommendations status post a major surgery as such. Patient is extremely anxious as he was told about a tumor that was removed and concerned if it is cancer. We'll consult oncology to discuss with the patient. She denies any suicidal thoughts or thoughts of wanting to harm himself or others but patient does report feeling overall anxious and overwhelmed about this tumor. Patient continues to have pain in the abdominal area and surgical dressing is currently dry and intact. Patient continues with indwelling Arroyo catheter which will be removed as patient has been getting up and getting to the chair. Potassium was found to be elevated today and discontinuing IV fluids that contained potassium in it. Will repeat labs. 03/06/2021 Patient is seen and evaluated this morning with surgery following closely. Patient is post-op day 2. Patient continues with NG tube which is ordered to be removed today and patient to start clear liquids. Patient is evaluated sitting up in the chair with lower extremities elevated. Patient maintained on 4L via NC and normally does not wear 02 in the outpatient setting. Wean FI02 as tolerated. Will order chest xray and decrease IV fluids. Encouraged incentive spirometer and use at least 10 times per hour while awake. PT/OT for evaluation. Patient continued on IV zosyn. 03/07/2021 Patient is seen this morning and is being closely monitored. Surgical services following closely as patient is postop day 3 and continues on clear liquids NG tube has been removed. Repeat labs have been ordered and pending at this time. Oncology was also consulted and evaluated the patient and will follow. pathology report reveals adenocarcinoma. Patient underwent chest x-ray yesterday which shows patchy bilateral infiltrates that are stable. Patient does have incentive spirometer at the bedside and encouraged using at least 10 times every hour while awake. Increase activity as tolerated. Patient's IV fluids have been decreased as patient is on D5 half-normal saline at 75 ML per hour. Patient was requiring oxygen yesterday and currently maintaining 93% on room air. Patient is afebrile in no reports of chest pain or palpitations. Patient denies shortness of breath. Indwelling Arroyo catheter has also been removed and patient is voiding. Patient has been receiving diabetes education for new ostomy. Patient reports to gas and some output in the ostomy. Labs: WBC is 17.28, hgb is 12.7, platelets are 426, sodium is 137, potassium is 5.1, cr is 0.9, calcium is 8.6 Review of systems: Constitutional: No reports of fatigue, fever, or chills Cardiovascular: No reports of chest pain or palpitations Respiratory: No reports of shortness of breath or cough GI: No reports of nausea, vomiting, or diarrhea, reports abdominal discomfort and tenderness, reports gas noted in the ostomy : No reports of dysuria or retention Neurovascular: No reports of weakness or numbness All medications have been reviewed Active Medications Hydrocodone Bitart/Acetaminophen (Hydrocodone/Apap 5-325mg 1 Each Tab) 1 each PO Q4HR PRN PRN Reason: Pain Last Admin: 03/07/21 00:59 Dose: 1 each Documented by: Albuterol/Ipratropium (Ipratropium-Albuterol 3 Ml Neb) 3 ml INHALATION RT-TID PRN PRN Reason: Shortness Of Breath Or Wheezing Albuterol/Ipratropium (Ipratropium-Albuterol 3 Ml Neb) 3 ml INHALATION RT-TID [facility] Last Admin: 03/07/21 09:14 Dose: 3 ml Documented by: Alvimopan (Alvimopan 12 Mg Capsule) 12 mg PO BID [facility] Stop: 03/11/21 21:01 Last Admin: 03/07/21 08:32 Dose: 12 mg Documented by: Benzocaine/Menthol (Benzocaine/Menthol Lozeng 1 Each Lozenge) 1 each MUCOUS MEM Q1HR PRN PRN Reason: Sore Throat Last Admin: 03/05/21 22:21 Dose: 1 each Documented by: Enoxaparin Sodium (Enoxaparin 60 Mg/0.6 Ml Syringe) 60 mg SQ DAILY [facility] Last Admin: 03/07/21 08:32 Dose: 60 mg Documented by: Lisinopril/HCTZ (Lisinopril-Hctz 20-12.5 Mg 1 Each Tab) 1 each PO DAILY [facility] Last Admin: 03/07/21 08:32 Dose: 1 each Documented by: Hydralazine HCl (Hydralazine Hcl 20 Mg/Ml 1 Ml Vial) 10 mg IVP Q4HR PRN PRN Reason: Blood Pressure - High Hydromorphone HCl (Hydromorphone 1 Mg/Ml 1 Ml Syringe) 1 mg IVP Q3HR PRN PRN Reason: Severe Pain Last Admin: 03/06/21 10:28 Dose: 1 mg Documented by: Piperacillin Sod/Tazobactam (Sod 3.375 gm/ Sodium Chloride) 100 mls @ 25 mls/hr IVPB Q8HR [facility] Last Admin: 03/07/21 08:31 Dose: 25 mls/hr Documented by: Dextrose/Sodium Chloride (Dextrose 5%-1/2ns Iv Soln) 1,000 mls @ 75 mls/hr IV .[id number] [facility] Last Admin: 03/07/21 07:54 Dose: 75 mls/hr Documented by: Ketorolac Tromethamine (Ketorolac 30 Mg/Ml 1 Ml Vial) 15 mg IVP Q6HR [facility] Stop: 03/07/21 12:01 Last Admin: 03/07/21 07:54 Dose: 15 mg Documented by: Levothyroxine Sodium (Levothyroxine 125 Mcg Tab) 125 mcg PO DAILY@0630 [facility] Last Admin: 03/07/21 06:16 Dose: 125 mcg Documented by: Lidocaine HCl (Lidocaine 1% (10mg/Ml) For Iv Start) 0.1 ml INTRADERMA PER PROTOCOL PRN PRN Reason: IV Start Lorazepam (Lorazepam 2 Mg/Ml Inj) 0.5 mg IV Q6HR PRN PRN Reason: Anxiety Last Admin: 03/06/21 20:44 Dose: 0.5 mg Documented by: Metoclopramide HCl (Metoclopramide 5 Mg/Ml 2 Ml Vial) 10 mg IVP Q6HR PRN PRN Reason: Nausea and Vomiting Morphine Sulfate (Morphine Sulfate 4 Mg/Ml Syringe) 4 mg IV Q4HR PRN PRN Reason: Severe Pain Last Admin: 03/05/21 00:01 Dose: 4 mg Documented by: Naloxone HCl (Naloxone 0.4 Mg/Ml 1 Ml Vial) 0.2 mg IV Q2M PRN PRN Reason: Opioid Reversal Ondansetron HCl (Ondansetron 4 Mg/2 Ml Vial) 4 mg IVP Q8HR PRN PRN Reason: Nausea And Vomiting Last Admin: 03/03/21 07:29 Dose: 4 mg Documented by: Pantoprazole Sodium (Pantoprazole 40 Mg/10 Ml Vial) 40 mg IVP BID [facility] Last Admin: 03/06/21 20:43 Dose: 40 mg Documented by: Venlafaxine HCl (Venlafaxine Hcl Er 150 Mg Cap) 150 mg PO DAILY [facility] Last Admin: 03/07/21 08:32 Dose: 150 mg Documented by: Physical Exam: Gen: This is a 60-year-old male who is awake, alert and oriented 3, well- developed, well-nourished. Morbidly obese Temp is 97.5 F, pulse is 61, respirations are 20, blood pressure is 147/87, oxygen saturation is 93% on room air HEENT: Head is atraumatic, normocephalic. Pupils equal, round. Sclerae is anicteric. NECK: Supple. No JVD. No lymphadenopathy. No thyromegaly. LUNGS: Diminished breath sounds bilaterally with no wheezing or rhonchi noted. No intercostal retractions. HEART: S1, S2 are muffled ABDOMEN: Soft. Obese. Bowel sounds are present. No masses. No tenderness. surgical dressing is dry and intact. Ostomy noted with gas EXTREMITIES: No pedal edema. No calf tenderness. NEUROLOGICAL: Patient is awake, alert and oriented x3. Cranial nerves 2 through 12 are grossly intact. 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 Pain management per surgical services. Patient is currently clear liquids and tolerated with gas noted and some output starting in the ostomy. Continue to advance diet slowly as tolerated per surgical recommendations. Encouraged incentive spirometer use and instructed the patient to keep using at least 10 times every hour while awake. Patient denies any chest pain, shortness of breath, and currently maintained on room air. Will monitor closely and repeat labs. Will continue to follow along with surgery during hospitalization. Oncology following and will initiate close outpatient follow up with chemo and further testing once stabilized from this surgery. Recommend low potassium diet. Patient continues on IV antibiotics and WBC continues to be elevated. Due to multiple complex medical issues, prognosis is guarded. Further recommendations to follow based on the clinical course of the patient. Objective - Vital Signs Vital signs: Vital Signs Temp 97.5 F L 03/07/21 07:50 Pulse 71 03/07/21 09:28 Resp 16 03/07/21 09:28 BP 147/87 03/07/21 07:50 Pulse Ox 93 L 03/07/21 07:50 Intake & Output 03/06/21 03/07/21 03/07/21 18:59 06:59 18:59 Output Total 800 700 Balance -800 -700 Weight 168.736 kg Output: Urine 800 700 Straight 800 Stool 0 Other: # Voids 2 - Labs CBC & Chem 7: 03/06/21 06:03 03/06/21 06:03 Labs: Abnormal Lab Results - Last 24 Hours (Table) 03/06/21 Range/Units 06:03 Carbon Dioxide 28.8 H (20.0-27.5) mmol/L BUN/Creatinine Ratio 10.33 L (12.00-20.00) Ratio Glucose 142 H (70-110) mg/dL Calcium 8.6 L (8.7-10.3) mg/dL
[2021-03-08] MEDS: PIPERACILLIN-TAZOBACTAM 3.375 GM in SODIUM CHLORIDE 0.9% 100 ML IVPB SCH ×4 (00:43→23:32)
[2021-03-08] MEDS: LEVOTHYROXINE 125 MCG TAB PO SCH (05:42)
[2021-03-08] MEDS: HYDROcodone/APAP 5-325MG 1 EACH TAB PO PRN ×2 (06:13→16:59)
[2021-03-08 06:14] LABS: Basophils # (A) 0.1 k/uL (0-0.2); Basophils % (A) 1 %; Eosinophils # (A) 0.8 k/uL (0-0.7); Eosinophils % (A) 6 %; HCT 46.1 % (39.0-53.0); HGB 13.8 gm/dL (13.0-17.5); Hypochromasia Marked; Lymphocytes # (A) 1.9 k/uL (1.0-4.8); Lymphocytes % (A) 15 %; MCH 26.8 pg (25.0-35.0); MCHC 29.9 g/dL (31.0-37.0); MCV 89.8 fL (80.0-100.0); Mean Platelet Volume 8.4; Monocytes # (A) 1.1 k/uL (0-1.0); Monocytes % (A) 9 %; Neutrophils # (A) 8.6 k/uL (1.3-7.7); Neutrophils % (A) 68 %; Platelet Count 574 k/uL (150-450); RBC 5.14 m/uL (4.30-5.90); RDW 15.3 % (11.5-15.5); WBC 12.7 k/uL (3.8-10.6)
[2021-03-08 06:24] LABS: African American GFR (CKD) >90 (>60 ml/min/1.73 sqM); Anion Gap 8 mmol/L; Blood Urea Nitrogen 6 mg/dL (9-20); Calcium 9.2 mg/dL (8.4-10.2); Carbon Dioxide 33 mmol/L (22-30); Chloride 95 mmol/L (98-107); Glucose 139 mg/dL (74-99); Non-African American GFR(CKD) >90 (>60 ml/min/1.73 sqM); Potassium 4.6 mmol/L (3.5-5.1); Sodium 136 mmol/L (137-145)
[2021-03-08] MEDS: IPRATROPIUM-ALBUTEROL 3 ML NEB INHALATION SCH ×3 (08:50→21:20)
[2021-03-08] MEDS: VENLAFAXINE HCL ER 150 MG CAP PO SCH (08:55)
[2021-03-08] MEDS: ENOXAPARIN 60 MG/0.6 ML SYRINGE SQ SCH (08:55)
[2021-03-08] MEDS: ALVIMOPAN 12 MG CAPSULE PO SCH ×2 (08:55→20:00)
[2021-03-08] MEDS: LISINOPRIL-HCTZ 20-12.5 MG 1 EACH TAB PO SCH (08:55)
[2021-03-08] MEDS: PANTOPRAZOLE 40 MG/10 ML VIAL IVP SCH ×2 (11:00→20:00)
[2021-03-08] MEDS: DEXTROSE 5%-0.45% NACL 1,000 ML IV SCH (13:27)
--- NOTE | 2021-03-08 15:34 | P.PN ---
Subjective Progress Note Date: 03/08/21 CHIEF COMPLAINT: Colon cancer HISTORY OF PRESENT ILLNESS: The patient is a 60-year-old male s/p splenectomy and partial colectomy for colon cancer. He is sitting up in the chair. His ostomy has been emptied for stool since yesterday and today. He feels well. He has many questions. ROS: No reports of nausea and vomiting. No fevers or chills. No new chest pain. No productive sputum. Morbid obesity, BMI 60.0 PHYSICAL EXAM: VITAL SIGNS: Reviewed CONSTITUTIONAL: Well developed and in no acute distress. EYES: Conjuctivae without sclera icterus. Extraocular movements grossly intact. HEAD, EARS, NOSE, THROAT: Moist buccal mucosa. Head is atraumatic, normocephalic. Hears conversational speech. No nasal drainage. RESPIRATORY: Non-labored respirations and equal bilateral excursions. CARDIOVASCULAR: Palpable 2+ radial pulses. ABDOMEN: Dressing intact. Ostomy stool and flatus present. Protuberant. MUSCULOSKELETAL: No gross deformity of the lower extremities noted. No clubbing. No cyanosis. SKIN: Good skin turgor. Well perfused. NEUROLOGIC: Cranial nerves II through XII grossly intact. No focal or lateralizing signs. PSYCH: Appropriate affect. Alert and oriented to person, place and time. CLINICAL LABS: Reviewed. WBC elevated 17,000+ now down to ove 12,000 PATHOLOGY: Invasive moderately differentiated adenocarcinoma. 10/08+ lymph nodes. [id number]. ASSESSMENT: 1. Colon cancer stage III 2. Morbid obesity due to excess calories, BMI 60.0 3. Status post splenectomy PLAN: 1. Advance diet to low fiber 2. Additional ostomy education pending. 3. Diagnosis and management of colon cancer deferred to his oncologist for questions. Objective - Vital Signs Vital signs: Vital Signs Temp 98.8 F 03/08/21 14:09 Pulse 82 03/08/21 14:09 Resp 20 03/08/21 14:09 BP 147/71 03/08/21 14:09 Pulse Ox 94 L 03/08/21 14:09 Intake & Output 03/07/21 03/08/21 03/08/21 18:59 06:59 18:59 Intake Total 1500 Output Total 0 Balance 1500 Intake: Intake, IV Titration 1000 Amount Dextrose 5%-0.45% NaCl 1, 900 000 ml @ 75 mls/hr IV . [id number] [facility] Rx#:[id number] Piperacillin-Tazobactam 3 100 .375 gm In Sodium Chloride 0.9% 100 ml @ 25 mls/hr IVPB Q8HR [facility] Rx# :[id number] Oral 500 Output: Stool 0 Other: # Voids 2 # Bowel Movements 0 - Labs CBC & Chem 7: 03/08/21 05:55 03/08/21 05:55 Labs: Abnormal Lab Results - Last 24 Hours (Table) 03/08/21 03/08/21 Range/Units 05:55 05:55 WBC 12.7 H (3.8-10.6) k/uL MCHC 29.9 L (31.0-37.0) g/dL Plt Count 574 H (150-450) k/uL Neutrophils # 8.6 H (1.3-7.7) k/uL Monocytes # 1.1 H (0-1.0) k/uL Eosinophils # 0.8 H (0-0.7) k/uL Sodium 136 L (137-145) mmol/L Chloride 95 L (98-107) mmol/L Carbon Dioxide 33 H (22-30) mmol/L BUN 6 L (9-20) mg/dL Glucose 139 H (74-99) mg/dL Assessment and Plan (1) 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 Current Visit: Yes Status: Acute Code(s): C18.5 - MALIGNANT NEOPLASM OF SPLENIC FLEXURE; C77.2 - SECONDARY AND UNSP MALIGNANT NEOPLASM OF INTRA-ABD NODES SNOMED Code(s): 98103704 (2) Stage III carcinoma of colon Current Visit: Yes Status: Acute Code(s): C18.9 - MALIGNANT NEOPLASM OF COLON, UNSPECIFIED SNOMED Code(s): 770408900 (3) Morbid obesity due to excess calories Current Visit: Yes Status: Acute Code(s): E66.01 - MORBID (SEVERE) OBESITY DUE TO EXCESS CALORIES SNOMED Code(s): 913659880 (4) BMI 60.0-69.9, adult Current Visit: Yes Status: Acute Code(s): Z68.44 - BODY MASS INDEX [BMI] 60.0-69.9, ADULT SNOMED Code(s): 405888500 (5) H/O splenectomy Current Visit: Yes Status: Acute Code(s): Z90.81 - ACQUIRED ABSENCE OF SPLEEN SNOMED Code(s): 384797705 (6) Bowel obstruction Current Visit: Yes Status: Acute Code(s): K56.609 - UNSP INTESTNL OBST, UNSP TO PARTIAL VERSUS COMPLETE OBST SNOMED Code(s): 51058427 (7) Colonic mass Current Visit: Yes Status: Acute Code(s): K63.89 - OTHER SPECIFIED DISEASES OF INTESTINE SNOMED Code(s): 313521218 (8) Hepatomegaly Current Visit: Yes Status: Acute Code(s): R16.0 - HEPATOMEGALY, NOT ELSEWHERE CLASSIFIED SNOMED Code(s): 72456630
[2021-03-09] MEDS: HYDROcodone/APAP 5-325MG 1 EACH TAB PO PRN (02:02)
--- NOTE | 2021-03-09 03:56 | P.PN ---
Subjective Progress Note Date: 03/08/21 This is a 60-year-old male who was recently admitted under surgical services and is being closely monitored. Patient underwent CTA yesterday for elevated d- dimer of 5.58 and CTA showed no evidence of any central pulmonary embolism with some patchy atelectasis at the lung bases and midlung laguna with no suspicious pulmonary mass and an aneurysm of the ascending aorta that is approximately 5 cm with no dissection noted. There is no filling defects noted of the pulmonary arteries. Patient is being emergently brought to the operating room right now per surgery for emergent services regarding bowel obstruction. Will await surgical report. 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 Patient continues with NG tube and is currently ice chips. Patient is drinking excessive amounts of water and discussed with the patient about slowly following surgical recommendations status post a major surgery as such. Patient is extremely anxious as he was told about a tumor that was removed and concerned if it is cancer. We'll consult oncology to discuss with the patient. She denies any suicidal thoughts or thoughts of wanting to harm himself or others but patient does report feeling overall anxious and overwhelmed about this tumor. Patient continues to have pain in the abdominal area and surgical dressing is currently dry and intact. Patient continues with indwelling Arroyo catheter which will be removed as patient has been getting up and getting to the chair. Potassium was found to be elevated today and discontinuing IV fluids that contained potassium in it. Will repeat labs. 03/06/2021 Patient is seen and evaluated this morning with surgery following closely. Patient is post-op day 2. Patient continues with NG tube which is ordered to be removed today and patient to start clear liquids. Patient is evaluated sitting up in the chair with lower extremities elevated. Patient maintained on 4L via NC and normally does not wear 02 in the outpatient setting. Wean FI02 as tolerated. Will order chest xray and decrease IV fluids. Encouraged incentive spirometer and use at least 10 times per hour while awake. PT/OT for evaluation. Patient continued on IV zosyn. 03/07/2021 Patient is seen this morning and is being closely monitored. Surgical services following closely as patient is postop day 3 and continues on clear liquids NG tube has been removed. Repeat labs have been ordered and pending at this time. Oncology was also consulted and evaluated the patient and will follow. pathology report reveals adenocarcinoma. Patient underwent chest x-ray yesterday which shows patchy bilateral infiltrates that are stable. Patient does have incentive spirometer at the bedside and encouraged using at least 10 times every hour while awake. Increase activity as tolerated. Patient's IV fluids have been decreased as patient is on D5 half-normal saline at 75 ML per hour. Patient was requiring oxygen yesterday and currently maintaining 93% on room air. Patient is afebrile in no reports of chest pain or palpitations. Patient denies shortness of breath. Indwelling Arroyo catheter has also been removed and patient is voiding. Patient has been receiving diabetes education for new ostomy. Patient reports to gas and some output in the ostomy. 03/08/2021 Patient is evaluated this morning and continues to sit up in the chair most of the day. Patient states he has been up and walking frequently. Patient is having stool and gas in the ostomy and tolerating diet. Patient having some abdominal discomfort and describes it as a feeling as if he has been physically working his abdomen out. WBC trending down and will continue antibiotics for now. Will repeat am labs. Patient denies any shortness of breath or chest pains. Patient is afebrile Labs: WBC is 12.7, hgb is 13.8, platelets are 574, sodium is 136, potassium is 4.6, cr is 0.73, calcium is 9.2 Review of systems: Constitutional: No reports of fatigue, fever, or chills Cardiovascular: No reports of chest pain or palpitations Respiratory: No reports of shortness of breath or cough GI: No reports of nausea, vomiting, or diarrhea, reports abdominal discomfort and tenderness, reports gas and stool noted in the ostomy : No reports of dysuria or retention Neurovascular: No reports of weakness or numbness All medications have been reviewed Active Medications Hydrocodone Bitart/Acetaminophen (Hydrocodone/Apap 5-325mg 1 Each Tab) 1 each PO Q4HR PRN PRN Reason: Pain Last Admin: 03/08/21 06:13 Dose: 1 each Documented by: Albuterol/Ipratropium (Ipratropium-Albuterol 3 Ml Neb) 3 ml INHALATION RT-TID PRN PRN Reason: Shortness Of Breath Or Wheezing Albuterol/Ipratropium (Ipratropium-Albuterol 3 Ml Neb) 3 ml INHALATION RT-TID [facility] Last Admin: 03/08/21 13:06 Dose: 3 ml Documented by: Alvimopan (Alvimopan 12 Mg Capsule) 12 mg PO BID [facility] Stop: 03/11/21 21:01 Last Admin: 03/08/21 08:55 Dose: 12 mg Documented by: Benzocaine/Menthol (Benzocaine/Menthol Lozeng 1 Each Lozenge) 1 each MUCOUS MEM Q1HR PRN PRN Reason: Sore Throat Last Admin: 03/05/21 22:21 Dose: 1 each Documented by: Enoxaparin Sodium (Enoxaparin 60 Mg/0.6 Ml Syringe) 60 mg SQ DAILY [facility] Last Admin: 03/08/21 08:55 Dose: 60 mg Documented by: Lisinopril/HCTZ (Lisinopril-Hctz 20-12.5 Mg 1 Each Tab) 1 each PO DAILY [facility] Last Admin: 03/08/21 08:55 Dose: 1 each Documented by: Hydralazine HCl (Hydralazine Hcl 20 Mg/Ml 1 Ml Vial) 10 mg IVP Q4HR PRN PRN Reason: Blood Pressure - High Hydromorphone HCl (Hydromorphone 1 Mg/Ml 1 Ml Syringe) 1 mg IVP Q3HR PRN PRN Reason: Severe Pain Last Admin: 03/06/21 10:28 Dose: 1 mg Documented by: Piperacillin Sod/Tazobactam (Sod 3.375 gm/ Sodium Chloride) 100 mls @ 25 mls/hr IVPB Q8HR [facility] Last Admin: 03/08/21 08:55 Dose: 25 mls/hr Documented by: Dextrose/Sodium Chloride (Dextrose 5%-1/2ns Iv Soln) 1,000 mls @ 75 mls/hr IV .[id number] [facility] Last Admin: 03/08/21 13:27 Dose: Not Given Documented by: Levothyroxine Sodium (Levothyroxine 125 Mcg Tab) 125 mcg PO DAILY@0630 [facility] Last Admin: 03/08/21 05:42 Dose: 125 mcg Documented by: Lidocaine HCl (Lidocaine 1% (10mg/Ml) For Iv Start) 0.1 ml INTRADERMA PER PROTOCOL PRN PRN Reason: IV Start Lorazepam (Lorazepam 2 Mg/Ml Inj) 0.5 mg IV Q6HR PRN PRN Reason: Anxiety Last Admin: 03/06/21 20:44 Dose: 0.5 mg Documented by: Metoclopramide HCl (Metoclopramide 5 Mg/Ml 2 Ml Vial) 10 mg IVP Q6HR PRN PRN Reason: Nausea and Vomiting Morphine Sulfate (Morphine Sulfate 4 Mg/Ml Syringe) 4 mg IV Q4HR PRN PRN Reason: Severe Pain Last Admin: 03/05/21 00:01 Dose: 4 mg Documented by: Naloxone HCl (Naloxone 0.4 Mg/Ml 1 Ml Vial) 0.2 mg IV Q2M PRN PRN Reason: Opioid Reversal Ondansetron HCl (Ondansetron 4 Mg/2 Ml Vial) 4 mg IVP Q8HR PRN PRN Reason: Nausea And Vomiting Last Admin: 03/03/21 07:29 Dose: 4 mg Documented by: Pantoprazole Sodium (Pantoprazole 40 Mg/10 Ml Vial) 40 mg IVP BID [facility] Last Admin: 03/08/21 11:00 Dose: Not Given Documented by: Venlafaxine HCl (Venlafaxine Hcl Er 150 Mg Cap) 150 mg PO DAILY [facility] Last Admin: 03/08/21 08:55 Dose: 150 mg Documented by: Physical Exam: Gen: This is a 60-year-old male who is awake, alert and oriented 3, well- developed, well-nourished. Morbidly obese Temp is 98.7 F, pulse is 68, respirations are 18, blood pressure is 141/73, oxygen saturation is 92% on room air HEENT: Head is atraumatic, normocephalic. Pupils equal, round. Sclerae is anicteric. NECK: Supple. No JVD. No lymphadenopathy. No thyromegaly. LUNGS: Diminished breath sounds bilaterally with no wheezing or rhonchi noted. No intercostal retractions. HEART: S1, S2 are muffled ABDOMEN: Soft. Obese. Bowel sounds are present. No masses. No tenderness. surgical dressing is dry and intact. Ostomy noted with gas and stool EXTREMITIES: No pedal edema. No calf tenderness. NEUROLOGICAL: Patient is awake, alert and oriented x3. Cranial nerves 2 through 12 are grossly intact. 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 Pain management per surgical services. Patient is currently clear liquids and tolerated with gas noted and some stool in the ostomy. Continue to advance diet slowly as tolerated per surgical recommendations. Encouraged incentive spirometer use and instructed the patient to keep using at least 10 times every hour while awake. Patient denies any chest pain, shortness of breath, and currently maintained on room air. Will monitor closely and repeat labs. Will continue to follow along with surgery during hospitalization. Oncology following and will initiate close outpatient follow up with chemo and further testing once stabilized from this surgery. Recommend low potassium diet. Patient continues on IV antibiotics and WBC continues to be elevated although trending down. Patient is afebrile. Due to multiple complex medical issues, prognosis is guarded. Further recommendations to follow based on the clinical course of the patient. Objective - Vital Signs Vital signs: Vital Signs Temp 98.7 F 03/08/21 07:46 Pulse 70 03/08/21 08:59 Resp 18 03/08/21 08:59 BP 141/73 03/08/21 07:46 Pulse Ox 92 L 03/08/21 07:46 Intake & Output 03/07/21 03/08/21 03/08/21 18:59 06:59 18:59 Intake Total 1500 Output Total 0 Balance 1500 Intake: Intake, IV Titration 1000 Amount Dextrose 5%-0.45% NaCl 1, 900 000 ml @ 75 mls/hr IV . [id number] [facility] Rx#:[id number] Piperacillin-Tazobactam 3 100 .375 gm In Sodium Chloride 0.9% 100 ml @ 25 mls/hr IVPB Q8HR [facility] Rx# :[id number] Oral 500 Output: Stool 0 Other: # Voids 2 # Bowel Movements 0 - Labs CBC & Chem 7: 03/08/21 05:55 03/08/21 05:55 Labs: Abnormal Lab Results - Last 24 Hours (Table) 03/08/21 03/08/21 Range/Units 05:55 05:55 WBC 12.7 H (3.8-10.6) k/uL MCHC 29.9 L (31.0-37.0) g/dL Plt Count 574 H (150-450) k/uL Neutrophils # 8.6 H (1.3-7.7) k/uL Monocytes # 1.1 H (0-1.0) k/uL Eosinophils # 0.8 H (0-0.7) k/uL Sodium 136 L (137-145) mmol/L Chloride 95 L (98-107) mmol/L Carbon Dioxide 33 H (22-30) mmol/L BUN 6 L (9-20) mg/dL Glucose 139 H (74-99) mg/dL
[2021-03-09] MEDS: DEXTROSE 5%-0.45% NACL 1,000 ML IV SCH (06:35)
[2021-03-09] MEDS: LEVOTHYROXINE 125 MCG TAB PO SCH (06:35)
[2021-03-09 07:22] LABS: Basophils # (A) 0.1 k/uL (0-0.2); Basophils % (A) 1 %; Eosinophils # (A) 0.7 k/uL (0-0.7); Eosinophils % (A) 6 %; HCT 44.3 % (39.0-53.0); HGB 13.1 gm/dL (13.0-17.5); Hypochromasia Marked; Lymphocytes # (A) 2.3 k/uL (1.0-4.8); Lymphocytes % (A) 19 %; MCH 26.2 pg (25.0-35.0); MCHC 29.5 g/dL (31.0-37.0); MCV 88.7 fL (80.0-100.0); Mean Platelet Volume 8.4; Monocytes # (A) 1.3 k/uL (0-1.0); Monocytes % (A) 10 %; Neutrophils # (A) 7.7 k/uL (1.3-7.7); Neutrophils % (A) 63 %; Platelet Count 612 k/uL (150-450); WBC 12.3 k/uL (3.8-10.6)
[2021-03-09 07:27] LABS: African American GFR (CKD) >90 (>60 ml/min/1.73 sqM); Anion Gap 6 mmol/L; Blood Urea Nitrogen 5 mg/dL (9-20); Calcium 9.2 mg/dL (8.4-10.2); Carbon Dioxide 34 mmol/L (22-30); Chloride 96 mmol/L (98-107); Glucose 122 mg/dL (74-99); Magnesium 1.9 mg/dL (1.6-2.3); Non-African American GFR(CKD) >90 (>60 ml/min/1.73 sqM); Potassium 4.8 mmol/L (3.5-5.1); Sodium 136 mmol/L (137-145)
[2021-03-09] MEDS: PIPERACILLIN-TAZOBACTAM 3.375 GM in SODIUM CHLORIDE 0.9% 100 ML IVPB SCH (08:20)
[2021-03-09] MEDS: ENOXAPARIN 60 MG/0.6 ML SYRINGE SQ SCH (08:20)
[2021-03-09] MEDS: ALVIMOPAN 12 MG CAPSULE PO SCH (08:21)
[2021-03-09] MEDS: LISINOPRIL-HCTZ 20-12.5 MG 1 EACH TAB PO SCH (08:21)
[2021-03-09] MEDS: VENLAFAXINE HCL ER 150 MG CAP PO SCH (08:21)
[2021-03-09] MEDS: PANTOPRAZOLE 40 MG/10 ML VIAL IVP SCH (08:21)
[2021-03-09] MEDS: IPRATROPIUM-ALBUTEROL 3 ML NEB INHALATION SCH ×2 (09:09→12:28)
[2021-03-09] MEDS ORDERED: AMMONIUM LACTATE 12% LOTION 225 GM BTL TOPICAL SCH (10:30)
--- NOTE | 2021-03-09 14:20 | P.DS ---
Providers Date of admission: 03/03/21 01:39 Expected date of discharge: 03/09/21 Attending physician: Ruslan Caldwell Consults: 03/04/21 10:36 Consult Physician Routine Consulting Provider: Roberth Padgett Consult Reason/Comments: medical management Do you want consulting provider notified?: Already Contacted 03/05/21 17:21 Consult Physician Routine Consulting Provider: Jose Martin Escamilla Consult Reason/Comments: Tumor of the colon, recent surgery Do you want consulting provider notified?: Yes Primary care physician: Leopoldo Price Hospital Course: Discharge diagnosis 1. Adenocarcinoma of the colon. 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 Leukocytosis secondary to patient's splenectomy 3. Morbid obesity Hospital course This is a 60-year-old male with a history of morbid obesity, diverticulitis and umbilical hernia repair. Patient presents to the hospital with complaints of abdominal pain across the middle of his abdomen and into the left side. Patient reports that he has been dealing with abdominal pain for about 6 weeks. Over the last 3 days he has had increasing pain with nausea and not having any bowel movements for about 2 days. He reports feeling more bloated and has had decreased and flatulence. He reports his last colonoscopy was 2 years ago that did reveal diverticulosis. Patient denies any fever, chills or sweats. Computed tomography scan evidence had shown evidence of a large bowel obstruction. Patient is status post left colectomy with transverse colon colostomy, takedown of splenic flexure, splenectomy and omentectomy for colon obstruction due to carcinoma of the colon at splenic flexure invading spleen. Pathology positive for adenocarcinoma. Patient evaluated by oncology. Patient's pain is controlled. He is tolerating diet. He is up and ambulating. His ostomy is functioning. He is afebrile. He is stable for discharge. Patient will require postop splenectomy vaccinations. Patient will follow-up with his PCP or the health Department to receive those vaccinations. Patient will need to follow-up with oncology. Patient's incision site clean, dry and intact. Please refer to chart for any further details. Physician [employer] note has been reviewed by physician. Signing provider agrees with the documented findings, assessment, and plan of care. Patient Condition at Discharge: Stable Plan - Discharge Summary Discharge Rx Participant: No New Discharge Prescriptions: New HYDROcodone/APAP 5-325MG [Butler 5-325] 1 tab PO Q6HR PRN 3 Days #12 tab PRN Reason: Pain Ammonium Lactate Lotion [Lac-Hydrin 12% Lotion] 1 applic TOPICAL BID #60 oz Continue metFORMIN HCL 500 mg PO BID Venlafaxine HCl ER [Effexor XR] 150 mg PO DAILY Simvastatin [Zocor] 20 mg PO DAILY Lisinopril-Hctz 20-12.5 mg [Zestoretic 20-12.5] 1 tab PO DAILY Levothyroxine Sodium [Synthroid] 125 mcg PO DAILY Cholecalciferol [Vitamin D3 (25 Mcg = 1000 Iu)] 50 mcg PO DAILY Ascorbic Acid [Vitamin C] 1,000 mg PO DAILY Zinc 50 mg PO DAILY Discharge Medication List Levothyroxine Sodium [Synthroid] 125 mcg PO DAILY 01/26/21 [History] Lisinopril-Hctz 20-12.5 mg [Zestoretic 20-12.5] 1 tab PO DAILY 01/26/21 [History] Simvastatin [Zocor] 20 mg PO DAILY 01/26/21 [History] Venlafaxine HCl ER [Effexor XR] 150 mg PO DAILY 01/26/21 [History] metFORMIN HCL 500 mg PO BID 01/26/21 [History] Ascorbic Acid [Vitamin C] 1,000 mg PO DAILY 03/03/21 [History] Cholecalciferol [Vitamin D3 (25 Mcg = 1000 Iu)] 50 mcg PO DAILY 03/03/21 [History] Zinc 50 mg PO DAILY 03/03/21 [History] Ammonium Lactate Lotion [Lac-Hydrin 12% Lotion] 1 applic TOPICAL BID #60 oz 03/09/21 [Rx] HYDROcodone/APAP 5-325MG [Butler 5-325] 1 tab PO Q6HR PRN 3 Days #12 tab 03/09/21 [Rx] Follow up Appointment(s)/Referral(s): Jose Martin Escamilla MD [STAFF PHYSICIAN] - 1 Week Leopoldo Price MD [Primary Care Provider] - 1-2 days [facility], [NON-STAFF] - Ruslan Caldwell MD [STAFF PHYSICIAN] - 1 Week Patient Instructions/Handouts: Colostomy Care (GEN) Activity/Diet/Wound Care/Special Instructions: Recommendations for colostomy care supplies for home: Last pouching system change: 03.09.2021 Mr Story will have the following supplies from the hospital for home Convate one piece cut to fit pouching system with filter #[id number] (three) No sting prep pads (12) Ostomy powder Lydia seals (2) Mr Story can shower every day with the ostomy pouch on and utilize a blow dryer to dry the pouching system once out of the shower Mr Story can utilize the specific ostomy deodrant once a day in the ostomy pouch - This will be coming to Mr Story home in 5 -7 days Mr Story is to change the entire pouching system every 3-5 days Mr Story is to empty the pouch when it is 1/2 to 1/3 full in the bathroom facing the toilet Mr Story will be receiving free sample ostomy supplies from [facility] 5-7 days after discharge date to his home. Home care please assist Mr Story to obtain disposable pouches in 2-3 weeks after discharge No driving while taking Butler No lifting over 10 pounds You may shower. No soaking or tub baths for 2 weeks Very light activity until you are reevaluated at your follow up appointment with your surgeon Patient to follow-up with PCP and/or health Department for post splenectomy vaccines Discharge Disposition: HOME WITH HOME HEALTH SERVICES
[2021-03-09 14:40] VITALS: BP 138/71; PULSE 81; RESP 18; TEMP 98.7
--- NOTE | 2021-03-10 00:34 | P.PN ---
Subjective Progress Note Date: 03/09/21 This is a 60-year-old male who was recently admitted under surgical services and is being closely monitored. Patient underwent CTA yesterday for elevated d- dimer of 5.58 and CTA showed no evidence of any central pulmonary embolism with some patchy atelectasis at the lung bases and midlung laguna with no suspicious pulmonary mass and an aneurysm of the ascending aorta that is approximately 5 cm with no dissection noted. There is no filling defects noted of the pulmonary arteries. Patient is being emergently brought to the operating room right now per surgery for emergent services regarding bowel obstruction. Will await surgical report. 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 Patient continues with NG tube and is currently ice chips. Patient is drinking excessive amounts of water and discussed with the patient about slowly following surgical recommendations status post a major surgery as such. Patient is extremely anxious as he was told about a tumor that was removed and concerned if it is cancer. We'll consult oncology to discuss with the patient. She denies any suicidal thoughts or thoughts of wanting to harm himself or others but patient does report feeling overall anxious and overwhelmed about this tumor. Patient continues to have pain in the abdominal area and surgical dressing is currently dry and intact. Patient continues with indwelling Arroyo catheter which will be removed as patient has been getting up and getting to the chair. Potassium was found to be elevated today and discontinuing IV fluids that contained potassium in it. Will repeat labs. 03/06/2021 Patient is seen and evaluated this morning with surgery following closely. Patient is post-op day 2. Patient continues with NG tube which is ordered to be removed today and patient to start clear liquids. Patient is evaluated sitting up in the chair with lower extremities elevated. Patient maintained on 4L via NC and normally does not wear 02 in the outpatient setting. Wean FI02 as tolerated. Will order chest xray and decrease IV fluids. Encouraged incentive spirometer and use at least 10 times per hour while awake. PT/OT for evaluation. Patient continued on IV zosyn. 03/07/2021 Patient is seen this morning and is being closely monitored. Surgical services following closely as patient is postop day 3 and continues on clear liquids NG tube has been removed. Repeat labs have been ordered and pending at this time. Oncology was also consulted and evaluated the patient and will follow. pathology report reveals adenocarcinoma. Patient underwent chest x-ray yesterday which shows patchy bilateral infiltrates that are stable. Patient does have incentive spirometer at the bedside and encouraged using at least 10 times every hour while awake. Increase activity as tolerated. Patient's IV fluids have been decreased as patient is on D5 half-normal saline at 75 ML per hour. Patient was requiring oxygen yesterday and currently maintaining 93% on room air. Patient is afebrile in no reports of chest pain or palpitations. Patient denies shortness of breath. Indwelling Arroyo catheter has also been removed and patient is voiding. Patient has been receiving diabetes education for new ostomy. Patient reports to gas and some output in the ostomy. 03/08/2021 Patient is evaluated this morning and continues to sit up in the chair most of the day. Patient states he has been up and walking frequently. Patient is having stool and gas in the ostomy and tolerating diet. Patient having some abdominal discomfort and describes it as a feeling as if he has been physically working his abdomen out. WBC trending down and will continue antibiotics for now. Will repeat am labs. Patient denies any shortness of breath or chest pains. Patient is afebrile 03/09/2021 Patient is seen this morning and doing well. Ostomy noted with stool and tolerating advanced diet. Patient having some abdominal discomfort mostly with excessive exertion. Encouraged activity although in moderation. Patient to follow up outpatient with oncology about further treatment plan. WBC trending down and patient remains afebrile. No signs of infection as incision site is clean dry and intact. On empiric antibiotics and will discontinue on discharge. Review of systems: Constitutional: No reports of fatigue, fever, or chills Cardiovascular: No reports of chest pain or palpitations Respiratory: No reports of shortness of breath or cough GI: No reports of nausea, vomiting, or diarrhea, reports abdominal discomfort and tenderness, reports gas and stool noted in the ostomy : No reports of dysuria or retention Neurovascular: No reports of weakness or numbness All medications have been reviewed Physical Exam: Gen: This is a 60-year-old male who is awake, alert and oriented 3, well- developed, well-nourished. Morbidly obese HEENT: Head is atraumatic, normocephalic. Pupils equal, round. Sclerae is anicteric. NECK: Supple. No JVD. No lymphadenopathy. No thyromegaly. LUNGS: Diminished breath sounds bilaterally with no wheezing or rhonchi noted. No intercostal retractions. HEART: S1, S2 are muffled ABDOMEN: Soft. Obese. Bowel sounds are present. No masses. No tenderness. surgical dressing is dry and intact. Ostomy noted with gas and stool EXTREMITIES: No pedal edema. No calf tenderness. NEUROLOGICAL: Patient is awake, alert and oriented x3. Cranial nerves 2 through 12 are grossly intact. 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 Pain management per surgical services. Patient is currently tolerating diet with gas noted and some stool in the ostomy. Continue to advance diet slowly as tolerated per surgical recommendations. Encouraged incentive spirometer use and instructed the patient to keep using at least 10 times every hour while awake. Patient denies any chest pain, shortness of breath, and currently maintained on room air. Will monitor closely and continue to follow along with surgery during hospitalization. Patient is being discharged today. Oncology following and will initiate close outpatient follow up with chemo and further testing once s tabilized from this surgery. Recommend low potassium diet. Thank you for this consultation. Objective - Vital Signs Vital signs: Vital Signs Temp 98.2 F 03/09/21 07:32 Pulse 69 03/09/21 07:32 Resp 16 03/09/21 07:32 BP 136/76 03/09/21 07:32 Pulse Ox 93 L 03/09/21 07:32 Intake & Output 03/08/21 03/09/21 03/09/21 18:59 06:59 18:59 Intake Total 1600 Output Total 0 200 Balance 0 1400 Intake: Intake, IV Titration 1000 Amount Dextrose 5%-0.45% NaCl 1, 900 000 ml @ 75 mls/hr IV . [id number] [facility] Rx#:[id number] Piperacillin-Tazobactam 3 100 .375 gm In Sodium Chloride 0.9% 100 ml @ 25 mls/hr IVPB Q8HR [facility] Rx# :[id number] Oral 600 Output: Stool 0 200 Other: Voiding Method Indwelling Catheter # Voids 4 - Labs CBC & Chem 7: 03/09/21 06:24 03/09/21 06:24 Labs: Abnormal Lab Results - Last 24 Hours (Table) 03/09/21 03/09/21 Range/Units 06:24 06:24 WBC 12.3 H (3.8-10.6) k/uL MCHC 29.5 L (31.0-37.0) g/dL Plt Count 612 H (150-450) k/uL Monocytes # 1.3 H (0-1.0) k/uL Sodium 136 L (137-145) mmol/L Chloride 96 L (98-107) mmol/L Carbon Dioxide 34 H (22-30) mmol/L BUN 5 L (9-20) mg/dL Glucose 122 H (74-99) mg/dL
== END 2021-03-09 16:40 | disposition home health service (06) | DRG 330 ==
LOC: EC 23:18 → 5NMEDONC 03-03 01:39 → 4SSUR 03-03 16:54
PROVIDERS: ADMIT Surgery; ATTEND Surgery
PROC: 0D1L0Z4 Bypass Transverse Colon to Cutaneous, Open Approach (ICD-10-PCS; 2021-03-04)
PROC: 0DBU0ZZ Excision of Omentum, Open Approach (ICD-10-PCS; 2021-03-04)
PROC: 07TP0ZZ Resection of Spleen, Open Approach (ICD-10-PCS; 2021-03-04)
PROC: 0DTG0ZZ Resection of Left Large Intestine, Open Approach (ICD-10-PCS; principal; 2021-03-04 13:00)
DX: C18.5 Malignant neoplasm of splenic flexure (principal); C77.2 Secondary and unspecified malignant neoplasm of intra-abdominal lymph nodes; C78.5 Secondary malignant neoplasm of large intestine and rectum; E87.1 Hypo-osmolality and hyponatremia; K56.699 Other intestinal obstruction unspecified as to partial versus complete obstruction; Z68.44 Body mass index [BMI] 60.0-69.9, adult; D72.829 Elevated white blood cell count, unspecified; E03.9 Hypothyroidism, unspecified; E11.9 Type 2 diabetes mellitus without complications; E66.01 Morbid (severe) obesity due to excess calories; E78.5 Hyperlipidemia, unspecified; E87.5 Hyperkalemia; I10 Essential (primary) hypertension; I71.2 Thoracic aortic aneurysm, without rupture; K57.90 Diverticulosis of intestine, part unspecified, without perforation or abscess without bleeding; Z86.16 Personal history of COVID-19; Z86.79 Personal history of other diseases of the circulatory system; Z87.01 Personal history of pneumonia (recurrent); Z85.038 Personal history of other malignant neoplasm of large intestine; Z82.49 Family history of ischemic heart disease and other diseases of the circulatory system; Z79.899 Other long term (current) drug therapy; Z79.890 Hormone replacement therapy; Z79.84 Long term (current) use of oral hypoglycemic drugs
CPT/HCPCS: 36415; 71045; 71275; 74018; 74177; 80048; 80053; 81001; 82150; 83690; 83735; 83880; 85025; 85379; 85610; 85652; 85730; 86140; 86850; 86900; 86901; 86920; 87635; 88305; 88309; 93970; 94640; 96374; 99285

== ENCOUNTER 2021-04-10 06:20 | Day surgery (SDC) | payer BC ==
[2021-04-06 14:13] VITALS: BMI 56.8
[~2021-04-10 06:20] MED LIST: ACETAMINOPHEN TAB 500 MG TAB PO PRN; DEXAMETHASONE SOD PHOSPHATE 4 MG/ML 1 ML VIAL IV ONE; HEPARIN SODIUM,PORCINE/PF 5,000 UNIT/0.5 ML SYRINGE SQ PRN; LACTATED RINGERS 1,000 ML IV SCH; MIDAZOLAM 2 MG/2 ML VIAL IV PRN; ONDANSETRON 4 MG/2 ML VIAL IVP ONE; Pre Op ABX Message 1 EACH MISC MISCELLANE ONE; SCOPOLAMINE 1.5MG/72HR PATCH TRANSDERM ONE
[2021-04-10] MEDS ORDERED: HYDROmorphone 0.5 MG/0.5 ML SYRINGE IVP PRN (07:00)
[2021-04-10 07:02] LABS: Glucose,Whole Blood 131 mg/dL (75-99)
[2021-04-10] MEDS ORDERED: LACTATED RINGERS 1,000 ML IV ONE ×2 (07:07→08:43)
[2021-04-10] MEDS ORDERED: DEXAMETHASONE SOD PHOSPHATE 4 MG/ML 1 ML VIAL IVP ONE (07:07)
[2021-04-10] MEDS ORDERED: ONDANSETRON 4 MG/2 ML VIAL IVP ONE (07:08)
[2021-04-10] MEDS ORDERED: SUCCINYLCHOLINE CHLORIDE VIAL 200 MG/10 ML VIAL IV ONE (07:54)
[2021-04-10] MEDS ORDERED: PROPOFOL 10 MG/ML 20 ML VIAL IV ONE (07:54)
[2021-04-10] MEDS ORDERED: MIDAZOLAM 2 MG/2 ML VIAL ONE (07:54)
[2021-04-10] MEDS ORDERED: LIDOCAINE 1% INJ 10MG/ML (20 ML MDV) ONE (07:54)
[2021-04-10] MEDS ORDERED: fentaNYL (PF) 50 MCG/ML 2 ML AMP ONE (07:54)
[2021-04-10] MEDS ORDERED: ceFAZolin 3 GM in SODIUM CHLORIDE 0.9% 100 ML IVPB ONE (08:00)
[2021-04-10] MEDS ORDERED: BUPIVACAIN-EPI 0.25%-1:200,000 30 ML VIAL SQ ONE (08:40)
[2021-04-10] MEDS ORDERED: HEPARIN SODIUM,PORCINE 100 UNIT/ML 5 ML VIAL IV ONE (08:40)
--- NOTE | 2021-04-10 08:54 | P.GSHP ---
History of Present Illness H&P Date: 04/10/21 Chief Complaint: History of colon cancer This is a 60-year-old male who presents today for Port-A-Cath placement. Patient was previously diagnosed with left colon cancer. Patient will be undergoing chemotherapy. Past Medical History Past Medical History: Cancer, Hyperlipidemia, Hypertension, Pneumonia, Thyroid Disorder, Vascular Disorder Additional Past Medical History / Comment(s): Diverticulitis, aortic aneurysm 4.5 cm, covid positive 02/17/21 asymptomatic per pt received monoclonal antibodies, NIDDM type II, chronic low back pain/R shoulder pain and bilateral knee pain, hypothyroid, colon cancer History of Any Multi-Drug Resistant Organisms: None Reported Past Surgical History: Bowel Resection, Hernia Repair, Tonsillectomy Additional Past Surgical History / Comment(s): Colonoscopy 2019 at [facility], umbilical hernia, R hand cut injury with surgical repair,colostomy, 8 inches of colon removed, spleenectomy, 28 lymph nodes removed Past Anesthesia/Blood Transfusion Reactions: Previous Problems w/ Anesthesia Additional Past Anesthesia/Blood Transfusion Reaction / Comment(s): PT States HX OF BEING A DIFFICULT INTUBATION and woke up during anesthesia during hernia re pair, since has had anesthesia without issue Smoking Status: Never smoker - Past Family History Mother Family Medical History: Cancer Additional Family Medical History / Comment(s): Mother of cervical cancer with mets at the age of 66 yrs. Father Family Medical History: Myocardial Infarction ([place]) Additional Family Medical History / Comment(s): Father of a [place] at the age of 69 yrs. Medications and Allergies Home Medications Medication Instructions Recorded Confirmed Type Levothyroxine Sodium [Synthroid] 125 mcg PO DAILY 01/26/21 04/10/21 History Lisinopril-Hctz 20-12.5 mg 1 tab PO DAILY 01/26/21 04/10/21 History [Zestoretic 20-12.5] Simvastatin [Zocor] 20 mg PO DAILY 01/26/21 04/10/21 History Venlafaxine HCl ER [Effexor XR] 150 mg PO DAILY 01/26/21 04/10/21 History metFORMIN HCL 500 mg PO BID 01/26/21 04/10/21 History Ascorbic Acid [Vitamin C] 1,000 mg PO DAILY 03/03/21 04/10/21 History Cholecalciferol [Vitamin D3 (25 50 mcg PO DAILY 03/03/21 04/10/21 History Mcg = 1000 Iu)] Zinc 50 mg PO DAILY 03/03/21 04/10/21 History Aspirin 325 mg PO DAILY 04/06/21 04/10/21 History Allergies Allergy/AdvReac Type Severity Reaction Status Date / Time No Known Allergies Allergy Verified 04/06/21 13:55 Surgical - Exam Vital Signs Temp Pulse Resp BP Pulse Ox 97.2 F L 88 16 118/63 93 L 04/10/21 07:03 04/10/21 07:03 04/10/21 07:03 04/10/21 07:03 04/10/21 07:03 - General well developed, well nourished, no distress - Eyes PERRL - ENT normal pinna - Neck no masses - Respiratory normal expansion - Cardiovascular Rhythm: regular - Abdomen Colostomy right upper quadrant Abdomen: soft, non tender Results - Labs 04/10/21 06:59 Abnormal Lab Results - Last 24 Hours (Table) 04/10/21 Range/Units 06:52 POC Glucose (mg/dL) 131 H (75-99) mg/dL Diabetes panel 04/10/21 Range/Units 06:59 Potassium 5.1 (3.5-5.1) mmol/L Pituitary panel 04/10/21 Range/Units 06:59 Potassium 5.1 (3.5-5.1) mmol/L Adrenal panel 04/10/21 Range/Units 06:59 Potassium 5.1 (3.5-5.1) mmol/L Assessment and Plan Assessment: History of colon cancer. We'll perform Port-A-Cath insertion.
--- NOTE | 2021-04-10 08:56 | P.OP ---
Date of Procedure: 04/10/21 Preoperative Diagnosis: Colon cancer Postoperative Diagnosis: Colon cancer Procedure(s) Performed: Right subclavian Port-A-Cath Anesthesia: BAKARI MACKENZIE Surgeon: Ruslan Caldwell Pathology: none sent Condition: stable Disposition: PACU Description of Procedure: PROCEDURE: The patient was placed on the operating table in the supine position. She received MAC anesthetic. The [right] chest was prepped and draped in the usual sterile fashion. The skin underneath the right clavicle was anesthetized with 1% Xylocaine and using Seldinger technique, the right subclavian vein was cannulized. The wire was placed through the needle and positioned under fluoroscopy. Next, the needle was removed and the port site was anesthetized with 1% Xylocaine. Skin was incised with #15 blade and port pocket was made using blunt and sharp dissection. Following this the catheter was attached to the sport and the port was flushed. The port was positioned into the pocket site and was secured with 3-0 Vicryl suture. The catheter was then brought out through the wire site and then the dilator sheath was placed over the wire and the dilator and the wire were removed. The catheter was placed through the sheath and the sheath was removed. The port was flushed with hep-lock solution. Skin was closed with interrupted 3-0 Vicryl sutures. Steri-Strips were applied. The patient tolerated the procedure well. The patient was sent to recovery room for chest x-ray after the procedure.
--- NOTE | 2021-04-10 09:00 | FL ---
EXAMINATION TYPE: FL guided central line placement DATE OF EXAM: 04/10/2021 CLINICAL HISTORY: Port-A-Cath insertion TECHNIQUE: Fluoroscopy. COMPARISON: None. FINDINGS: Fluoroscopic guidance was provided during Mediport catheter insertion procedure performed by Dr. Caldwell. A total of 23 seconds of fluoroscopic time was utilized during the procedure and 6 spot images was acquired. Images acquired show advancement of guidewire and subsequent placement of r ight subclavian Mediport catheter with tip in SVC. Overlying endotracheal tube noted. IMPRESSION: As Above.
[2021-04-10 09:24] VITALS: TEMP 98
--- NOTE | 2021-04-10 10:23 | XR ---
EXAMINATION TYPE: XR chest 1V portable DATE OF EXAM: 04/10/2021 COMPARISON: Chest x-ray March 06, 2021 HISTORY: Mediport catheter insertion TECHNIQUE: Single AP portable frontal upright view of the chest is obtained. FINDINGS: Right subclavian Mediport catheter terminates in SVC. No pneumothorax seen after catheter placement. There are persistent low lung volumes and bibasilar opacities. Persistent cardiomegaly. The osseous structures are intact. IMPRESSION: As above.
[2021-04-10 11:22] VITALS: PULSE 86; RESP 16
[2021-04-10 11:23] VITALS: BP 95/54
== END 2021-04-10 11:44 | disposition home or self-care (01) ==
LOC: OR 06:20
PROVIDERS: ATTEND Surgery
DX: C18.9 Malignant neoplasm of colon, unspecified (principal); C18.6 Malignant neoplasm of descending colon; E78.5 Hyperlipidemia, unspecified; I10 Essential (primary) hypertension; Z87.01 Personal history of pneumonia (recurrent); Z87.19 Personal history of other diseases of the digestive system; I71.9 Aortic aneurysm of unspecified site, without rupture; Z86.16 Personal history of COVID-19; E11.9 Type 2 diabetes mellitus without complications; G89.29 Other chronic pain; M54.50 Low back pain, unspecified; M25.511 Pain in right shoulder; M25.562 Pain in left knee; M25.561 Pain in right knee; E03.9 Hypothyroidism, unspecified; Z90.49 Acquired absence of other specified parts of digestive tract; Z93.3 Colostomy status; Z98.890 Other specified postprocedural states; Z90.81 Acquired absence of spleen; Z80.49 Family history of malignant neoplasm of other genital organs; Z82.49 Family history of ischemic heart disease and other diseases of the circulatory system; Z79.84 Long term (current) use of oral hypoglycemic drugs; Z79.82 Long term (current) use of aspirin; Z79.890 Hormone replacement therapy; Z79.899 Other long term (current) drug therapy
CPT/HCPCS: 84132; 77001; 71045; 36561; C1788; J2250; J0330; J1642; J1100; J0690; J2405; J2001; J3010; J2704; J1644

== ENCOUNTER → 2021-10-14 | Outpatient (CLI) | payer BC ==
[2021-10-14 14:56] LABS: Anion Gap 8.8 mmol/L (10.00-18.00); Carbon Dioxide 31.5 mmol/L (20.0-27.5); Potassium 4.7 mmol/L (3.5-5.5)
[2021-10-14 15:00] LABS: Basophils # (A) 0.05 X 10*3/uL (0.00-0.10); Basophils % (A) 0.7 %; Eosinophils # (A) 0.44 X 10*3/uL (0.04-0.35); Eosinophils % (A) 5.9 %; HCT 52.3 % (39.6-50.0); HGB 15.9 g/dL (13.0-17.0); Immature Grans, Automated 0.5 %; Lymphocytes # (A) 2.17 X 10*3/uL (0.90-5.00); MCH 30.7 pg (27.0-32.0); MCHC 30.4 g/dL (32.0-37.0); Mean Platelet Volume 11.7 fL (9.5-12.2); Monocytes # (A) 0.83 X 10*3/uL (0.20-1.00); Monocytes % (A) 11.1 %; NRBC Per 100 WBC 0 /100 WBCS (0.0-0.0); Neutrophils # (A) 3.96 X 10*3/uL (1.80-7.70); Neutrophils % (A) 52.8 %; Platelet Count 372 X 10*3/uL (140-440); RBC 5.18 X 10*6/uL (4.40-5.60); RDW 17.4 % (11.5-14.5); WBC 7.49 X 10*3/uL (4.50-10.00)
== END | disposition home or self-care (01) ==
LOC: LABPAT 08:48
PROVIDERS: ATTEND Surgery
DX: Z01.812 Encounter for preprocedural laboratory examination (principal); C18.9 Malignant neoplasm of colon, unspecified
CPT/HCPCS: 80051; 85025

== ENCOUNTER 2021-10-19 11:13 | Day surgery (SDC) | payer BC ==
[2021-10-15 12:30] VITALS: BMI 59.3
[~2021-10-19 11:13] MED LIST changes: -ACETAMINOPHEN TAB 500 MG TAB PO PRN; -DEXAMETHASONE SOD PHOSPHATE 4 MG/ML 1 ML VIAL IV ONE; -HEPARIN SODIUM,PORCINE/PF 5,000 UNIT/0.5 ML SYRINGE SQ PRN; +LIDOCAINE 1% (10MG/ML) FOR IV START INTRADERMA PRN; -MIDAZOLAM 2 MG/2 ML VIAL IV PRN; -ONDANSETRON 4 MG/2 ML VIAL IVP ONE; -Pre Op ABX Message 1 EACH MISC MISCELLANE ONE; -SCOPOLAMINE 1.5MG/72HR PATCH TRANSDERM ONE
[2021-10-19 11:58] VITALS: TEMP 96
[2021-10-19] MEDS ORDERED: LIDOCAINE 1% (10MG/ML) FOR IV START INTRADERMA ONE (12:10)
[2021-10-19] MEDS ORDERED: LIDOCAINE 2% INJ 20 MG/ML (2 ML VIAL) ONE (12:15)
[2021-10-19] MEDS ORDERED: PROPOFOL 10 MG/ML 20 ML VIAL IV ONE (12:15)
[2021-10-19] MEDS ORDERED: MIDAZOLAM 2 MG/2 ML VIAL ONE (12:15)
--- NOTE | 2021-10-19 12:21 | P.GSHP ---
History of Present Illness H&P Date: 10/19/21 Chief Complaint: History of colon cancer This is a 6-year-old male who presents today for colonoscopy. Patient's previous history of colon cancer with history of left colectomy. Patient presents for colonoscopy. Underwent reversal colostomy tomorrow. Past Medical History Past Medical History: Cancer, Diabetes Mellitus, Hyperlipidemia, Hypertension, Pneumonia, Sleep Apnea/CPAP/BIPAP, Thyroid Disorder, Vascular Disorder Additional Past Medical History / Comment(s): Diverticulitis, aortic aneurysm 4.5 cm, covid 02/17/21 received monoclonal antibodies., NIDDM type II, chronic low back pain/R shoulder pain and bilateral knee pain, hypothyroid, colon cancer with colostomy (02/2021) & chemo tx ., Bring c-pap machine, states blood clot in arm 3 months ago. History of Any Multi-Drug Resistant Organisms: None Reported Past Surgical History: Bowel Resection, Hernia Repair, Tonsillectomy Additional Past Surgical History / Comment(s): Colonoscopy, umbilical hernia, R hand cut injury with surgical repair,colostomy, 8 inches of colon removed (02/2021)., spleenectomy, 28 lymph nodes removed ., port a cath. Past Anesthesia/Blood Transfusion Reactions: Previous Problems w/ Anesthesia Additional Past Anesthesia/Blood Transfusion Reaction / Comment(s): states 2016 hernia repair he was told difficult intubation because he is heavy and has a short neck, he woke up when the anesthesiologist was putting something in his throat that was painful and he broke the velcro wrist strap loose to pull his hand away., States no problems with surgeries after that. Past Psychological History: Anxiety Additional Psychological History / Comment(s): . Smoking Status: Never smoker Past Alcohol Use History: Rare Past Drug Use History: None Reported - Past Family History Mother Family Medical History: Cancer Additional Family Medical History / Comment(s): Mother of cervical cancer with mets at the age of 66 yrs. Father Family Medical History: Myocardial Infarction ([place]) Additional Family Medical History / Comment(s): Father of a [place] at the age of 69 yrs. Medications and Allergies Home Medications Medication Instructions Recorded Confirmed Type Levothyroxine Sodium [Synthroid] 125 mcg PO DAILY 01/26/21 10/19/21 History Lisinopril-Hctz 20-12.5 mg 1 tab PO DAILY 01/26/21 10/19/21 History [Zestoretic 20-12.5] Simvastatin [Zocor] 20 mg PO DAILY 01/26/21 10/19/21 History Venlafaxine HCl ER [Effexor XR] 150 mg PO DAILY 01/26/21 10/19/21 History Aspirin 325 mg PO DAILY 04/06/21 10/16/21 History Apixaban [Eliquis] 5 mg PO BID 10/16/21 10/16/21 History Sildenafil Citrate [Viagra] 100 mg PO DIRECTED PRN 10/16/21 10/19/21 History metFORMIN HCL 500 mg PO BID 10/16/21 10/19/21 History Pseudoephedrine HCl [Sudafed] 60 mg PO DAILY PRN 10/19/21 10/19/21 History Allergies Allergy/AdvReac Type Severity Reaction Status Date / Time No Known Allergies Allergy Verified 10/19/21 11:53 Surgical - Exam Vital Signs Temp Pulse Resp BP Pulse Ox 96 F L 74 18 140/79 91 L 10/19/21 11:56 10/19/21 11:56 10/19/21 11:56 10/19/21 11:56 10/19/21 11:56 - General well developed, well nourished, no distress - Eyes PERRL - ENT normal pinna - Neck no masses - Respiratory normal expansion - Cardiovascular Rhythm: regular - Abdomen Ostomy in left upper quadrant. Abdomen: soft, non tender Assessment and Plan Assessment: Reviews. History of left colon cancer. Patient will undergo colonoscopy day with reversal colostomy tomorrow.
--- NOTE | 2021-10-19 12:36 | P.OP ---
Date of Procedure: 10/19/21 Preoperative Diagnosis: Colon cancer Postoperative Diagnosis: Colon cancer Procedure(s) Performed: Colonoscopy Anesthesia: MAC Surgeon: Ruslan Caldwell Pathology: none sent Condition: stable Disposition: PACU Description of Procedure: Patient's placed on the endoscopy table lateral position. He received IV sedation. Digital rectal exam was performed which revealed a large stool ball in the rectum. The flexible colonoscope was then placed patient anus. There stool ball was visualized. The scope was then placed into the colon and advanced. At approximately 20 cm there appeared to be a staple line of the rectum. The scope was then withdrawn. There is no obvious pathology of the visualize rectum. Scope withdrawn for patient. Patient presents back. The colonoscope was then placed into the colostomy. The colostomy is located in the right upper quadrant. Plus is advanced into the colon. Approximately 25 cm from the colostomy as there was significant fluid in the colon which prevented visualization of the colon. This point scope withdrawn. There is no obvious pathology seen. Scope withdrawn for patient.
[2021-10-19] MEDS ORDERED: NA PHOS,M-B/NA PHOS,DI-BA 133 ML ENEMA RECTAL ONE (12:37)
[2021-10-19 12:54] LABS: Glucose,Whole Blood 125 mg/dL (70-110)
[2021-10-19 13:23] VITALS: BP 134/79; PULSE 71; RESP 15
== END 2021-10-19 14:24 | disposition home or self-care (01) ==
LOC: ORWHC2ENDO 11:13
PROVIDERS: ATTEND Surgery
DX: Z85.038 Personal history of other malignant neoplasm of large intestine (principal); Z93.3 Colostomy status; I10 Essential (primary) hypertension; E11.69 Type 2 diabetes mellitus with other specified complication; E78.5 Hyperlipidemia, unspecified; G47.33 Obstructive sleep apnea (adult) (pediatric); E66.01 Morbid (severe) obesity due to excess calories; Z68.44 Body mass index [BMI] 60.0-69.9, adult; E03.9 Hypothyroidism, unspecified; Z79.890 Hormone replacement therapy; Z79.899 Other long term (current) drug therapy; Z79.82 Long term (current) use of aspirin; Z79.01 Long term (current) use of anticoagulants; Z79.84 Long term (current) use of oral hypoglycemic drugs; Z80.49 Family history of malignant neoplasm of other genital organs; Z82.49 Family history of ischemic heart disease and other diseases of the circulatory system; Z87.19 Personal history of other diseases of the digestive system; I71.9 Aortic aneurysm of unspecified site, without rupture; Z86.16 Personal history of COVID-19; Z90.49 Acquired absence of other specified parts of digestive tract; Z90.81 Acquired absence of spleen
CPT/HCPCS: 44388; J2250; J2704; J2001

== ENCOUNTER 2021-10-20 07:45 | Inpatient (IN) | payer BC ==
[2021-10-16 09:02] VITALS: BMI 59.3
[~2021-10-20 07:45] MED LIST changes: +ACETAMINOPHEN TAB 500 MG TAB PO PRN; +DEXAMETHASONE SOD PHOSPHATE 4 MG/ML 1 ML VIAL IV ONE; +HEPARIN SODIUM,PORCINE/PF 5,000 UNIT/0.5 ML SYRINGE SQ PRN; -LACTATED RINGERS 1,000 ML IV SCH; +MIDAZOLAM 2 MG/2 ML VIAL IV PRN; +ONDANSETRON 4 MG/2 ML VIAL IVP ONE; +ceFAZolin 3 GM in SODIUM CHLORIDE 0.9% 100 ML IVPB PRN; +metroNIDAZOLE-NS PMX 500 MG in SALINE 1 100ML.BAG IVPB PRN
[2021-10-20] MEDS ORDERED: LACTATED RINGERS 1,000 ML IV ONE ×3 (08:39→13:53)
[2021-10-20] MEDS ORDERED: MIDAZOLAM 2 MG/2 ML VIAL IVP ONE (08:44)
[2021-10-20 08:49] LABS: Glucose,Whole Blood 138 mg/dL (70-110)
--- NOTE | 2021-10-20 12:42 | P.GSHP ---
History of Present Illness H&P Date: 10/20/21 Chief Complaint: History of colon cancer This a 6-year-old male who presents today for reversal colostomy. Patient's previous history of left colon cancer at the splenic flexure.. Patient's morbid obese. BMI 61. Patient is aware the risk of surgery is also aware the risk of increased risk with large BMI his BMI 61 Past Medical History Past Medical History: Cancer, Diabetes Mellitus, Hyperlipidemia, Hypertension, Pneumonia, Sleep Apnea/CPAP/BIPAP, Thyroid Disorder, Vascular Disorder Additional Past Medical History / Comment(s): Diverticulitis, aortic aneurysm 4.5 cm, covid 02/17/21 received monoclonal antibodies., NIDDM type II, chronic low back pain/R shoulder pain and bilateral knee pain, hypothyroid, colon cancer with colostomy (02/2021) & chemo tx ., Bring c-pap machine, states blood clot in arm 3 months ago. History of Any Multi-Drug Resistant Organisms: None Reported Past Surgical History: Bowel Resection, Hernia Repair, Tonsillectomy Additional Past Surgical History / Comment(s): Colonoscopy, umbilical hernia, R hand cut injury with surgical repair,colostomy, 8 inches of colon removed (02/2021)., spleenectomy, 28 lymph nodes removed ., port a cath. Past Anesthesia/Blood Transfusion Reactions: Previous Problems w/ Anesthesia Additional Past Anesthesia/Blood Transfusion Reaction / Comment(s): states 2016 hernia repair he was told difficult intubation because he is heavy and has a short neck, he woke up when the anesthesiologist was putting something in his throat that was painful and he broke the velcro wrist strap loose to pull his hand away., States no problems with surgeries after that. Past Psychological History: Anxiety Additional Psychological History / Comment(s): . Smoking Status: Never smoker Past Alcohol Use History: Rare Past Drug Use History: None Reported - Past Family History Mother Family Medical History: Cancer Additional Family Medical History / Comment(s): Mother of cervical cancer with mets at the age of 66 yrs. Father Family Medical History: Myocardial Infarction ([place]) Additional Family Medical History / Comment(s): Father of a [place] at the age of 69 yrs. Medications and Allergies Home Medications Medication Instructions Recorded Confirmed Type Levothyroxine Sodium [Synthroid] 125 mcg PO DAILY 01/26/21 10/20/21 History Lisinopril-Hctz 20-12.5 mg 1 tab PO DAILY 01/26/21 10/20/21 History [Zestoretic 20-12.5] Simvastatin [Zocor] 20 mg PO DAILY 01/26/21 10/20/21 History Venlafaxine HCl ER [Effexor XR] 150 mg PO DAILY 01/26/21 10/20/21 History Aspirin 325 mg PO DAILY 04/06/21 10/20/21 History Apixaban [Eliquis] 5 mg PO BID 10/16/21 10/20/21 History Sildenafil Citrate [Viagra] 100 mg PO DIRECTED PRN 10/16/21 10/20/21 History metFORMIN HCL 500 mg PO BID 10/16/21 10/20/21 History Pseudoephedrine HCl [Sudafed] 60 mg PO DAILY PRN 10/19/21 10/20/21 History Allergies Allergy/AdvReac Type Severity Reaction Status Date / Time No Known Allergies Allergy Verified 10/19/21 11:53 Surgical - Exam Vital Signs Temp Pulse Resp BP Pulse Ox 97.2 F L 85 18 142/74 93 L 10/20/21 08:14 10/20/21 08:14 10/20/21 08:14 10/20/21 08:14 10/20/21 08:14 - General well developed, well nourished, no distress - Eyes PERRL - ENT normal pinna - Neck no masses - Respiratory normal expansion - Cardiovascular Rhythm: regular - Abdomen Colostomy in right upper quadrant Abdomen: soft, non tender Results - Labs Abnormal Lab Results - Last 24 Hours (Table) 10/20/21 Range/Units 08:47 POC Glucose (mg/dL) 138 H (70-110) mg/dL Assessment and Plan Assessment: History of left colon cancer. Patient will undergo reversal colostomy today. Patient's in the risks of surgery including recurrent colostomy, bleeding anastomotic leak and other risks associated with large BMI such as DVT pulmonary embolus with infection
[2021-10-20] MEDS ORDERED: ePHEDrine 50 MG/ML 1 ML VIAL ONE (13:21)
[2021-10-20] MEDS ORDERED: ROCURONIUM 10 MG/ML (5 ML VIAL) IV ONE (13:21)
[2021-10-20] MEDS ORDERED: PROPOFOL 10 MG/ML 20 ML VIAL IV ONE (13:21)
[2021-10-20] MEDS ORDERED: SUGAMMADEX SODIUM 200 MG/2 ML SDV IV ONE (13:21)
[2021-10-20] MEDS ORDERED: LIDOCAINE 2% INJ 20 MG/ML (2 ML VIAL) ONE (13:21)
[2021-10-20] MEDS ORDERED: SUCCINYLCHOLINE CHLORIDE 200 MG/10 ML VIAL IV ONE (13:21)
[2021-10-20] MEDS ORDERED: GLYCOPYRROLATE 0.2 MG/ML 2 ML VIAL ONE (13:21)
[2021-10-20] MEDS ORDERED: fentaNYL (PF) 50 MCG/ML 2 ML AMP ONE (13:21)
[2021-10-20] MEDS ORDERED: NEOSTIGMINE 1 MG/ML 10 ML VIAL ONE (13:21)
[2021-10-20] MEDS ORDERED: PHENYLEPHRINE-0.9% NACL SYG 1,000 MCG/10 ML SYRINGE ONE (13:21)
[2021-10-20] MEDS ORDERED: KETAMINE 10 MG/ML 20 ML VIAL ONE (13:21)
[2021-10-20] MEDS ORDERED: MIDAZOLAM 2 MG/2 ML VIAL ONE (13:21)
[2021-10-20] MEDS ORDERED: ONDANSETRON 4 MG/2 ML VIAL IVP PRN (14:45)
[2021-10-20] MEDS ORDERED: BENZOCAINE/MENTHOL LOZENG 1 EACH LOZENGE MUCOUS MEM PRN (14:45)
[2021-10-20] MEDS ORDERED: METOCLOPRAMIDE 5 MG/ML 2 ML VIAL IVP PRN (14:45)
--- NOTE | 2021-10-20 14:45 | P.OP ---
Date of Procedure: 10/20/21 Preoperative Diagnosis: History of left colon cancer Postoperative Diagnosis: History of left colon cancer Incisional hernia Parastomal hernia Procedure(s) Performed: Exploratory laparotomy Reversal of colectomy Partial colectomy Repair of incisional hernia Repair of parastomal hernia Anesthesia: SERGEYA Surgeon: Ruslan Caldwell Estimated Blood Loss (ml): 50 Pathology: other (colon) Condition: stable Disposition: PACU
[2021-10-20] MEDS: HYDROmorphone 0.5 MG/0.5 ML SYRINGE IVP PRN ×2 (15:50→16:10)
[2021-10-20] MEDS ORDERED: ONDANSETRON 4 MG/2 ML VIAL IVP ONE (15:50)
[2021-10-20] MEDS: LACTATED RINGERS 1,000 ML IV SCH (17:11)
[2021-10-20] MEDS: HYDROmorphone 1 MG/ML 1 ML SYRINGE IVP PRN ×2 (17:41→22:55)
[2021-10-20 18:40] LABS: Basophils # (A) 0.1 k/uL (0-0.2); Basophils % (A) 1 %; Eosinophils # (A) 0.1 k/uL (0-0.7); Eosinophils % (A) 1 %; HCT 54.9 % (39.0-53.0); HGB 16.7 gm/dL (13.0-17.5); Hypochromasia Marked; Lymphocytes # (A) 1.2 k/uL (1.0-4.8); Lymphocytes % (A) 9 %; MCH 31.8 pg (25.0-35.0); MCHC 30.3 g/dL (31.0-37.0); Macrocytosis Moderate; Mean Platelet Volume 9.6; Monocytes # (A) 0.7 k/uL (0-1.0); Monocytes % (A) 5 %; Neutrophils # (A) 10.9 k/uL (1.3-7.7); Neutrophils % (A) 84 %; Platelet Count 356 k/uL (150-450); RBC 5.23 m/uL (4.30-5.90); RDW 15.7 % (11.5-15.5)
[2021-10-20 18:48] LABS: African American GFR (CKD) >90 (>60 ml/min/1.73 sqM); Anion Gap 5 mmol/L; Blood Urea Nitrogen 10 mg/dL (9-20); Calcium 8.7 mg/dL (8.4-10.2); Carbon Dioxide 31 mmol/L (22-30); Chloride 100 mmol/L (98-107); Glucose 167 mg/dL (74-99); Non-African American GFR(CKD) >90 (>60 ml/min/1.73 sqM); Potassium 4.7 mmol/L (3.5-5.1); Sodium 136 mmol/L (137-145)
[2021-10-20 20:05] LABS: Glucose,Whole Blood 149 mg/dL (70-110)
[2021-10-20] MEDS: FAMOTIDINE 20 MG/2 ML VIAL IV SCH (22:46)
[2021-10-20] MEDS: ALVIMOPAN 12 MG CAPSULE PO SCH (22:46)
[2021-10-20] MEDS: D5-0.45% NACL WITH KCL 20MEQ/L 1,000 ML IV SCH (23:13)
[2021-10-21] MEDS: D5-0.45% NACL WITH KCL 20MEQ/L 1,000 ML IV SCH ×3 (04:03→20:28)
[2021-10-21] MEDS: HYDROmorphone 1 MG/ML 1 ML SYRINGE IVP PRN ×4 (04:18→17:35)
[2021-10-21 06:56] LABS: Glucose,Whole Blood 153 mg/dL (70-110)
[2021-10-21] MEDS: LACTATED RINGERS 1,000 ML IV SCH (07:00)
[2021-10-21] MEDS: FAMOTIDINE 20 MG/2 ML VIAL IV SCH ×2 (07:39→20:28)
[2021-10-21] MEDS: KETOROLAC 15 MG/ML 1 ML VIAL IVP PRN ×3 (07:39→20:34)
[2021-10-21] MEDS: ENOXAPARIN 40 MG/0.4 ML SYRINGE SQ SCH (07:39)
[2021-10-21] MEDS: ALVIMOPAN 12 MG CAPSULE PO SCH ×2 (07:40→20:28)
[2021-10-21] MEDS ORDERED: DEXTROSE 50% SYRINGE 50 ML IVP PRN ×2 (09:18)
[2021-10-21 10:46] LABS: Glucose,Whole Blood 161 mg/dL (70-110)
--- NOTE | 2021-10-21 10:51 | P.PN ---
Subjective Progress Note Date: 10/21/21 CHIEF COMPLAINT: History of left colon cancer HISTORY OF PRESENT ILLNESS: Patient is postop day #1 status post exploratory laparotomy, reversal of colostomy, partial colectomy, repair of incisional hernia and repair of parastomal hernia. Patient does report pain that is controlled pain medication. Denies any nausea or vomiting. Currently nothing by mouth except for ice chips. Afebrile. White count 13. Hgb 16.7 platelets 356 sodium 136 potassium 4.7 creatinine 0.58 Patient seen and examined with Dr. Caldwell PHYSICAL EXAM: VITAL SIGNS: Reviewed. GENERAL: Well-developed in no acute distress. Sweaty HEENT: No sclera icterus. Extraocular movements grossly intact. Moist buccal mucosa. Head is atraumatic, normocephalic. ABDOMEN: Soft. Nondistended. NEUROLOGIC: Alert and oriented. Cranial nerves II through XII grossly intact. ASSESSMENT: 1. History of left colon cancer, incisional hernia and parastomal hernia status post exploratory laparotomy, reversal of colostomy, partial colectomy, repair of incisional hernia and repair of parastomal hernia PLAN: -Discontinue [place] catheter -Monitor strict I's and O's -Keep patient nothing by mouth except for ice chips -Encouraged patient to ambulate and increase activity level -Consult PT OT -Encouraged patient to use incentive spirometer -Change incisional dressing to optifoam silver -Continue IV fluids -Continue pain medication as needed -GI prophylaxis Pepcid and DVT prophylaxis Lovenox Physician K 9 Handler/ Deputy note has been reviewed by physician. Signing provider agrees with the documented findings, assessment, and plan of care. Objective - Vital Signs Vital signs: Vital Signs Temp 97.6 F 10/21/21 07:00 Pulse 83 10/21/21 07:00 Resp 14 10/21/21 07:00 BP 101/65 10/21/21 07:00 Pulse Ox 94 L 10/21/21 08:47 FiO2 70 10/21/21 03:37 Intake & Output 10/20/21 10/21/21 10/21/21 18:59 06:59 18:59 Intake Total 1900 Output Total 850 Balance 1050 Weight 182.3 kg Intake: IV 1900 Output: Urine 800 Estimated Blood Loss 50 Other: Voiding Method Indwelling Catheter Indwelling Catheter - Labs CBC & Chem 7: 10/20/21 18:16 10/20/21 18:16 Labs: Abnormal Lab Results - Last 24 Hours (Table) 10/20/21 10/20/21 10/20/21 Range/Units 18:16 18:16 20:04 WBC 13.0 H (3.8-10.6) k/uL Hct 54.9 H (39.0-53.0) % MCV 105.0 H (80.0-100.0) fL MCHC 30.3 L (31.0-37.0) g/dL RDW 15.7 H (11.5-15.5) % Neutrophils # 10.9 H (1.3-7.7) k/uL Sodium 136 L (137-145) mmol/L Carbon Dioxide 31 H (22-30) mmol/L Creatinine 0.58 L (0.66-1.25) mg/dL Glucose 167 H (74-99) mg/dL POC Glucose (mg/dL) 149 H (70-110) mg/dL 10/21/21 10/21/21 Range/Units 06:54 10:44 WBC (3.8-10.6) k/uL Hct (39.0-53.0) % MCV (80.0-100.0) fL MCHC (31.0-37.0) g/dL RDW (11.5-15.5) % Neutrophils # (1.3-7.7) k/uL Sodium (137-145) mmol/L Carbon Dioxide (22-30) mmol/L Creatinine (0.66-1.25) mg/dL Glucose (74-99) mg/dL POC Glucose (mg/dL) 153 H 161 H (70-110) mg/dL
[2021-10-21] MEDS: INSULIN ASPART (NovoLOG) 100 UNIT/ML VIAL SQ SCH ×3 (11:55→20:43)
--- NOTE | 2021-10-21 14:51 | P.CONS ---
History of Present Illness - Reason for Consult Consult date: 10/21/21 Medical management postop colostomy reversal, colon cancer - History of Present Illness This is a pleasant 60-year-old male who was recently admitted under surgical services and is postop day #1 underwent exploratory laparotomy with reversal of colostomy, partial colectomy and repair of incisional hernia and repair of p arastomal hernia and is being closely monitored. Patient does have a history of left colon cancer, diabetes mellitus, hyperlipidemia, hypertension, sleep apnea, thyroid, vascular, diverticulitis, aortic aneurysm, chronic low back pain and bilateral knee pain, DVT in the upper extremity. Patient follows with Dr. donovan outpatient and was admitted under Dr. Caldwell. Labs reviewed and recommend fo llow-up labs in the a.m. and also recommend Accu-Cheks before meals and at bedtime and continuing with sliding scale. Patient does use BiPAP at night and is currently maintained on 3 L via nasal cannula with oxygen saturation of 94%. Review Of Systems: Constitutional: No fever, no chills, no night sweats. No weight change. No weakness, fatigue or lethargy. No daytime sleepiness. EENT: No headache. No blurred vision or double vision, no loss of vision. No loss of Hearing, no ringing in the ears, no dizziness. No nasal drainage or congestion. No epistaxis. No sore throat. Lungs: No shortness of breath, cough, no sputum production. No wheezing. Cardiovascular: No chest pain, no lower extremity edema. No palpitations. No paroxysmal nocturnal dyspnea. No orthopnea. No lightheadedness or dizziness. No syncopal episodes. Abdominal: Reports abdominal pain. No nausea, vomiting. No diarrhea. No constipation. No bloody or tarry stools.. No loss of appetite. Genitourinary: No dysuria, increased frequency, urgency. No urinary retention. Musculoskeletal: No myalgias. No muscle weakness, no gait dysfunction, no frequent falls. No back pain. No neck pain. Integumentary: No wounds, no lesions. No rash or pruritus. No unusual bruising. No change in hair or nails. Neurologic: No aphasia. No facial droop. No change in mentation. No head injury. No headache. No paralysis. No paresthesia. Psychiatric: No depression. No anxiety. No mood swings. Endocrine: No abnormal blood sugars. No weight change. No excessive sweating or thirst. No cold intolerance. PHYSICAL EXAMINATION: GENERAL: The patient is alert and oriented x4, Well developed, well nourished. HEENT: Pupils are round and equally reacting to light. EOMI. no scleral icterus. No conjunctival pallor. Normocephalic, atraumatic. No pharyngeal erythema. No thyromegaly. CARDIOVASCULAR: S1 and S2 muffled PULMONARY: diminished breath sounds bilaterally with no wheezing or rhonchi noted. ABDOMEN: soft. Nontender on exam. Morbidly obese. non-distended, normoactive bowel sounds. No palpable organomegaly. MUSCULOSKELETAL: No joint swelling or deformity. EXTREMITIES: No cyanosis, clubbing, or pedal edema. NEUROLOGICAL: Gross neurological examination did not reveal any focal deficits. Diffuse weakness SKIN: No rashes. Assessment: History of colon cancer status post exploratory laparotomy with reversal of colostomy and partial colectomy and repair of incisional hernia and repair of p arastomal hernia Diabetes mellitus, type II Hyperlipidemia Hypertension, currently normotensive and recommend holding blood pressure medications for now Sleep apnea uses a CPAP hypothyroidism Aortic aneurysm 4.5 cm Chronic low back pain and bilateral knee pain History of colon cancer with colostomy in February 2021 along with chemotherapy History of DVT in the upper extremity maintained on eliquis GI prophylaxis DVT prophylaxis, subcutaneous Lovenox for now Full code Plan: Recommend to continue with current medications and management per general surgery services. Patient is postop day #1 currently sitting up in the chair maintained on 3 L of oxygen via nasal cannula and does use a CPAP at night. Patient does have diabetes and recommend Accu-Cheks before meals and at bedtime and continue with sliding scale as needed. Patient is continued on nothing by mouth with ice chips per surgery services and recommend follow-up a.m. labs. Recommend PT/OT therapy consult and also encourage the patient continue using incentive spirometer at least 10 times every hour while awake. Patient does take blood pressure medications in the outpatient setting in the form of lisinopril/hydrochlorothiazide although recommend holding for now as patient's blood pressures are normotensive and slightly on the lower side status postop. We will continue to follow with general surgery during this hospitalization. Thank you for this consultation. The impression and plan of care has been dictated by Tory Santos, nurse practitioner as directed. MD Francisco I have performed a history and examination and MDM of this patient, discussed the same with the dictator, and agree with the dictator's assessment and plan as written ,documented as a scribe. Based on total visit time, I have performed more than 50% of the visit. Any additional findings or plans will be noted. Past Medical History Past Medical History: Cancer, Diabetes Mellitus, Hyperlipidemia, Hypertension, Pneumonia, Sleep Apnea/CPAP/BIPAP, Thyroid Disorder, Vascular Disorder Additional Past Medical History / Comment(s): Diverticulitis, aortic aneurysm 4.5 cm, covid 02/17/21 received monoclonal antibodies., NIDDM type II, chronic low back pain/R shoulder pain and bilateral knee pain, hypothyroid, colon cancer with colostomy (02/2021) & chemo tx ., Bring c-pap machine, states blood clot in arm 3 months ago. History of Any Multi-Drug Resistant Organisms: None Reported Past Surgical History: Bowel Resection, Hernia Repair, Tonsillectomy Additional Past Surgical History / Comment(s): Colonoscopy, umbilical hernia, R hand cut injury with surgical repair,colostomy, 8 inches of colon removed (02/2021)., spleenectomy, 28 lymph nodes removed ., port a cath. Past Anesthesia/Blood Transfusion Reactions: Previous Problems w/ Anesthesia Additional Past Anesthesia/Blood Transfusion Reaction / Comm: states 2016 hernia repair he was told difficult intubation because he is heavy and has a short neck, he woke up when the anesthesiologist was putting something in his throat that was painful and he broke the velcro wrist strap loose to pull his hand away., States no problems with surgeries after that. Smoking Status: Never smoker - Past Family History Mother Family Medical History: Cancer Additional Family Medical History / Comment(s): Mother of cervical cancer with mets at the age of 66 yrs. Father Family Medical History: Myocardial Infarction ([place]) Additional Family Medical History / Comment(s): Father of a [place] at the age of 69 yrs. Medications and Allergies Home Medications Medication Instructions Recorded Confirmed Type Levothyroxine Sodium [Synthroid] 125 mcg PO DAILY 01/26/21 10/20/21 History Lisinopril-Hctz 20-12.5 mg 1 tab PO DAILY 01/26/21 10/20/21 History [Zestoretic 20-12.5] Simvastatin [Zocor] 20 mg PO DAILY 01/26/21 10/20/21 History Venlafaxine HCl ER [Effexor XR] 150 mg PO DAILY 01/26/21 10/20/21 History Aspirin 325 mg PO DAILY 04/06/21 10/20/21 History Apixaban [Eliquis] 5 mg PO BID 10/16/21 10/20/21 History Sildenafil Citrate [Viagra] 100 mg PO DIRECTED PRN 10/16/21 10/20/21 History metFORMIN HCL 500 mg PO BID 10/16/21 10/20/21 History Pseudoephedrine HCl [Sudafed] 60 mg PO DAILY PRN 10/19/21 10/20/21 History Allergies Allergy/AdvReac Type Severity Reaction Status Date / Time No Known Allergies Allergy Verified 10/19/21 11:53 Physical Exam Vitals: Vital Signs Temp Pulse Pulse Resp BP BP Pulse Ox 10/21/21 08:47 94 L 10/21/21 07:00 97.6 F 83 14 101/65 97 10/21/21 03:37 10/21/21 02:00 97.5 F L 89 110/72 95 10/20/21 23:46 10/20/21 21:35 10/20/21 19:37 97.7 F 90 16 127/74 94 L 10/20/21 17:36 98.3 F 79 14 105/65 92 L 10/20/21 16:45 80 18 114/55 96 10/20/21 16:30 78 20 111/53 10/20/21 16:15 79 18 117/57 98 10/20/21 16:00 77 18 125/59 94 L 10/20/21 15:45 78 16 133/60 96 10/20/21 15:34 10/20/21 15:31 97.3 F L 83 18 133/62 10/20/21 08:57 69 18 142/78 94 L FiO2 10/21/21 08:47 10/21/21 07:00 10/21/21 03:37 70 10/21/21 02:00 10/20/21 23:46 70 10/20/21 21:35 70 10/20/21 19:37 10/20/21 17:36 10/20/21 16:45 10/20/21 16:30 10/20/21 16:15 10/20/21 16:00 10/20/21 15:45 10/20/21 15:34 70 10/20/21 15:31 70 10/20/21 08:57 Intake and Output 10/20/21 10/21/21 10/21/21 22:59 06:59 14:59 Intake Total 200 Output Total 0 Balance 200 Intake: IV 200 Output: Urine 0 Other: Voiding Method Indwelling Catheter Weight 182.3 kg Results CBC & Chem 7: 10/20/21 18:16 10/20/21 18:16 Labs: Abnormal Lab Results - Last 24 Hours (Table) 10/20/21 10/20/21 10/20/21 Range/Units 08:47 18:16 18:16 WBC 13.0 H (3.8-10.6) k/uL Hct 54.9 H (39.0-53.0) % MCV 105.0 H (80.0-100.0) fL MCHC 30.3 L (31.0-37.0) g/dL RDW 15.7 H (11.5-15.5) % Neutrophils # 10.9 H (1.3-7.7) k/uL Sodium 136 L (137-145) mmol/L Carbon Dioxide 31 H (22-30) mmol/L Creatinine 0.58 L (0.66-1.25) mg/dL Glucose 167 H (74-99) mg/dL POC Glucose (mg/dL) 138 H (70-110) mg/dL 10/20/21 10/21/21 Range/Units 20:04 06:54 WBC (3.8-10.6) k/uL Hct (39.0-53.0) % MCV (80.0-100.0) fL MCHC (31.0-37.0) g/dL RDW (11.5-15.5) % Neutrophils # (1.3-7.7) k/uL Sodium (137-145) mmol/L Carbon Dioxide (22-30) mmol/L Creatinine (0.66-1.25) mg/dL Glucose (74-99) mg/dL POC Glucose (mg/dL) 149 H 153 H (70-110) mg/dL
[2021-10-21 15:23] LABS: Glucose,Whole Blood 126 mg/dL (70-110)
[2021-10-21 20:27] LABS: Glucose,Whole Blood 127 mg/dL (70-110)
[2021-10-22] MEDS: HYDROmorphone 1 MG/ML 1 ML SYRINGE IVP PRN ×2 (02:22→10:06)
[2021-10-22] MEDS: D5-0.45% NACL WITH KCL 20MEQ/L 1,000 ML IV SCH ×4 (05:11→23:20)
[2021-10-22] MEDS: KETOROLAC 15 MG/ML 1 ML VIAL IVP PRN (05:28)
[2021-10-22 07:04] LABS: Glucose,Whole Blood 140 mg/dL (70-110)
[2021-10-22] MEDS: INSULIN ASPART (NovoLOG) 100 UNIT/ML VIAL SQ SCH ×4 (07:24→21:30)
[2021-10-22] MEDS: LEVOTHYROXINE 125 MCG TAB PO SCH (07:27)
[2021-10-22 08:28] LABS: African American GFR (CKD) >90 (>60 ml/min/1.73 sqM); Anion Gap 2 mmol/L; Blood Urea Nitrogen 12 mg/dL (9-20); Calcium 8.2 mg/dL (8.4-10.2); Carbon Dioxide 33 mmol/L (22-30); Chloride 101 mmol/L (98-107); Glucose 139 mg/dL (74-99); Non-African American GFR(CKD) >90 (>60 ml/min/1.73 sqM); Potassium 4.8 mmol/L (3.5-5.1); Sodium 136 mmol/L (137-145)
[2021-10-22] MEDS: ALVIMOPAN 12 MG CAPSULE PO SCH ×2 (09:50→21:24)
[2021-10-22] MEDS: ENOXAPARIN 40 MG/0.4 ML SYRINGE SQ SCH (09:50)
[2021-10-22] MEDS: ATORVASTATIN 10 MG TAB PO SCH (09:50)
[2021-10-22] MEDS: LACTATED RINGERS 1,000 ML IV SCH (09:59)
[2021-10-22] MEDS ORDERED: TAMSULOSIN 0.4 MG CAP.ER.24H PO STA (10:04)
[2021-10-22] MEDS: FAMOTIDINE 20 MG/2 ML VIAL IV SCH ×2 (10:05→21:25)
[2021-10-22] MEDS ORDERED: ONDANSETRON 4 MG/2 ML VIAL IVP PRN (10:06)
--- NOTE | 2021-10-22 10:10 | P.PN ---
Subjective Progress Note Date: 10/22/21 CHIEF COMPLAINT: History of left colon cancer HISTORY OF PRESENT ILLNESS: Patient is postop day #2 status post exploratory laparotomy, reversal of colostomy, partial colectomy, repair of incisional hernia and repair of parastomal hernia. Patient does complain of abdominal pain. Nursing staff reports the Dilaudid does make him sleepy. He did have a low-grade fever of 100 this morning. Did have urinary retention required to be straight cathed last night. Bladder scan this morning was 200. He did report some mild nausea. No vomiting. He did have flatus with a small smear of a BM. He is requesting his home medications to be restarted. Patient does report having a mildly enlarged prostate. CBC pending sodium 136 potassium 4.8 creatinine 0.7 Patient seen and examined with Dr. Caldwell PHYSICAL EXAM: VITAL SIGNS: Reviewed. GENERAL: Well-developed in no acute distress. Sweaty HEENT: No sclera icterus. Extraocular movements grossly intact. Moist buccal mucosa. Head is atraumatic, normocephalic. ABDOMEN: Soft. Nondistended. Right-sided abdomen incision with [place] drain. Blood saturation noted along bandage. Mid abdominal incision is clean dry and intact. NEUROLOGIC: Alert and oriented. Cranial nerves II through XII grossly intact. ASSESSMENT: 1. History of left colon cancer, incisional hernia and parastomal hernia status post exploratory laparotomy, reversal of colostomy, partial colectomy, repair of incisional hernia and repair of parastomal hernia 2. Urinary retention PLAN: -Add Flomax for urinary retention -Continue to check postvoid residuals -Start clear liquid diet -Change Toradol to scheduled -Add [place] for pain control -Monitor strict I's and O's -Change incisional dressing -Encouraged patient to ambulate and increase activity level -Continue to work with PT OT -Encouraged patient to use incentive spirometer -Continue IV fluids -GI prophylaxis Pepcid and DVT prophylaxis Lovenox Physician Bsw note has been reviewed by physician. Signing provider agrees with the documented findings, assessment, and plan of care. Objective - Vital Signs Vital signs: Vital Signs Temp 98.2 F 10/22/21 09:18 Pulse 79 10/22/21 07:35 Resp 22 10/22/21 07:35 BP 114/71 10/22/21 07:35 Pulse Ox 94 L 10/22/21 07:35 FiO2 70 10/22/21 03:00 Intake & Output 10/21/21 10/22/21 10/22/21 18:59 06:59 18:59 Intake Total 1320 150 Output Total 800 400 Balance 520 -250 Intake: Oral 1320 150 Output: Urine 800 400 Other: Voiding Method Indwelling Catheter - Labs CBC & Chem 7: 10/20/21 18:16 10/22/21 07:18 Labs: Abnormal Lab Results - Last 24 Hours (Table) 10/20/21 10/21/21 10/21/21 Range/Units 18:16 10:44 15:21 Sodium (137-145) mmol/L Carbon Dioxide (22-30) mmol/L Glucose (74-99) mg/dL POC Glucose (mg/dL) 161 H 126 H (70-110) mg/dL Hemoglobin A1c 7.4 H (0.0-6.0) % Calcium (8.4-10.2) mg/dL 10/21/21 10/22/21 10/22/21 Range/Units 20:26 07:02 07:18 Sodium 136 L (137-145) mmol/L Carbon Dioxide 33 H (22-30) mmol/L Glucose 139 H (74-99) mg/dL POC Glucose (mg/dL) 127 H 140 H (70-110) mg/dL Hemoglobin A1c (0.0-6.0) % Calcium 8.2 L (8.4-10.2) mg/dL
[2021-10-22] MEDS: VENLAFAXINE HCL ER 150 MG CAP PO SCH (10:16)
[2021-10-22 10:51] LABS: HCT 51.1 % (39.6-50.0); HGB 15.1 g/dL (13.0-17.0); MCHC 29.5 g/dL (32.0-37.0); MCV 101.6 fL (80.0-97.0); Mean Platelet Volume 11.5 fL (9.5-12.2); NRBC Per 100 WBC 0 /100 WBCS (0.0-0.0); Platelet Count 315 X 10*3/uL (140-440); RBC 5.03 X 10*6/uL (4.40-5.60); RDW 17.3 % (11.5-14.5); WBC 11.26 X 10*3/uL (4.50-10.00)
[2021-10-22 11:18] LABS: Basophils # (A) 0.06 X 10*3/uL (0.00-0.10); Basophils % (A) 0.5 %; Eosinophils # (A) 0.63 X 10*3/uL (0.04-0.35); Eosinophils % (A) 5.6 %; Immature Grans, Automated 0.5 %; Lymphocytes # (A) 1.97 X 10*3/uL (0.90-5.00); Lymphocytes % (A) 17.5 %; Monocytes % (A) 15.1 %; Neutrophils # (A) 6.84 X 10*3/uL (1.80-7.70); Neutrophils % (A) 60.8 %
[2021-10-22 11:19] LABS: RBC Morphology NORMAL
[2021-10-22 11:44] LABS: Glucose,Whole Blood 158 mg/dL (70-110)
[2021-10-22] MEDS: KETOROLAC 15 MG/ML 1 ML VIAL IVP SCH ×2 (15:58→21:24)
[2021-10-22] MEDS: HYDROcodone/APAP 5-325MG 1 EACH TAB PO PRN (15:59)
[2021-10-22 17:00] LABS: Glucose,Whole Blood 137 mg/dL (70-110)
[2021-10-22 21:28] LABS: Glucose,Whole Blood 134 mg/dL (70-110)
--- NOTE | 2021-10-22 23:55 | P.PN ---
Subjective Progress Note Date: 10/22/21 - Reason for Consult Consult date: 10/21/21 Medical management postop colostomy reversal, colon cancer - History of Present Illness This is a pleasant 60-year-old male who was recently admitted under surgical services and is postop day #1 underwent exploratory laparotomy with reversal of colostomy, partial colectomy and repair of incisional hernia and repair of parastomal hernia and is being closely monitored. Patient does have a history of left colon cancer, diabetes mellitus, hyperlipidemia, hypertension, sleep apnea, thyroid, vascular, diverticulitis, aortic aneurysm, chronic low back pain and bilateral knee pain, DVT in the upper extremity. Patient follows with Dr. donovan outpatient and was admitted under Dr. Caldwell. Labs reviewed and recommend follow-up labs in the a.m. and also recommend Accu-Cheks before meals and at bedtime and continuing with sliding scale. Patient does use BiPAP at night and is currently maintained on 3 L via nasal cannula with oxygen saturation of 94%. 10/22/2021 Patient is seen today in follow up and is post op day 2 and is sitting up in the chair. Patient does have an abdominal binder on with noted abdominal discomfort on exam. Per nursing staff, dressing with some mild drainage noted and has been changed. Patient had a low grade temp of 100 last night. Patient denies chest pain or palpitations. Patient wbc is mildly elevated at 12 which is improved from previous. Patient has some shortness of breath and is maintained on 2-3L via NC and also wears a cpap at night. Patient is maintained on NPO with occasional ice chips and reports to feeling somewhat hungry and diet is being advanced per surgery to clear liquids. Patient reports to passing gas and positive bowel sounds noted on exam. Recommend monitoring for further temps and will obtain chest xray in the am and urinalysis. Review Of Systems: Constitutional: No fever, no chills, no night sweats. No weight change. No we akness, fatigue or lethargy. No daytime sleepiness. EENT: No headache. No blurred vision or double vision, no loss of vision. No loss of Hearing, no ringing in the ears, no dizziness. No nasal drainage or congestion. No epistaxis. No sore throat. Lungs: mild shortness of breath with moving, no cough, no sputum production. No wheezing. Cardiovascular: No chest pain, No palpitations. Abdominal: Reports abdominal pain. No nausea, vomiting. No diarrhea. reports passing gas with a smear of stool noted on his bed this morning while transferring to chair Genitourinary: No dysuria, reports some urinary retention. Musculoskeletal: No myalgias. No muscle weakness, no gait dysfunction, no frequent falls. No back pain. No neck pain. Neurologic: No aphasia. No facial droop. No change in mentation. No head injury. No headache. No paralysis. No paresthesia. PHYSICAL EXAMINATION: GENERAL: The patient is alert and oriented x4, Well developed, well nourished. morbidly obese HEENT: Pupils are round and equally reacting to light. EOMI. no scleral icterus. No conjunctival pallor. Normocephalic, atraumatic. No pharyngeal erythema. No thyromegaly. CARDIOVASCULAR: S1 and S2 muffled PULMONARY: diminished breath sounds bilaterally with no wheezing or rhonchi noted. ABDOMEN: soft. tender on exam. Morbidly obese. non-distended, normoactive bowel sounds. No palpable organomegaly. MUSCULOSKELETAL: No joint swelling or deformity. EXTREMITIES: No cyanosis, clubbing, or pedal edema. generalized edema of lower extremities NEUROLOGICAL: Gross neurological examination did not reveal any focal deficits. Diffuse weakness SKIN: No rashes. Assessment: History of colon cancer status post exploratory laparotomy with reversal of colostomy and partial colectomy and repair of incisional hernia and repair of parastomal hernia mild leukocytosis possibly reactive secondary to recent surgery urinary retention Diabetes mellitus, type II Hyperlipidemia Hypertension, currently normotensive and recommend holding blood pressure medications for now Sleep apnea uses a CPAP hypothyroidism Aortic aneurysm 4.5 cm Chronic low back pain and bilateral knee pain History of colon cancer with colostomy in February 2021 along with chemotherapy History of DVT in the upper extremity maintained on eliquis GI prophylaxis DVT prophylaxis, subcutaneous Lovenox for now Full code Plan: Recommend to continue with current medications and management per general surgery services. Patient is postop day #2 currently sitting up in the chair maintained on 3 L of oxygen via nasal cannula and does use a CPAP at night. recommend Accu-Cheks before meals and at bedtime and continue with sliding scale as needed. Patient is continued on ice chips per surgery services and being advanced to clear liquids. Recommend a.m. labs. Recommend PT/OT therapy consult and also encourage the patient continue using incentive spirometer at least 10 times every hour while awake. Patient had a low grade temp of 100 and recommend closely monitoring for further temps. Urinalysis and chest xray ordered as part of the work-up. Not currently on antibiotics. Pain management per surgery. Patient also with some urinary retention and flomax has been added. Patient reports to voiding and denies pain or burning. Given patients body habitus and limited abilities to get up due to pain, this may be somewhat contributing to his mild retention. If continuing to retain recommend straight cath. Encouraged increased activity as tolerated. We will continue to follow with general surgery during this hospitalization. Thank you for this consultation. The impression and plan of care has been dictated by Tory Santos, nurse practitioner as directed. MD Francisco I have performed a history and examination and MDM of this patient, discussed the same with the dictator, and agree with the dictator's assessment and plan as written ,documented as a scribe. Based on total visit time, I have performed more than 50% of the visit. Any additional findings or plans will be noted. Objective - Vital Signs Vital signs: Vital Signs Temp 100.0 F H 10/22/21 07:35 Pulse 79 10/22/21 07:35 Resp 22 10/22/21 07:35 BP 114/71 10/22/21 07:35 Pulse Ox 94 L 10/22/21 07:35 FiO2 70 10/22/21 03:00 Intake & Output 10/21/21 10/22/21 10/22/21 18:59 06:59 18:59 Intake Total 1320 150 Output Total 800 400 Balance 520 -250 Intake: Oral 1320 150 Output: Urine 800 400 Other: Voiding Method Indwelling Catheter - Labs CBC & Chem 7: 10/22/21 07:18 10/22/21 07:18 Labs: Abnormal Lab Results - Last 24 Hours (Table) 10/20/21 10/21/21 10/21/21 Range/Units 18:16 10:44 15:21 Sodium (137-145) mmol/L Carbon Dioxide (22-30) mmol/L Glucose (74-99) mg/dL POC Glucose (mg/dL) 161 H 126 H (70-110) mg/dL Hemoglobin A1c 7.4 H (0.0-6.0) % Calcium (8.4-10.2) mg/dL 10/21/21 10/22/21 10/22/21 Range/Units 20:26 07:02 07:18 Sodium 136 L (137-145) mmol/L Carbon Dioxide 33 H (22-30) mmol/L Glucose 139 H (74-99) mg/dL POC Glucose (mg/dL) 127 H 140 H (70-110) mg/dL Hemoglobin A1c (0.0-6.0) % Calcium 8.2 L (8.4-10.2) mg/dL
[2021-10-23] MEDS: KETOROLAC 15 MG/ML 1 ML VIAL IVP SCH ×4 (01:26→17:10)
[2021-10-23] MEDS: HYDROcodone/APAP 5-325MG 1 EACH TAB PO PRN (04:00)
[2021-10-23 05:06] LABS: Appearance,Urine Clear (Clear); Bilirubin,Urine Negative (Negative); Blood,Urine Negative (Negative); Color,Urine Yellow; Glucose,Urine (UA) Negative (Negative); Ketones,Urine Negative (Negative); Leukocyte Esterase,Urine Negative (Negative); Nitrite,Urine Negative (Negative); Protein,Urine Trace (Negative); Specific Gravity,Urine 1.009 (1.001-1.035); Urobilinogen,Urine <2.0 mg/dL (<2.0)
[2021-10-23] MEDS: LACTATED RINGERS 1,000 ML IV SCH (06:40)
[2021-10-23] MEDS: LEVOTHYROXINE 125 MCG TAB PO SCH (06:46)
--- NOTE | 2021-10-23 06:50 | XR ---
EXAMINATION TYPE: XR chest 1V portable DATE OF EXAM: 10/23/2021 CLINICAL HISTORY: Difficulty breathing. TECHNIQUE: Single AP portable upright view of the chest is obtained. COMPARISON: Chest x-ray from April 10, 2021. CTA chest March 04, 2021 FINDINGS: Stable right subclavian Mediport catheter. Persistent elevated right hemidiaphragm with mo re prominent right mid to lower lung opacity. Stable cardiomegaly. Persistent left basilar opacity. M ore prominent small right pleural effusion. Osseous structures are intact. IMPRESSION: Cardiomegaly with small right pleural effusion. Worsening right mid to lower lung atelect asis and/or infiltrate. Persistent left basilar acute infiltrate and/or atelectasis.
[2021-10-23 07:02] LABS: Glucose,Whole Blood 148 mg/dL (70-110)
[2021-10-23] MEDS: INSULIN ASPART (NovoLOG) 100 UNIT/ML VIAL SQ SCH ×4 (07:30→21:07)
[2021-10-23] MEDS: ENOXAPARIN 40 MG/0.4 ML SYRINGE SQ SCH (07:36)
[2021-10-23] MEDS: ATORVASTATIN 10 MG TAB PO SCH (07:36)
[2021-10-23] MEDS: D5-0.45% NACL WITH KCL 20MEQ/L 1,000 ML IV SCH ×2 (07:36→16:24)
[2021-10-23] MEDS: TAMSULOSIN 0.4 MG CAP.ER.24H PO SCH (07:36)
[2021-10-23] MEDS: ALVIMOPAN 12 MG CAPSULE PO SCH ×2 (07:36→20:16)
[2021-10-23] MEDS: VENLAFAXINE HCL ER 150 MG CAP PO SCH (07:36)
[2021-10-23] MEDS: FAMOTIDINE 20 MG/2 ML VIAL IV SCH ×2 (07:37→21:20)
[2021-10-23 08:09] LABS: Basophils # (A) 0.1 k/uL (0-0.2); Basophils % (A) 1 %; Eosinophils % (A) 9 %; HCT 50.6 % (39.0-53.0); HGB 15.1 gm/dL (13.0-17.5); Hypochromasia Marked; Lymphocytes # (A) 1.9 k/uL (1.0-4.8); Lymphocytes % (A) 17 %; MCH 31.2 pg (25.0-35.0); MCHC 29.8 g/dL (31.0-37.0); MCV 104.6 fL (80.0-100.0); Macrocytosis Moderate; Mean Platelet Volume 9.5; Monocytes # (A) 1.4 k/uL (0-1.0); Monocytes % (A) 12 %; Neutrophils # (A) 6.9 k/uL (1.3-7.7); Neutrophils % (A) 61 %; Platelet Count 348 k/uL (150-450); RBC 4.83 m/uL (4.30-5.90); RDW 15.6 % (11.5-15.5); WBC 11.4 k/uL (3.8-10.6)
[2021-10-23 08:13] LABS: African American GFR (CKD) >90 (>60 ml/min/1.73 sqM); Anion Gap 3 mmol/L; Blood Urea Nitrogen 9 mg/dL (9-20); Calcium 8.4 mg/dL (8.4-10.2); Carbon Dioxide 33 mmol/L (22-30); Chloride 101 mmol/L (98-107); Glucose 146 mg/dL (74-99); Non-African American GFR(CKD) >90 (>60 ml/min/1.73 sqM); Potassium 4.8 mmol/L (3.5-5.1); Sodium 137 mmol/L (137-145)
[2021-10-23 11:31] LABS: Glucose,Whole Blood 150 mg/dL (70-110)
--- NOTE | 2021-10-23 12:20 | P.PN ---
Subjective This is a pleasant 60-year-old male who was recently admitted under surgical services and is postop day #1 underwent exploratory laparotomy with reversal of colostomy, partial colectomy and repair of incisional hernia and repair of parastomal hernia and is being closely monitored. Patient does have a history of left colon cancer, diabetes mellitus, hyperlipidemia, hypertension, sleep apnea, thyroid, vascular, diverticulitis, aortic aneurysm, chronic low back pain and bilateral knee pain, DVT in the upper extremity. Patient follows with Dr. donovan outpatient and was admitted under Dr. Caldwell. Labs reviewed and recommend follow-up labs in the a.m. and also recommend Accu-Cheks before meals and at bedtime and continuing with sliding scale. Patient does use BiPAP at night and is currently maintained on 3 L via nasal cannula with oxygen saturation of 94%. 10/22/2021 Patient is seen today in follow up and is post op day 2 and is sitting up in the chair. Patient does have an abdominal binder on with noted abdominal discomfort on exam. Per nursing staff, dressing with some mild drainage noted and has been changed. Patient had a low grade temp of 100 last night. Patient denies chest pain or palpitations. Patient wbc is mildly elevated at 12 which is improved from previous. Patient has some shortness of breath and is maintained on 2-3L via NC and also wears a cpap at night. Patient is maintained on NPO with occasional ice chips and reports to feeling somewhat hungry and diet is being advanced per surgery to clear liquids. Patient reports to passing gas and positive bowel sounds noted on exam. Recommend monitoring for further temps and will obtain chest xray in the am and urinalysis. November 23 2020 patient clinically doing well, passing gas Constitutional: Denied any fatigue denied any fever. Cardio vascular: denied any chest pain, palpitations Gastrointestinal denied any nausea vomiting Pulmonary: Denied any shortness of breath cough Neurologic denied any new focal deficits All inpatient medications were reviewed and appropriate changes in these medications as dictated in the interval history and assessment and plan. PHYSICAL EXAMINATION: GENERAL: The patient is alert and oriented x4, Well developed, well nourished. morbidly obese HEENT: Pupils are round and equally reacting to light. EOMI. no scleral icterus. No conjunctival pallor. Normocephalic, atraumatic. No pharyngeal erythema. No thyromegaly. CARDIOVASCULAR: S1 and S2 muffled PULMONARY: diminished breath sounds bilaterally with no wheezing or rhonchi noted. ABDOMEN: soft. tender on exam. Morbidly obese. non-distended, normoactive bowel sounds. No palpable organomegaly. MUSCULOSKELETAL: No joint swelling or deformity. EXTREMITIES: No cyanosis, clubbing, or pedal edema. generalized edema of lower extremities NEUROLOGICAL: Gross neurological examination did not reveal any focal deficits. Diffuse weakness SKIN: No rashes. Assessment: History of colon cancer status post exploratory laparotomy with reversal of colostomy and partial colectomy and repair of incisional hernia and repair of parastomal hernia mild leukocytosis possibly reactive secondary to recent surgery urinary retention Diabetes mellitus, type II Hyperlipidemia Hypertension, currently normotensive and recommend holding blood pressure medications for now Sleep apnea uses a CPAP hypothyroidism Aortic aneurysm 4.5 cm Chronic low back pain and bilateral knee pain History of colon cancer with colostomy in February 2021 along with chemotherapy History of DVT in the upper extremity maintained on eliquis GI prophylaxis DVT prophylaxis, subcutaneous Lovenox for now Full code Objective - Vital Signs Vital signs: Vital Signs Temp 97.4 F L 10/23/21 07:30 Pulse 65 10/23/21 07:30 Resp 17 10/23/21 07:30 BP 129/79 10/23/21 07:30 Pulse Ox 91 L 10/23/21 08:30 FiO2 50 10/23/21 04:03 Intake & Output 10/22/21 10/23/21 10/23/21 18:59 06:59 18:59 Intake Total 240 480 Output Total 700 1500 Balance -460 -1020 Intake: Oral 240 480 Output: Urine 700 1500 Straight 200 Other: # Voids 1 - Labs CBC & Chem 7: 10/23/21 07:10 10/23/21 07:10 Labs: Abnormal Lab Results - Last 24 Hours (Table) 10/22/21 10/22/21 10/23/21 Range/Units 16:59 21:26 03:50 WBC (3.8-10.6) k/uL MCV (80.0-100.0) fL MCHC (31.0-37.0) g/dL RDW (11.5-15.5) % Monocytes # (0-1.0) k/uL Eosinophils # (0-0.7) k/uL Carbon Dioxide (22-30) mmol/L Glucose (74-99) mg/dL POC Glucose (mg/dL) 137 H 134 H (70-110) mg/dL Urine Protein Trace H (Negative) 10/23/21 10/23/21 10/23/21 Range/Units 07:01 07:10 07:10 WBC 11.4 H (3.8-10.6) k/uL MCV 104.6 H (80.0-100.0) fL MCHC 29.8 L (31.0-37.0) g/dL RDW 15.6 H (11.5-15.5) % Monocytes # 1.4 H (0-1.0) k/uL Eosinophils # 1.0 H (0-0.7) k/uL Carbon Dioxide 33 H (22-30) mmol/L Glucose 146 H (74-99) mg/dL POC Glucose (mg/dL) 148 H (70-110) mg/dL Urine Protein (Negative) 10/23/21 Range/Units 11:29 WBC (3.8-10.6) k/uL MCV (80.0-100.0) fL MCHC (31.0-37.0) g/dL RDW (11.5-15.5) % Monocytes # (0-1.0) k/uL Eosinophils # (0-0.7) k/uL Carbon Dioxide (22-30) mmol/L Glucose (74-99) mg/dL POC Glucose (mg/dL) 150 H (70-110) mg/dL Urine Protein (Negative)
[2021-10-23] MEDS ORDERED: ALPRAZolam 0.25 MG TAB PO PRN (12:23)
--- NOTE | 2021-10-23 13:07 | P.PN ---
Subjective Progress Note Date: 10/23/21 CHIEF COMPLAINT: History of left colon cancer HISTORY OF PRESENT ILLNESS: Patient is postop day #3 status post exploratory laparotomy, reversal of colostomy, partial colectomy, repair of incisional hernia and repair of parastomal hernia. Patient reports that his pain is better controlled today. He is sitting up at bedside chair. He has been up and ambulating in the hallway. He denies any nausea or vomiting. He is tolerating clear liquids. He did have some flatus yesterday. Did have a low-grade temp of 100.1 last night. Patient's urine output has improved. He did not require placement of Arroyo catheter. Chest x-ray shows cardiomegaly with small right pleural effusion. Worsening right mid to lower lung atelectasis and/or infiltrate. Persistent left basilar acute infiltrate and/or atelectasis. WBC 11.4 H she be 15.1 platelets 348 sodium was 1:30 7. potassium is 4.8 creatinine 0.75 urinalysis negative. Patient is complaining of anxiety and requesting something to help with his anxiety. Patient seen and examined with Dr. Caldwell PHYSICAL EXAM: VITAL SIGNS: Reviewed. GENERAL: Well-developed in no acute distress. Sweaty HEENT: No sclera icterus. Extraocular movements grossly intact. Moist buccal mucosa. Head is atraumatic, normocephalic. ABDOMEN: Soft. Nondistended. Right-sided abdomen incision with Cotton drain. Incisional dressing clean dry and intact NEUROLOGIC: Alert and oriented. Cranial nerves II through XII grossly intact. ASSESSMENT: 1. History of left colon cancer, incisional hernia and parastomal hernia status post exploratory laparotomy, reversal of colostomy, partial colectomy, repair of incisional hernia and repair of parastomal hernia 2. Urinary retention improved PLAN: -Xanax PRN added for anxiety -Encouraged patient to ambulate -Continue Flomax for urinary retention -Continue clear liquid diet -Continue pain medication as needed -Monitor strict I's and O's -Encouraged patient to use incentive spirometer -Continue IV fluids -Continue Entereg -GI prophylaxis Pepcid and DVT prophylaxis Lovenox Physician [employer] Accounting Manager note has been reviewed by physician. Signing provider agrees with the documented findings, assessment, and plan of care. Objective - Vital Signs Vital signs: Vital Signs Temp 97.4 F L 10/23/21 07:30 Pulse 65 10/23/21 07:30 Resp 17 10/23/21 07:30 BP 129/79 10/23/21 07:30 Pulse Ox 91 L 10/23/21 08:30 FiO2 50 10/23/21 04:03 Intake & Output 10/22/21 10/23/21 10/23/21 18:59 06:59 18:59 Intake Total 240 480 Output Total 700 1500 Balance -460 -1020 Intake: Oral 240 480 Output: Urine 700 1500 Straight 200 Other: # Voids 1 - Labs CBC & Chem 7: 10/23/21 07:10 10/23/21 07:10 Labs: Abnormal Lab Results - Last 24 Hours (Table) 10/22/21 10/22/21 10/23/21 Range/Units 16:59 21:26 03:50 WBC (3.8-10.6) k/uL MCV (80.0-100.0) fL MCHC (31.0-37.0) g/dL RDW (11.5-15.5) % Monocytes # (0-1.0) k/uL Eosinophils # (0-0.7) k/uL Carbon Dioxide (22-30) mmol/L Glucose (74-99) mg/dL POC Glucose (mg/dL) 137 H 134 H (70-110) mg/dL Urine Protein Trace H (Negative) 10/23/21 10/23/21 10/23/21 Range/Units 07:01 07:10 07:10 WBC 11.4 H (3.8-10.6) k/uL MCV 104.6 H (80.0-100.0) fL MCHC 29.8 L (31.0-37.0) g/dL RDW 15.6 H (11.5-15.5) % Monocytes # 1.4 H (0-1.0) k/uL Eosinophils # 1.0 H (0-0.7) k/uL Carbon Dioxide 33 H (22-30) mmol/L Glucose 146 H (74-99) mg/dL POC Glucose (mg/dL) 148 H (70-110) mg/dL Urine Protein (Negative) 10/23/21 Range/Units 11:29 WBC (3.8-10.6) k/uL MCV (80.0-100.0) fL MCHC (31.0-37.0) g/dL RDW (11.5-15.5) % Monocytes # (0-1.0) k/uL Eosinophils # (0-0.7) k/uL Carbon Dioxide (22-30) mmol/L Glucose (74-99) mg/dL POC Glucose (mg/dL) 150 H (70-110) mg/dL Urine Protein (Negative)
[2021-10-23 16:41] LABS: Glucose,Whole Blood 127 mg/dL (70-110)
[2021-10-23 20:41] LABS: Glucose,Whole Blood 127 mg/dL (70-110)
[2021-10-24] MEDS: D5-0.45% NACL WITH KCL 20MEQ/L 1,000 ML IV SCH ×4 (00:18→23:12)
[2021-10-24] MEDS: KETOROLAC 15 MG/ML 1 ML VIAL IVP SCH ×3 (00:31→12:44)
[2021-10-24] MEDS: HYDROmorphone 1 MG/ML 1 ML SYRINGE IVP PRN ×2 (04:40→19:43)
[2021-10-24] MEDS: LACTATED RINGERS 1,000 ML IV SCH (05:11)
[2021-10-24] MEDS: LEVOTHYROXINE 125 MCG TAB PO SCH (05:38)
[2021-10-24 07:09] LABS: Glucose,Whole Blood 141 mg/dL (70-110)
[2021-10-24] MEDS: INSULIN ASPART (NovoLOG) 100 UNIT/ML VIAL SQ SCH ×4 (08:30→23:10)
[2021-10-24] MEDS: ALVIMOPAN 12 MG CAPSULE PO SCH ×2 (09:26→19:43)
[2021-10-24] MEDS: ATORVASTATIN 10 MG TAB PO SCH (09:27)
[2021-10-24] MEDS: VENLAFAXINE HCL ER 150 MG CAP PO SCH (09:27)
[2021-10-24] MEDS: TAMSULOSIN 0.4 MG CAP.ER.24H PO SCH (09:27)
[2021-10-24] MEDS: HYDROcodone/APAP 5-325MG 1 EACH TAB PO PRN ×2 (09:27→23:19)
[2021-10-24] MEDS: ENOXAPARIN 40 MG/0.4 ML SYRINGE SQ SCH (09:28)
[2021-10-24] MEDS: FAMOTIDINE 20 MG/2 ML VIAL IV SCH ×2 (09:28→19:43)
--- NOTE | 2021-10-24 10:33 | P.PN ---
Subjective Progress Note Date: 10/24/21 Principal diagnosis: Colostomy reversal Patient is postop day 4 from colostomy reversal. Remains on liquid diet. No flatus or bowel movement. Only mild abdominal discomfort. Says his pain is gradually improving. He has been ambulating. Morning labs are pending. Objective - Vital Signs Vital signs: Vital Signs Temp 97.9 F 10/24/21 02:00 Pulse 77 10/24/21 02:00 Resp 18 10/24/21 02:00 BP 130/77 10/24/21 02:00 Pulse Ox 96 10/24/21 02:00 FiO2 50 10/24/21 04:16 Intake & Output 10/23/21 10/24/21 10/24/21 18:59 06:59 18:59 Intake Total 1220 1820 Output Total 1050 1465 Balance 170 355 Intake: Intake, IV Titration 1500 Amount D5-0.45% NaCl with KCl 1500 20Meq/l 1,000 ml @ 125 mls/hr IV .Q8H [facility]OSIA Rx#: [id number] Oral 1220 320 Output: Drainage 15 Anterior Abdomen 15 Urine 1050 1450 Other: Voiding Method Toilet # Voids 4 # Bowel Movements 1 - Exam Abdomen: Soft, mild tenderness along incision, dressing clean and dry - Labs CBC & Chem 7: 10/23/21 07:10 10/23/21 07:10 Labs: Abnormal Lab Results - Last 24 Hours (Table) 10/23/21 10/23/21 10/23/21 Range/Units 11:29 16:40 20:39 POC Glucose (mg/dL) 150 H 127 H 127 H (70-110) mg/dL 10/24/21 Range/Units 07:07 POC Glucose (mg/dL) 141 H (70-110) mg/dL Assessment and Plan (1) Colonic mass Narrative/Plan: 61-year-old male doing fairly well after colostomy reversal. Continue liquid diet for now. Ambulate. May chew gum. Current Visit: No Status: Acute Code(s): K63.89 - OTHER SPECIFIED DISEASES OF INTESTINE SNOMED Code(s): 985649795
[2021-10-24 11:40] LABS: Glucose,Whole Blood 142 mg/dL (70-110)
[2021-10-24 17:11] LABS: Glucose,Whole Blood 127 mg/dL (70-110)
[2021-10-24 20:26] LABS: Glucose,Whole Blood 159 mg/dL (70-110)
--- NOTE | 2021-10-25 01:41 | P.PN ---
Subjective Progress Note Date: 10/24/21 - Reason for Consult Consult date: 10/21/21 Medical management postop colostomy reversal, colon cancer - History of Present Illness This is a pleasant 60-year-old male who was recently admitted under surgical services and is postop day #1 underwent exploratory laparotomy with reversal of colostomy, partial colectomy and repair of incisional hernia and repair of parastomal hernia and is being closely monitored. Patient does have a history of left colon cancer, diabetes mellitus, hyperlipidemia, hypertension, sleep apnea, thyroid, vascular, diverticulitis, aortic aneurysm, chronic low back pain and bilateral knee pain, DVT in the upper extremity. Patient follows with Dr. donovan outpatient and was admitted under Dr. Caldwell. Labs reviewed and recommend follow-up labs in the a.m. and also recommend Accu-Cheks before meals and at bedtime and continuing with sliding scale. Patient does use BiPAP at night and is currently maintained on 3 L via nasal cannula with oxygen saturation of 94%. 10/22/2021 Patient is seen today in follow up and is post op day 2 and is sitting up in the chair. Patient does have an abdominal binder on with noted abdominal discomfort on exam. Per nursing staff, dressing with some mild drainage noted and has been changed. Patient had a low grade temp of 100 last night. Patient denies chest pain or palpitations. Patient wbc is mildly elevated at 12 which is improved from previous. Patient has some shortness of breath and is maintained on 2-3L via NC and also wears a cpap at night. Patient is maintained on NPO with occasional ice chips and reports to feeling somewhat hungry and diet is being advanced per surgery to clear liquids. Patient reports to passing gas and positive bowel sounds noted on exam. Recommend monitoring for further temps and will obtain chest xray in the am and urinalysis. October 23 2021 patient clinically doing well, passing gas 10/24/2021 Patient is sitting up in the chair now maintained on 2L via NC and denies any worsening shortness of breath. Patient reports to feeling fatigued today and also reports he has been up and walking. Patient denies any bowel movements and reports to passing minimal gas. Continued on clear liquids per surgery. No new labs today and will repeat in am. Patient has been afebrile and denies chest pain or shortness of breath. Encouraged incentive spirometer at least 10 times per hour while awake. Patient reports pain is slightly improving. Review of systems: Constitutional: reports of fatigue today, fever, or chills Cardiovascular: No reports of chest pain or palpitations Respiratory: No reports of shortness of breath or cough GI: No reports of nausea, vomiting, or diarrhea, reports minimal gas and no BM yet : No reports of dysuria or retention Neurovascular: No reports of weakness or numbness All medications have been reviewed PHYSICAL EXAMINATION: GENERAL: The patient is alert and oriented x4, Well developed, well nourished. morbidly obese HEENT: Pupils are round and equally reacting to light. EOMI. no scleral icterus. No conjunctival pallor. Normocephalic, atraumatic. No pharyngeal erythema. No thyromegaly. CARDIOVASCULAR: S1 and S2 muffled PULMONARY: diminished breath sounds bilaterally with no wheezing or rhonchi noted. ABDOMEN: soft. less tender on exam. Morbidly obese. non-distended, sluggish bowel sounds. No palpable organomegaly. MUSCULOSKELETAL: No joint swelling or deformity. EXTREMITIES: No cyanosis, clubbing, or pedal edema. generalized edema of lower extremities NEUROLOGICAL: Gross neurological examination did not reveal any focal deficits. Diffuse weakness SKIN: No rashes. Assessment: History of colon cancer status post exploratory laparotomy with reversal of colostomy and partial colectomy and repair of incisional hernia and repair of parastomal hernia mild leukocytosis possibly reactive secondary to recent surgery urinary retention Diabetes mellitus, type II Hyperlipidemia Hypertension, currently normotensive and recommend holding blood pressure medications for now Sleep apnea uses a CPAP hypothyroidism Aortic aneurysm 4.5 cm Chronic low back pain and bilateral knee pain History of colon cancer with colostomy in February 2021 along with chemotherapy History of DVT in the upper extremity maintained on eliquis GI prophylaxis DVT prophylaxis, subcutaneous Lovenox for now Full code Plan: Recommend to continue with current medications and management per general surgery services. recommend Accu-Cheks before meals and at bedtime and continue with sliding scale as needed. Patient is continued on clear liquids. Recommend a.m. labs. Recommend to continue using incentive spirometer at least 10 times every hour while awake. Pain management per surgery. Encouraged increased activity as tolerated. We will continue to follow with general surgery during this hospitalization. Thank you for this consultation. The impression and plan of care has been dictated by Tory Santos, nurse practitioner as directed. MD Francisco I have performed a history and examination and MDM of this patient, discussed the same with the dictator, and agree with the dictator's assessment and plan as written ,documented as a scribe. Based on total visit time, I have performed more than 50% of the visit. Any additional findings or plans will be noted. Objective - Vital Signs Vital signs: Vital Signs Temp 97.9 F 10/24/21 02:00 Pulse 77 10/24/21 02:00 Resp 18 10/24/21 02:00 BP 130/77 10/24/21 02:00 Pulse Ox 96 10/24/21 02:00 FiO2 50 10/24/21 04:16 Intake & Output 10/23/21 10/24/21 10/24/21 18:59 06:59 18:59 Intake Total 1220 1820 Output Total 1050 1465 Balance 170 355 Intake: Intake, IV Titration 1500 Amount D5-0.45% NaCl with KCl 1500 20Meq/l 1,000 ml @ 125 mls/hr IV .Q8H [facility] Rx#: [id number] Oral 1220 320 Output: Drainage 15 Anterior Abdomen 15 Urine 1050 1450 Other: Voiding Method Toilet # Voids 4 # Bowel Movements 1 - Labs CBC & Chem 7: 10/23/21 07:10 10/23/21 07:10 Labs: Abnormal Lab Results - Last 24 Hours (Table) 10/23/21 10/23/21 10/23/21 Range/Units 11:29 16:40 20:39 POC Glucose (mg/dL) 150 H 127 H 127 H (70-110) mg/dL 10/24/21 Range/Units 07:07 POC Glucose (mg/dL) 141 H (70-110) mg/dL
[2021-10-25] MEDS: HYDROmorphone 1 MG/ML 1 ML SYRINGE IVP PRN (03:56)
[2021-10-25] MEDS: LEVOTHYROXINE 125 MCG TAB PO SCH (05:52)
[2021-10-25] MEDS: LACTATED RINGERS 1,000 ML IV SCH (05:52)
[2021-10-25 07:10] LABS: Glucose,Whole Blood 124 mg/dL (70-110)
[2021-10-25] MEDS: INSULIN ASPART (NovoLOG) 100 UNIT/ML VIAL SQ SCH ×4 (07:37→21:23)
[2021-10-25] MEDS: TAMSULOSIN 0.4 MG CAP.ER.24H PO SCH (07:54)
[2021-10-25] MEDS: D5-0.45% NACL WITH KCL 20MEQ/L 1,000 ML IV SCH ×2 (07:55→17:31)
[2021-10-25] MEDS: ATORVASTATIN 10 MG TAB PO SCH (07:55)
[2021-10-25] MEDS: ALVIMOPAN 12 MG CAPSULE PO SCH (07:55)
[2021-10-25] MEDS: VENLAFAXINE HCL ER 150 MG CAP PO SCH ×2 (07:55→07:58)
[2021-10-25] MEDS: ENOXAPARIN 40 MG/0.4 ML SYRINGE SQ SCH (07:55)
[2021-10-25] MEDS: HYDROcodone/APAP 5-325MG 1 EACH TAB PO PRN ×3 (07:56→21:33)
[2021-10-25] MEDS: FAMOTIDINE 20 MG/2 ML VIAL IV SCH ×2 (09:22→21:33)
--- NOTE | 2021-10-25 10:09 | P.PN ---
Subjective Progress Note Date: 10/25/21 Principal diagnosis: Colostomy reversal Patient doing well today. He is passing flatus. Mild incisional discomfort. He is ambulating in the hallways. He is afebrile. Morning labs pending. Objective - Vital Signs Vital signs: Vital Signs Temp 97.7 F 10/25/21 02:00 Pulse 73 10/25/21 02:00 Resp 18 10/24/21 20:00 BP 155/88 10/25/21 02:00 Pulse Ox 98 10/25/21 02:00 FiO2 50 10/25/21 04:18 Intake & Output 10/24/21 10/25/21 10/25/21 18:59 06:59 18:59 Intake Total 3000 2922 Output Total 2250 2400 Balance 750 522 Intake: IV 1500 D5-0.45% NaCl with KCl 1500 20Meq/l 1,000 ml @ 125 mls/hr IV .Q8H [facility] Rx#: [id number] Intake, IV Titration 1500 Amount D5-0.45% NaCl with KCl 1500 20Meq/l 1,000 ml @ 125 mls/hr IV .Q8H [facility] Rx#: [id number] Oral 1500 1422 Output: Urine 2250 2400 Other: Voiding Method Toilet Toilet # Voids 2 - Exam Abdomen: Soft, nondistended, dressing clean and dry, mild midline incisional tenderness - Labs CBC & Chem 7: 10/23/21 07:10 10/23/21 07:10 Labs: Abnormal Lab Results - Last 24 Hours (Table) 10/24/21 10/24/21 10/24/21 Range/Units 11:39 17:06 20:25 POC Glucose (mg/dL) 142 H 127 H 159 H (70-110) mg/dL 10/25/21 Range/Units 07:09 POC Glucose (mg/dL) 124 H (70-110) mg/dL Assessment and Plan (1) Colonic mass Narrative/Plan: Patient is doing well at this time. Continue increasing diet gradually. Ambulate. Check morning labs. Current Visit: No Status: Acute Code(s): K63.89 - OTHER SPECIFIED DISEASES OF INTESTINE SNOMED Code(s): 793154134
[2021-10-25 11:19] LABS: Glucose,Whole Blood 143 mg/dL (70-110)
[2021-10-25 11:55] LABS: Basophils # (A) 0.04 X 10*3/uL (0.00-0.10); Basophils % (A) 0.4 %; Eosinophils # (A) 0.68 X 10*3/uL (0.04-0.35); Eosinophils % (A) 7.4 %; HCT 52.2 % (39.6-50.0); HGB 15.4 g/dL (13.0-17.0); Immature Grans, Automated 0.8 %; Lymphocytes # (A) 1.78 X 10*3/uL (0.90-5.00); Lymphocytes % (A) 19.5 %; MCH 29.9 pg (27.0-32.0); MCHC 29.5 g/dL (32.0-37.0); MCV 101.4 fL (80.0-97.0); Mean Platelet Volume 10.9 fL (9.5-12.2); Monocytes # (A) 1.65 X 10*3/uL (0.20-1.00); Monocytes % (A) 18.1 %; NRBC Per 100 WBC 0 /100 WBCS (0.0-0.0); Neutrophils # (A) 4.92 X 10*3/uL (1.80-7.70); Neutrophils % (A) 53.8 %; Platelet Count 402 X 10*3/uL (140-440); RBC 5.15 X 10*6/uL (4.40-5.60); RDW 16.9 % (11.5-14.5); WBC 9.14 X 10*3/uL (4.50-10.00)
[2021-10-25 13:18] LABS: African American GFR (CKD) 111.1 (60.0-200.0); Anion Gap 6.2 mmol/L (10.00-18.00); BUN/Creat Ratio 5.65 Ratio (12.00-20.00); Blood Urea Nitrogen 4.6 mg/dL (9.0-27.0); Calcium 9.3 mg/dL (8.7-10.3); Non-African American GFR(CKD) 95.8 (60.0-200.0); Potassium 5.4 mmol/L (3.5-5.5)
--- NOTE | 2021-10-25 14:57 | P.PN ---
Subjective Progress Note Date: 10/25/21 - Reason for Consult Consult date: 10/21/21 Medical management postop colostomy reversal, colon cancer - History of Present Illness This is a pleasant 60-year-old male who was recently admitted under surgical services and is postop day #1 underwent exploratory laparotomy with reversal of colostomy, partial colectomy and repair of incisional hernia and repair of parastomal hernia and is being closely monitored. Patient does have a history of left colon cancer, diabetes mellitus, hyperlipidemia, hypertension, sleep apnea, thyroid, vascular, diverticulitis, aortic aneurysm, chronic low back pain and bilateral knee pain, DVT in the upper extremity. Patient follows with Dr. donovan outpatient and was admitted under Dr. Caldwell. Labs reviewed and recommend follow-up labs in the a.m. and also recommend Accu-Cheks before meals and at bedtime and continuing with sliding scale. Patient does use BiPAP at night and is currently maintained on 3 L via nasal cannula with oxygen saturation of 94%. 10/22/2021 Patient is seen today in follow up and is post op day 2 and is sitting up in the chair. Patient does have an abdominal binder on with noted abdominal discomfort on exam. Per nursing staff, dressing with some mild drainage noted and has been changed. Patient had a low grade temp of 100 last night. Patient denies chest pain or palpitations. Patient wbc is mildly elevated at 12 which is improved from previous. Patient has some shortness of breath and is maintained on 2-3L via NC and also wears a cpap at night. Patient is maintained on NPO with occasional ice chips and reports to feeling somewhat hungry and diet is being advanced per surgery to clear liquids. Patient reports to passing gas and positive bowel sounds noted on exam. Recommend monitoring for further temps and will obtain chest xray in the am and urinalysis. October 23 2021 patient clinically doing well, passing gas 10/24/2021 Patient is sitting up in the chair now maintained on 2L via NC and denies any worsening shortness of breath. Patient reports to feeling fatigued today and also reports he has been up and walking. Patient denies any bowel movements and reports to passing minimal gas. Continued on clear liquids per surgery. No new labs today and will repeat in am. Patient has been afebrile and denies chest pain or shortness of breath. Encouraged incentive spirometer at least 10 times per hour while awake. Patient reports pain is slightly improving. 10/25/2021 Patient is seen and evaluated in follow-up today and reports to gypsyking multiple times in the hallways and around the unit yesterday. Patient reports he is passing gas and per surgery he will be advanced in his diet. Patient continues with abdominal binder noted and dressing changes per surgery. WBC is 9.14, hemoglobin is 15.4, sodium is 142 with a potassium of 5.4 and current creatinine is 0.8. Patient is maintained on Accu-Cheks before meals and at bedtime and will use sliding scale as needed. She continues to use CPAP at night and is currently maintaining oxygen saturations above 92% on room air. Encouraged incentive spirometer use at least 10 times every hour while awake. Patient is afebrile denies chest pain or shortness of breath. Patient denies nausea or vomiting and asking for an advancing diet as he feels hungry. Review of systems: Constitutional: reports of fatigue today, no reports of fever, or chills Cardiovascular: No reports of chest pain or palpitations Respiratory: No reports of shortness of breath or cough GI: No reports of nausea, vomiting, or diarrhea, reports minimal gas and no BM yet : No reports of dysuria or retention Neurovascular: No reports of weakness or numbness All medications have been reviewed PHYSICAL EXAMINATION: GENERAL: The patient is alert and oriented x4, Well developed, well nourished. morbidly obese HEENT: Pupils are round and equally reacting to light. EOMI. no scleral icterus. No conjunctival pallor. Normocephalic, atraumatic. No pharyngeal erythema. No thyromegaly. CARDIOVASCULAR: S1 and S2 muffled PULMONARY: diminished breath sounds bilaterally with no wheezing or rhonchi noted. ABDOMEN: soft. less tender on exam. Morbidly obese. non-distended, sluggish bowel sounds. No palpable organomegaly. MUSCULOSKELETAL: No joint swelling or deformity. EXTREMITIES: No cyanosis, clubbing, or pedal edema. generalized edema of lower extremities NEUROLOGICAL: Gross neurological examination did not reveal any focal deficits. Diffuse weakness SKIN: No rashes. Assessment: History of colon cancer status post exploratory laparotomy with reversal of colostomy and partial colectomy and repair of incisional hernia and repair of parastomal hernia mild leukocytosis possibly reactive secondary to recent surgery, improved urinary retention, improved after Flomax and Arroyo removed and voiding with no difficulties Diabetes mellitus, type II, recommend continuing with Accu-Cheks before meals a nd at bedtime and sliding scale Hyperlipidemia Hypertension, currently trending up and will resume home blood pressure medication with follow-up labs in the a.m. Sleep apnea uses a CPAP hypothyroidism Aortic aneurysm 4.5 cm Chronic low back pain and bilateral knee pain History of colon cancer with colostomy in February 2021 along with chemotherapy History of DVT in the upper extremity maintained on eliquis GI prophylaxis DVT prophylaxis, subcutaneous Lovenox for now Full code Plan: Recommend to continue with current medications and management per general surgery services. recommend Accu-Cheks before meals and at bedtime and continue with sliding scale as needed. Patient is continued on clear liquids and tolerating reporting feeling hungry asking for an advancing diet and is being advanced to full liquids today recommend low potassium as potassium was 5.4 today. Recommend a.m. labs. Recommend to continue using incentive spirometer at least 10 times every hour while awake. Pain management per surgery. Encouraged increased activity as tolerated. Patient's blood pressure is tren ding up and takes lisinopril/hydrochlorothiazide and will resume and monitor vital signs and electrolytes closely. Recommend repeat labs in the a.m. We will continue to follow with general surgery during this hospitalization. Thank you for this consultation. The impression and plan of care has been dictated by Tory Santos, nurse practitioner as directed. MD Francisco I have performed a history and examination and MDM of this patient, discussed the same with the dictator, and agree with the dictator's assessment and plan as written ,documented as a scribe. Based on total visit time, I have performed more than 50% of the visit. Any additional findings or plans will be noted. Objective - Vital Signs Vital signs: Vital Signs Temp 97.7 F 10/25/21 02:00 Pulse 73 10/25/21 02:00 Resp 18 10/24/21 20:00 BP 155/88 10/25/21 02:00 Pulse Ox 98 10/25/21 02:00 FiO2 50 10/25/21 04:18 Intake & Output 10/24/21 10/25/21 10/25/21 18:59 06:59 18:59 Intake Total 3000 2922 Output Total 2250 2400 Balance 750 522 Intake: IV 1500 D5-0.45% NaCl with KCl 1500 20Meq/l 1,000 ml @ 125 mls/hr IV .Q8H [facility] Rx#: [id number] Intake, IV Titration 1500 Amount D5-0.45% NaCl with KCl 1500 20Meq/l 1,000 ml @ 125 mls/hr IV .Q8H [facility] Rx#: [id number] Oral 1500 1422 Output: Urine 2250 2400 Other: Voiding Method Toilet Toilet # Voids 2 - Labs CBC & Chem 7: 10/25/21 07:54 10/25/21 07:54 Labs: Abnormal Lab Results - Last 24 Hours (Table) 10/24/21 10/24/21 10/24/21 Range/Units 11:39 17:06 20:25 POC Glucose (mg/dL) 142 H 127 H 159 H (70-110) mg/dL 10/25/21 Range/Units 07:09 POC Glucose (mg/dL) 124 H (70-110) mg/dL
[2021-10-25 16:57] LABS: Glucose,Whole Blood 132 mg/dL (70-110)
[2021-10-25] MEDS: LISINOPRIL-HCTZ 20-12.5 MG 1 EACH TAB PO SCH (17:32)
[2021-10-25 21:20] LABS: Glucose,Whole Blood 113 mg/dL (70-110)
[2021-10-26] MEDS: LEVOTHYROXINE 125 MCG TAB PO SCH (05:36)
[2021-10-26] MEDS: LACTATED RINGERS 1,000 ML IV SCH (06:13)
[2021-10-26] MEDS: D5-0.45% NACL WITH KCL 20MEQ/L 1,000 ML IV SCH ×3 (06:14→13:16)
[2021-10-26] MEDS: HYDROcodone/APAP 5-325MG 1 EACH TAB PO PRN ×2 (06:20→14:40)
[2021-10-26 06:56] LABS: Glucose,Whole Blood 124 mg/dL (70-110)
[2021-10-26] MEDS: INSULIN ASPART (NovoLOG) 100 UNIT/ML VIAL SQ SCH ×2 (07:05→13:16)
[2021-10-26] MEDS: TAMSULOSIN 0.4 MG CAP.ER.24H PO SCH (08:30)
[2021-10-26] MEDS: ATORVASTATIN 10 MG TAB PO SCH (08:30)
[2021-10-26] MEDS: FAMOTIDINE 20 MG/2 ML VIAL IV SCH (08:30)
[2021-10-26] MEDS: ENOXAPARIN 40 MG/0.4 ML SYRINGE SQ SCH (08:30)
[2021-10-26] MEDS: VENLAFAXINE HCL ER 150 MG CAP PO SCH (08:30)
[2021-10-26] MEDS: LISINOPRIL-HCTZ 20-12.5 MG 1 EACH TAB PO SCH (08:33)
[2021-10-26 09:00] LABS: Basophils # (A) 0.05 X 10*3/uL (0.00-0.10); Basophils % (A) 0.5 %; Eosinophils % (A) 6.6 %; HCT 48.3 % (39.6-50.0); HGB 14.9 g/dL (13.0-17.0); Immature Grans, Automated 1.1 %; Lymphocytes # (A) 2.24 X 10*3/uL (0.90-5.00); MCH 30.8 pg (27.0-32.0); MCHC 30.8 g/dL (32.0-37.0); Mean Platelet Volume 11.2 fL (9.5-12.2); Monocytes # (A) 1.74 X 10*3/uL (0.20-1.00); Monocytes % (A) 16.3 %; NRBC Per 100 WBC 0 /100 WBCS (0.0-0.0); Neutrophils # (A) 5.81 X 10*3/uL (1.80-7.70); Neutrophils % (A) 54.5 %; Platelet Count 413 X 10*3/uL (140-440); RBC 4.83 X 10*6/uL (4.40-5.60); WBC 10.66 X 10*3/uL (4.50-10.00)
[2021-10-26 09:06] LABS: African American GFR (CKD) 106.5 (60.0-200.0); Anion Gap 5.2 mmol/L (10.00-18.00); BUN/Creat Ratio 4.22 Ratio (12.00-20.00); Blood Urea Nitrogen 3.8 mg/dL (9.0-27.0); Calcium 9.3 mg/dL (8.7-10.3); Carbon Dioxide 39.8 mmol/L (20.0-27.5); Non-African American GFR(CKD) 91.9 (60.0-200.0); Potassium 4.6 mmol/L (3.5-5.5)
[2021-10-26 09:50] VITALS: RESP 18; TEMP 98.6
--- NOTE | 2021-10-26 11:39 | CDI ---
Documentation Clarification Form Date: 10/26/2021 11:23:34 AM From: Chayito CorreiaRaviALBINA bernardo, CCDS Admit Date: 10/20/2021 07:45:00 AM Patient Name: Patricio Story Visit Number: [id number] Discharge Date: ATTENTION: The Clinical Documentation Specialists (CDI) and [facility] Coding Staff appreciate your assistance in clarifying documentation. Please respond to the clarification below the line at the bottom and electronically sign. The CDI & [facility] Coding staff will review the response and follow-up if needed. Please note: Queries are made part of the Legal Health Record. If you have any questions, please contact the author of this message via ITS. Dr. Valentina Morgan: The following was documented in the 10/22 Medical Management Progress note: Patient also with some urinary retention and Flomax has been added. Additional clarification is requested regarding the relationship, if any, that exists between the diagnosis and the procedure. Patients Admitting Diagnosis per the 10/20 General Surgeon's History & Physical: Patient presented today for a reversal colostomy. Has history of left colon cancer at the splenic flexure. Post-Operative Diagnosis 10/20 Procedure Note: History of left colon cancer, Incisional hernia, Parastomal hernia. Procedure performed 10/20: Exploratory laparotomy. Reversal of colectomy. Partial colectomy. Repair of incisional hernia. Repair of parastomal hernia. History/Risk Factors per the 10/20 General Surgeon's H/P: Left colon cancer status post Colostomy and Chemotherapy, Diverticulitis, NIDDM II, Hyperlipidemia, Hypertension, Pneumonia, Sleep apnea, Hypothyroid, Aortic Aneurysm, COVID 19 01/2021. Clinical Indicators: Presented for elective surgery as above. Per the 10/22 Nursing Assessment: The patient's Arroyo catheter was discontinued on 10/21, urine: clear, dark adelia, output 200 ml. Patient was straight cath'd on 10/22, urine was clear, dark adelia. Treatment 10/20: I&Os, IV Lactated ringers as directed, IV Dilaudid 1 mg q3H/prn, IV Toradol 15 mg q6H/prn, IV Reglan 10 mg q6H/prn, IV Zofran 4 mg x1. 10/22: Flomax 0.4 mg . What relationship, if any, exists between the diagnosis of Urinary Retention and the procedure: [ ] Urinary Retention is a complication of surgical procedure [x ] Urinary Retention is an expected outcome of the surgical procedure [ ] Urinary Retention is related to patients co-morbid condition(s), please specify: and is not a complication of the procedure [ ] Other please specify: [ ] Unable to determine (Template Last Revised: May 2020) MTDD
[2021-10-26 11:54] LABS: Glucose,Whole Blood 126 mg/dL (70-110)
--- NOTE | 2021-10-26 13:40 | P.PN ---
Subjective Progress Note Date: 10/26/21 This is a pleasant 60-year-old male who was recently admitted under surgical services and is postop day #1 underwent exploratory laparotomy with reversal of colostomy, partial colectomy and repair of incisional hernia and repair of parastomal hernia and is being closely monitored. Patient does have a history of left colon cancer, diabetes mellitus, hyperlipidemia, hypertension, sleep apnea, thyroid, vascular, diverticulitis, aortic aneurysm, chronic low back pain and bilateral knee pain, DVT in the upper extremity. Patient follows with Dr. donovan outpatient and was admitted under Dr. Caldwell. Labs reviewed and recommend follow-up labs in the a.m. and also recommend Accu-Cheks before meals and at bedtime and continuing with sliding scale. Patient does use BiPAP at night and is currently maintained on 3 L via nasal cannula with oxygen saturation of 94%. 10/22/2021 Patient is seen today in follow up and is post op day 2 and is sitting up in the chair. Patient does have an abdominal binder on with noted abdominal discomfort on exam. Per nursing staff, dressing with some mild drainage noted and has been changed. Patient had a low grade temp of 100 last night. Patient denies chest pain or palpitations. Patient wbc is mildly elevated at 12 which is improved from previous. Patient has some shortness of breath and is maintained on 2-3L via NC and also wears a cpap at night. Patient is maintained on NPO with occasional ice chips and reports to feeling somewhat hungry and diet is being ad vanced per surgery to clear liquids. Patient reports to passing gas and positive bowel sounds noted on exam. Recommend monitoring for further temps and will obtain chest xray in the am and urinalysis. October 23 2021 patient clinically doing well, passing gas 10/24/2021 Patient is sitting up in the chair now maintained on 2L via NC and denies any worsening shortness of breath. Patient reports to feeling fatigued today and also reports he has been up and walking. Patient denies any bowel movements and reports to passing minimal gas. Continued on clear liquids per surgery. No new labs today and will repeat in am. Patient has been afebrile and denies chest pain or shortness of breath. Encouraged incentive spirometer at least 10 times per hour while awake. Patient reports pain is slightly improving. 10/25/2021 Patient is seen and evaluated in follow-up today and reports to félix multiple times in the hallways and around the unit yesterday. Patient reports he is passing gas and per surgery he will be advanced in his diet. Patient continues with abdominal binder noted and dressing changes per surgery. WBC is 9.14, hemoglobin is 15.4, sodium is 142 with a potassium of 5.4 and current creatinine is 0.8. Patient is maintained on Accu-Cheks before meals and at bedtime and will use sliding scale as needed. She continues to use CPAP at night and is currently maintaining oxygen saturations above 92% on room air. Encouraged incentive spirometer use at least 10 times every hour while awake. Patient is afebrile denies chest pain or shortness of breath. Patient denies nausea or vomiting and asking for an advancing diet as he feels hungry. 10/26/21 Patient would like to be discharged home today. He is ambulating without difficulty. Abdominal pain is improving, rates a 2/10 during exam. He does have bowel sounds, hypoactive, no BM passing lots of gas. He feels he would do better at home as far as activity level. He is using incentive spirometer, wearing abdominal binder. Labs today white count 10.66, sodium 140, potassium 4.6, BUN 3.8, creatinine 0.9. Blood glucose in the 120s, he has only been receiving 1 unit of novolog per means and we will resume metformin on discharge. All other recommendations by primary. Review of systems: Constitutional: reports of fatigue today, no reports of fever, or chills Cardiovascular: No reports of chest pain or palpitations Respiratory: No reports of shortness of breath or cough GI: No reports of nausea, vomiting, or diarrhea, reports increased gas and no BM yet : No reports of dysuria or retention Neurovascular: No reports of weakness or numbness All medications have been reviewed PHYSICAL EXAMINATION: GENERAL: The patient is alert and oriented x4, Well developed, well nourished. morbidly obese HEENT: Pupils are round and equally reacting to light. EOMI. no scleral icterus. No conjunctival pallor. Normocephalic, atraumatic. No pharyngeal erythema. No thyromegaly. CARDIOVASCULAR: S1 and S2 muffled PULMONARY: diminished breath sounds bilaterally with no wheezing or rhonchi noted. ABDOMEN: soft. less tender on exam. Morbidly obese. non-distended, sluggish bowel sounds. No palpable organomegaly. Post surgical abdomen, abdominal binder in place. MUSCULOSKELETAL: No joint swelling or deformity. EXTREMITIES: No cyanosis, clubbing, or pedal edema. generalized edema of lower extremities NEUROLOGICAL: Gross neurological examination did not reveal any focal deficits. Diffuse weakness SKIN: No rashes. Assessment: History of colon cancer status post exploratory laparotomy with reversal of colostomy and partial colectomy and repair of incisional hernia and repair of parastomal hernia mild leukocytosis possibly reactive secondary to recent surgery, improved urinary retention, improved after Flomax and Arroyo removed and voiding with no difficulties Diabetes mellitus, type II, recommend continuing with Accu-Cheks before meals and at bedtime and sliding scale Hyperlipidemia Hypertension. Sleep apnea uses a CPAP hypothyroidism Aortic aneurysm 4.5 cm Chronic low back pain and bilateral knee pain History of colon cancer with colostomy in February 2021 along with chemotherapy History of DVT in the upper extremity maintained on eliquis GI prophylaxis DVT prophylaxis, subcutaneous Lovenox for now Full code Plan: Recommend to continue with current medications and management [facility]. recommend Accu-Cheks before meals and at bedtime and continue with sliding scale as needed. Patient advanced to full liquid diet, tolearing well, potassium improved. Continue using incentive spirometer at least 10 times every hour while awake. Pain management per surgery. Encouraged increased activity as tolerated. Home blood pressure medication has been resumed. Thank you for this consultation. The impression and plan of care has been dictated by Tati Shay, Nurse Practitioner as directed. Dr. Eddie MD I have performed a history and physical examination and medical decision making of this patient, discussed the same with the dictator, and agree with the dictators assessment and plan as written, documented as a scribe. Based on total visit time, I have performed more than 50% of this visit. Objective - Vital Signs Vital signs: Vital Signs Temp 98.6 F 10/26/21 08:00 Pulse 67 10/26/21 08:00 Resp 18 10/26/21 08:00 BP 123/80 10/26/21 08:00 Pulse Ox 90 L 10/26/21 08:00 FiO2 50 10/26/21 03:48 Intake & Output 10/25/21 10/26/21 10/26/21 18:59 06:59 18:59 Intake Total 1000 2322 296 Output Total 2800 Balance 1000 -478 296 Intake: IV 1000 1500 D5-0.45% NaCl with KCl 1000 1500 20Meq/l 1,000 ml @ 125 mls/hr IV .Q8H [facility] Rx#: [id number] Oral 822 296 Output: Urine 2800 Other: Voiding Method Toilet # Voids 4 - Labs CBC & Chem 7: 10/26/21 05:56 10/26/21 05:56 Labs: Abnormal Lab Results - Last 24 Hours (Table) 10/25/21 10/25/21 10/26/21 Range/Units 16:52 21:19 05:56 WBC 10.66 H (4.50-10.00) X 10*3/uL MCV 100.0 H (80.0-97.0) fL MCHC 30.8 L (32.0-37.0) g/dL RDW 17.0 H (11.5-14.5) % Immature Gran # 0.12 H (0.00-0.04) X 10*3/uL Monocytes # 1.74 H (0.20-1.00) X 10*3/uL Eosinophils # 0.70 H (0.04-0.35) X 10*3/uL Chloride (96-109) mmol/L Carbon Dioxide (20.0-27.5) mmol/L Anion Gap (10.00-18.00) mmol/L BUN (9.0-27.0) mg/dL BUN/Creatinine Ratio (12.00-20.00) Ratio Glucose (70-110) mg/dL POC Glucose (mg/dL) 132 H 113 H (70-110) mg/dL 10/26/21 10/26/21 10/26/21 Range/Units 05:56 06:54 11:52 WBC (4.50-10.00) X 10*3/uL MCV (80.0-97.0) fL MCHC (32.0-37.0) g/dL RDW (11.5-14.5) % Immature Gran # (0.00-0.04) X 10*3/uL Monocytes # (0.20-1.00) X 10*3/uL Eosinophils # (0.04-0.35) X 10*3/uL Chloride 95 L (96-109) mmol/L Carbon Dioxide 39.8 H (20.0-27.5) mmol/L Anion Gap 5.20 L (10.00-18.00) mmol/L BUN 3.8 L (9.0-27.0) mg/dL BUN/Creatinine Ratio 4.22 L (12.00-20.00) Ratio Glucose 127 H (70-110) mg/dL POC Glucose (mg/dL) 124 H 126 H (70-110) mg/dL Assessment and Plan Time with Patient: Less than 30
[2021-10-26 14:53] VITALS: BP 165/81; PULSE 57
--- NOTE | 2021-10-26 14:53 | P.DS ---
Providers Date of admission: 10/20/21 07:45 Expected date of discharge: 10/26/21 Attending physician: Ruslan Caldwell Consults: 10/20/21 14:45 Consult Physician Routine Consulting Provider: Roberth Padgett Consult Reason/Comments: Medical management Do you want consulting provider notified?: Yes Primary care physician: Leopoldo [facility] Course: Discharge diagnosis 1. History of left colon cancer, incisional hernia and parastomal hernia status post exploratory laparotomy, reversal of colostomy, partial colectomy, repair of incisional hernia and repair of parastomal hernia 2. Urinary retention improved Hospital course This is a 61-year-old male with a known history of colon cancer. He is status post exploratory laparotomy, reversal of colostomy, partial colectomy, repair of incisional hernia and repair of parastomal hernia. Patient tolerated surgery well. His pain is controlled. He is tolerating full liquid diet. He is having flatus. He is making good urine. He is afebrile. He has been up and ambulating. He is stable for discharge. Please refer to chart for any further details. Physician [employer] note has been reviewed by physician. Signing provider agrees with the documented findings, assessment, and plan of care. Patient Condition at Discharge: Stable Plan - Discharge Summary Discharge Rx Participant: Yes New Discharge Prescriptions: New HYDROcodone/APAP 5-325MG [Treynor 5-325] 1 tab PO Q6HR PRN 3 Days #12 tab PRN Reason: Pain Tamsulosin [Flomax] 0.4 mg PO PC-BRKFST #30 cap Docusate [Colace] 100 mg PO BID #30 capsule Famotidine [Pepcid] 20 mg PO DAILY #30 tab metroNIDAZOLE [Flagyl] 500 mg PO TID #30 tab Levofloxacin [Levaquin] 500 mg PO DAILY 10 Days #10 tab Continue Sildenafil Citrate [Viagra] 100 mg PO DIRECTED PRN PRN Reason: ed Venlafaxine HCl ER [Effexor XR] 150 mg PO DAILY Simvastatin [Zocor] 20 mg PO DAILY Lisinopril-Hctz 20-12.5 mg [Zestoretic 20-12.5] 1 tab PO DAILY Levothyroxine Sodium [Synthroid] 125 mcg PO DAILY metFORMIN HCL 500 mg PO BID Apixaban [Eliquis] 5 mg PO BID Discontinued Aspirin 325 mg PO DAILY Pseudoephedrine HCl [Sudafed] 60 mg PO DAILY PRN PRN Reason: Congestion Discharge Medication List Levothyroxine Sodium [Synthroid] 125 mcg PO DAILY 01/26/21 [History] Lisinopril-Hctz 20-12.5 mg [Zestoretic 20-12.5] 1 tab PO DAILY 01/26/21 [History] Simvastatin [Zocor] 20 mg PO DAILY 01/26/21 [History] Venlafaxine HCl ER [Effexor XR] 150 mg PO DAILY 01/26/21 [History] Apixaban [Eliquis] 5 mg PO BID 10/16/21 [History] Sildenafil Citrate [Viagra] 100 mg PO DIRECTED PRN 10/16/21 [History] metFORMIN HCL 500 mg PO BID 10/16/21 [History] Docusate [Colace] 100 mg PO BID #30 capsule 10/23/21 [Rx] HYDROcodone/APAP 5-325MG [Treynor 5-325] 1 tab PO Q6HR PRN 3 Days #12 tab 10/23/21 [Rx] Famotidine [Pepcid] 20 mg PO DAILY #30 tab 10/26/21 [Rx] Levofloxacin [Levaquin] 500 mg PO DAILY 10 Days #10 tab 10/26/21 [Rx] Tamsulosin [Flomax] 0.4 mg PO PC-BRKFST #30 cap 10/26/21 [Rx] metroNIDAZOLE [Flagyl] 500 mg PO TID #30 tab 10/26/21 [Rx] Follow up Appointment(s)/Referral(s): Leopoldo Price MD [Primary Care Provider] - 1-2 Days [facility], [NON-STAFF] - ([facility] will contact you to arrange a visit. ) Ruslan Caldwell MD [STAFF PHYSICIAN] - 1 Week Ambulatory/Diagnostic Orders: Basic Metabolic Panel [LAB.AMB] Time Frame: 3 Days, Location: None Selected Activity/Diet/Wound Care/Special Instructions: No driving while taking Treynor No lifting over 10 pounds Shower daily. No soaking or tub baths for 2 weeks Very light activity until you are reevaluated at your follow up appointment with your surgeon Continue Full liquid diet at discharge until seen by surgeon Recommend to follow up with primary care in 2 to 3 days and repeat metabolic panel in 2 to 3 days as well Continue to monitor blood glucose, ok to resume metformin Discharge Disposition: HOME WITH HOME HEALTH SERVICES
[2021-10-26] MEDS ORDERED: FAMOTIDINE 20 MG TAB PO SCH (21:00)
== END 2021-10-26 16:34 | disposition home health service (06) | DRG 330 ==
LOC: 2ORMAIN 07:45 → 4SSUR 15:54
PROVIDERS: ADMIT Surgery; ATTEND Surgery
PROC: 0WQF0ZZ Repair Abdominal Wall, Open Approach (ICD-10-PCS; 2021-10-20)
PROC: 0DBE0ZZ Excision of Large Intestine, Open Approach (ICD-10-PCS; principal; 2021-10-20 09:45)
DX: Z43.3 Encounter for attention to colostomy (principal); Z68.44 Body mass index [BMI] 60.0-69.9, adult; D72.829 Elevated white blood cell count, unspecified; E03.9 Hypothyroidism, unspecified; E11.9 Type 2 diabetes mellitus without complications; E66.01 Morbid (severe) obesity due to excess calories; E78.5 Hyperlipidemia, unspecified; F41.9 Anxiety disorder, unspecified; G47.30 Sleep apnea, unspecified; G89.29 Other chronic pain; I11.9 Hypertensive heart disease without heart failure; I71.9 Aortic aneurysm of unspecified site, without rupture; K43.2 Incisional hernia without obstruction or gangrene; K43.5 Parastomal hernia without obstruction or gangrene; N40.1 Benign prostatic hyperplasia with lower urinary tract symptoms; M54.50 Low back pain, unspecified; M25.562 Pain in left knee; M25.561 Pain in right knee; R33.8 Other retention of urine; Z79.01 Long term (current) use of anticoagulants; Z90.49 Acquired absence of other specified parts of digestive tract; Z79.82 Long term (current) use of aspirin; Z79.84 Long term (current) use of oral hypoglycemic drugs; Z79.890 Hormone replacement therapy; Z79.899 Other long term (current) drug therapy; Z82.49 Family history of ischemic heart disease and other diseases of the circulatory system; Z85.038 Personal history of other malignant neoplasm of large intestine; Z86.718 Personal history of other venous thrombosis and embolism; Z90.81 Acquired absence of spleen
CPT/HCPCS: 36410; 71045; 76937; 80048; 81003; 83036; 85025; 86850; 86900; 86901; 88304; 94660; 94760

== ENCOUNTER 2021-11-25 07:49 | Day surgery (SDC) | payer BC ==
[~2021-11-25 07:49] MED LIST changes: -DEXAMETHASONE SOD PHOSPHATE 4 MG/ML 1 ML VIAL IV ONE; +LACTATED RINGERS 1,000 ML IV SCH; -LIDOCAINE 1% (10MG/ML) FOR IV START INTRADERMA PRN; -MIDAZOLAM 2 MG/2 ML VIAL IV PRN; -ONDANSETRON 4 MG/2 ML VIAL IVP ONE; +fentaNYL (PF) 50 MCG/ML 2 ML AMP IV PRN; -metroNIDAZOLE-NS PMX 500 MG in SALINE 1 100ML.BAG IVPB PRN
[2021-11-25] MEDS ORDERED: MIDAZOLAM 2 MG/2 ML VIAL IVP ONE (08:05)
[2021-11-25] MEDS ORDERED: ONDANSETRON 4 MG/2 ML VIAL IVP ONE (08:05)
[2021-11-25 08:40] LABS: Glucose,Whole Blood 143 mg/dL (70-110)
[2021-11-25] MEDS ORDERED: fentaNYL (PF) 50 MCG/ML 2 ML AMP ONE (09:45)
[2021-11-25] MEDS ORDERED: KETAMINE 10 MG/ML 20 ML VIAL ONE (09:45)
[2021-11-25] MEDS ORDERED: MIDAZOLAM 2 MG/2 ML VIAL ONE (09:45)
[2021-11-25] MEDS ORDERED: PROPOFOL 10 MG/ML 20 ML VIAL IV ONE (09:45)
--- NOTE | 2021-11-25 09:47 | P.GSHP ---
History of Present Illness H&P Date: 11/25/21 Chief Complaint: History of colon cancer This is a 61-year-old male presents today for removal of Port-A-Cath. Patient's has a previous History of colon cancer. Past Medical History Past Medical History: Cancer, Diabetes Mellitus, Hyperlipidemia, Hypertension, Pneumonia, Sleep Apnea/CPAP/BIPAP, Thyroid Disorder, Vascular Disorder Additional Past Medical History / Comment(s): Diverticulitis, aortic aneurysm 4.5 cm, covid 02/17/21 received monoclonal antibodies., NIDDM type II, chronic low back pain/R shoulder pain and bilateral knee pain, hypothyroid, colon cancer with colostomy (02/2021) & chemo tx , Bring c-pap machine, states blood clot in arm 3 months ago.gone now per pt. History of Any Multi-Drug Resistant Organisms: None Reported Past Surgical History: Bowel Resection, Hernia Repair, Tonsillectomy Additional Past Surgical History / Comment(s): Colonoscopy, umbilical hernia, R hand cut injury with surgical repair,colostomy, 8 inches of colon removed (02/2021).,colostomy with reversal (11/09) spleenectomy, 28 lymph nodes removed ., port a cath. Past Anesthesia/Blood Transfusion Reactions: Previous Problems w/ Anesthesia Additional Past Anesthesia/Blood Transfusion Reaction / Comment(s): states 2016 hernia repair he was told difficult intubation because he is heavy and has a short neck, he woke up when the anesthesiologist was putting something in his throat that was painful and he broke the velcro wrist strap loose to pull his hand away., States no problems with surgeries after that. Smoking Status: Never smoker - Past Family History Mother Family Medical History: Cancer Additional Family Medical History / Comment(s): Mother of cervical cancer with mets at the age of 66 yrs. Father Family Medical History: Myocardial Infarction (VT) Additional Family Medical History / Comment(s): Father of a VT at the age of 69 yrs. Medications and Allergies Home Medications Medication Instructions Recorded Confirmed Type Levothyroxine Sodium [Synthroid] 125 mcg PO DAILY 01/26/21 11/24/21 History Lisinopril-Hctz 20-12.5 mg 1 tab PO DAILY 01/26/21 11/25/21 History [Zestoretic 20-12.5] Simvastatin [Zocor] 20 mg PO DAILY 01/26/21 11/24/21 History Venlafaxine HCl ER [Effexor XR] 150 mg PO DAILY 01/26/21 11/25/21 History Apixaban [Eliquis] 5 mg PO BID 10/16/21 11/24/21 History Sildenafil Citrate [Viagra] 100 mg PO DIRECTED PRN 10/16/21 11/25/21 History metFORMIN HCL 500 mg PO BID 10/16/21 11/24/21 History Docusate [Colace] 100 mg PO BID #30 capsule 10/23/21 11/25/21 Rx Tamsulosin [Flomax] 0.4 mg PO PC-BRKFST #30 cap 10/26/21 11/24/21 Rx Allergies Allergy/AdvReac Type Severity Reaction Status Date / Time No Known Allergies Allergy Verified 11/25/21 08:06 Surgical - Exam Vital Signs Temp Pulse Resp BP Pulse Ox 96.5 F L 88 18 126/67 100 11/25/21 08:00 11/25/21 08:00 11/25/21 08:00 11/25/21 08:00 11/25/21 08:00 - General well developed, well nourished, no distress - Eyes PERRL - ENT normal pinna - Neck no masses - Respiratory normal expansion - Cardiovascular Rhythm: regular - Abdomen Abdomen: soft, non tender Results - Labs Abnormal Lab Results - Last 24 Hours (Table) 11/25/21 Range/Units 08:30 POC Glucose (mg/dL) 143 H (70-110) mg/dL Assessment and Plan Assessment: History of colon cancer. We'll perform removal of Port-A-Cath.
[2021-11-25] MEDS ORDERED: BUPIVACAIN-EPI 0.25%-1:200,000 30 ML VIAL SQ ONE ×3 (10:04→10:11)
[2021-11-25 10:33] VITALS: TEMP 97
[2021-11-25 10:34] LABS: Glucose,Whole Blood 138 mg/dL (70-110)
[2021-11-25 11:29] VITALS: RESP 20
[2021-11-25 11:52] VITALS: BP 104/76; PULSE 70
--- NOTE | 2021-12-03 09:01 | P.OP ---
Date of Procedure: 11/25/21 Preoperative Diagnosis: History of colon cancer Postoperative Diagnosis: History of colon cancer Procedure(s) Performed: Removal of Port-A-Cath Anesthesia: GURDEEP Surgeon: Ruslan Caldwell Estimated Blood Loss (ml): 5 Pathology: none sent Condition: stable Disposition: PACU Description of Procedure: Patient's placed on the operative table in supine position. He received general endotracheal tube anesthesia. His right chest was prepped and draped in sterile fashion. Tumescent 1% local Xylocaine. The Port-A-Cath was palpated and then left cautery was used to dissect the Port-A-Cath free. Port-A-Cath was removed with the catheter. The skin was then closed interrupted 3-0 Monocryl suture. Dermabond was applied. Patient top she will was sent to recovery room stable condition.
== END 2021-11-25 11:55 | disposition home or self-care (01) ==
LOC: OR 07:49
PROVIDERS: ATTEND Surgery
DX: Z85.038 Personal history of other malignant neoplasm of large intestine (principal); E11.9 Type 2 diabetes mellitus without complications; E78.5 Hyperlipidemia, unspecified; I10 Essential (primary) hypertension; J18.9 Pneumonia, unspecified organism; G47.33 Obstructive sleep apnea (adult) (pediatric); E07.9 Disorder of thyroid, unspecified; I79.8 Other disorders of arteries, arterioles and capillaries in diseases classified elsewhere; K57.92 Diverticulitis of intestine, part unspecified, without perforation or abscess without bleeding; I71.9 Aortic aneurysm of unspecified site, without rupture; M54.9 Dorsalgia, unspecified; M25.511 Pain in right shoulder; G89.29 Other chronic pain; M25.562 Pain in left knee; M25.561 Pain in right knee; E03.9 Hypothyroidism, unspecified; Z93.3 Colostomy status; Z98.84 Bariatric surgery status; Z90.89 Acquired absence of other organs; Z86.16 Personal history of COVID-19; Z98.890 Other specified postprocedural states; Z80.8 Family history of malignant neoplasm of other organs or systems; Z82.49 Family history of ischemic heart disease and other diseases of the circulatory system; Z79.890 Hormone replacement therapy; Z79.899 Other long term (current) drug therapy
CPT/HCPCS: 36590; J2250; J0690; J2405; J3010; J2704; J1644

== ENCOUNTER 2023-04-06 16:52 | Emergency (ER) | payer BC ==
[2023-04-06 17:16] VITALS: TEMP 98.2
--- NOTE | 2023-04-06 17:16 | ED ---
General Adult HPI - General Source: patient, RN notes reviewed Mode of arrival: wheelchair Limitations: no limitations <Nena yLon - Last Filed: 04/06/23 17:15> - History of Present Illness -: hour(s) Severity scale (1-10): 0 Consistency: now resolved Improves with: none Worsens with: none Associated Symptoms: syncope Treatments Prior to Arrival: none <Darnell Shipley - Last Filed: 04/18/23 00:41> - General Chief complaint: Recheck/Abnormal Lab/Rx Stated complaint: sent by PCP-Abn EKG Time Seen by Provider: 04/06/23 17:15 - History of Present Illness Initial comments: 62-year-old male presents to the emergency department for evaluation of abnormal EKG. Patient has a history of colon cancer and is currently being treated with chemotherapy. He reports that he had a syncopal episode and went to his primary care provider to be evaluated, they did an EKG at that time and told him to come to the emergency department for further evaluation. He does have a history of pulmonary embolism for which he is being treated. (Nena Lyon) 's patient is 62-year-old man who was at work this afternoon. He states that he took a drink and had some choking and then a syncopal episode. He states that he recovered, he went to see his primary physician who performed EKG and they saw an extra beat that they wanted him evaluated for here in emergency department. The patient states that he feels at his baseline. He does not currently have any complaints. Patient's adds that she has frequent gagging and choking episodes when he is drinking. (Darnell Shipley) - Related Data Home Medications Medication Instructions Recorded Confirmed Levothyroxine Sodium [Synthroid] 125 mcg PO DAILY 01/26/21 04/06/23 Lisinopril-Hctz 20-12.5 mg 1 tab PO DAILY 01/26/21 04/06/23 [Zestoretic 20-12.5] Simvastatin [Zocor] 20 mg PO DAILY 01/26/21 04/06/23 Apixaban [Eliquis] 5 mg PO DIRECTED 10/16/21 04/06/23 metFORMIN HCL 500 mg PO DAILY 10/16/21 04/06/23 Famotidine [Pepcid] 20 mg PO DAILY PRN 04/06/23 04/06/23 Tamsulosin [Flomax] 0.4 mg PO DAILY 04/06/23 04/06/23 Venlafaxine HCl [Effexor XR] 225 mg PO DAILY 04/06/23 04/06/23 Allergies Allergy/AdvReac Type Severity Reaction Status Date / Time No Known Allergies Allergy Verified 04/06/23 22:41 Review of Systems ROS Other: All systems not noted in ROS Statement are negative. <Nena Lyon - Last Filed: 04/06/23 17:15> ROS Other: All systems not noted in ROS Statement are negative. Constitutional: Denies: fever, chills Respiratory: Denies: cough, dyspnea, wheezes Cardiovascular: Reports: syncope. Denies: chest pain, palpitations Gastrointestinal: Denies: abdominal pain, nausea, vomiting, diarrhea, constipation, melena, hematochezia Genitourinary: Denies: dysuria, hematuria Musculoskeletal: Denies: back pain Skin: Denies: rash Neurological: Denies: headache, weakness <Darnell Shipley - Last Filed: 04/18/23 00:41> ROS Statement: Those systems with pertinent positive or pertinent negative responses have been documented in the HPI. Past Medical History Past Medical History: Cancer, Diabetes Mellitus, Hyperlipidemia, Hypertension, Pneumonia, Pulmonary Embolus (PE), Sleep Apnea/CPAP/BIPAP, Thyroid Disorder, Vascular Disorder Additional Past Medical History / Comment(s): Diverticulitis, aortic aneurysm 4.5 cm, covid 02/17/21 received monoclonal antibodies., NIDDM type II, chronic low back pain/R shoulder pain and bilateral knee pain, hypothyroid, colon cancer with colostomy (02/2021) & chemo tx , Bring c-pap machine, states blood clot in arm 3 months ago.gone now per pt. History of Any Multi-Drug Resistant Organisms: None Reported Past Surgical History: Bowel Resection, Hernia Repair, Tonsillectomy Additional Past Surgical History / Comment(s): Colonoscopy, umbilical hernia, R hand cut injury with surgical repair,colostomy, 8 inches of colon removed (02/2021).,colostomy with reversal (11/09) spleenectomy, 28 lymph nodes removed ., port a cath. Past Anesthesia/Blood Transfusion Reactions: Previous Problems w/ Anesthesia Additional Past Anesthesia/Blood Transfusion Reaction / Comment(s): states 2016 hernia repair he was told difficult intubation because he is heavy and has a short neck, he woke up when the anesthesiologist was putting something in his throat that was painful and he broke the velcro wrist strap loose to pull his hand away., States no problems with surgeries after that. Past Psychological History: Anxiety Smoking Status: Never smoker Past Alcohol Use History: None Reported Past Drug Use History: None Reported - Past Family History Mother Family Medical History: Cancer Additional Family Medical History / Comment(s): Mother of cervical cancer with mets at the age of 66 yrs. Father Family Medical History: Myocardial Infarction (AL) Additional Family Medical History / Comment(s): Father of a AL at the age of 69 yrs. <Nena Lyon - Last Filed: 04/06/23 17:15> General Exam Limitations: no limitations <Nena Lyon - Last Filed: 04/06/23 17:15> Limitations: no limitations General appearance: alert, in no apparent distress Head exam: Present: atraumatic, normocephalic Eye exam: Present: normal appearance. Absent: scleral icterus, conjunctival injection ENT exam: Present: normal oropharynx Neck exam: Present: normal inspection Respiratory exam: Present: normal lung sounds bilaterally. Absent: respiratory distress, wheezes, rales, rhonchi, stridor Cardiovascular Exam: Present: regular rate, normal rhythm, normal heart sounds. Absent: systolic murmur, diastolic murmur, rubs, gallop GI/Abdominal exam: Present: soft. Absent: distended, tenderness, guarding, rebound, rigid, mass Extremities exam: Present: normal inspection, normal capillary refill. Absent: pedal edema, calf tenderness Back exam: Present: normal inspection. Absent: CVA tenderness (R), CVA tenderness (L) Neurological exam: Present: alert, oriented X3. Absent: motor sensory deficit Skin exam: Present: warm, dry, intact, normal color. Absent: rash <Darnell Shipley - Last Filed: 04/18/23 00:41> - General Exam Comments Initial Comments: Visual Physical Exam Vital signs reviewed General: Well-appearing, nontoxic, no acute distress. Head: Normocephalic, atraumatic Eyes: PERRLA, EOMI ENT: Airway patent Chest: Nonlabored breathing Skin: No visual rash, normal skin tone Neuro: Alert and oriented 3 Musculoskeletal: No gross abnormalities (Nena Lyon) Course Vital Signs 04/06/23 04/06/23 04/06/23 17:06 21:44 22:44 Temperature 98.2 F Pulse Rate 100 79 74 Respiratory 18 20 18 Rate Blood Pressure 148/58 143/86 149/77 O2 Sat by Pulse 93 L 95 93 L Oximetry EKG Findings - EKG Results: EKG: interpreted by ERMD, sinus rhythm (With occasional as premature supraventricular complex), normal axis, normal ST/T - Blocks, Mor[place], Hypertrophy, ST Abn: AV and intraventricular conduction: 1 AV block QRS axis and voltage: low voltage (<0.5 MV total QRS and <1.0 MV in each precordial lead) <Darnell Shipley - Last Filed: 04/18/23 00:41> Medical Decision Making <Nena Lyon - Last Filed: 04/06/23 17:15> - Lab Data Result diagrams: 04/06/23 17:32 04/06/23 17:32 <Darnell Shipley - Last Filed: 04/18/23 00:41> - Medical Decision Making Quick note preformed by Nena Lyon PA-C (Nena Lyon) The patient had chest x-ray which I interpreted as showing small effusions. Was pt. sent in by a medical professional or institution ([facility], PUBLIC ADMINISTRATION TEACHER, urgent care, hospital, or long term...) When possible be specific @ -[No] Did you speak to anyone other than the patient for history (EMS, parent, family, police, friend...)? What history was obtained from this source @ -[No] Did you review nursing and triage notes (agree or disagree)? Why? @ -[I reviewed and agree with nursing and triage notes] Were old charts reviewed (outside hosp., previous admission, EMS record, old EKG, old radiological studies, urgent care reports/EKG's, long term records)? Report findings @ -[No old charts were reviewed] Differential Diagnosis (chest pain, altered mental status, abdominal pain women, abdominal pain men, vaginal bleeding, weakness, fever, dyspnea, syncope, headache, dizziness, GI bleed, back pain, seizure, CVA, palpatations, mental health, musculoskeletal)? @ -[Differential Syncope: Valvular disease, hypertrophic cardiomyopathy, pulmonary embolism, tamponade, tachycardia, bradycardia, AL, hypovolemia, hemorrhage, dissection, anemia, intracranial hemorrhage, seizure, hypoglycemia, carbon monoxide poisoning, this is not meant to be an all-inclusive list. EKG interpreted by me (3pts min.). @ -[I interpreted as above] X-rays interpreted by me (1pt min.). @ -[None done] CT interpreted by me (1pt min.). @ -[None done] U/S interpreted by me (1pt. min.). @ -[None done] What testing was considered but not performed or refused? (CT, X-rays, U/S, labs)? Why? @ -[None] What meds were considered but not given or refused? Why? @ -[None] Did you discuss the management of the patient with other professionals (prof essionals i.e. , PA, PUBLIC ADMINISTRATION TEACHER, lab, RT, psych nurse, psychotherapist social worker, java software, teacher, safety officer, manager of case)? Give summary @ -[No] Was smoking cessation discussed for >3mins.? @ -[No] Was critical care preformed (if so, how long)? @ -[No] Were there social determinants of health that impacted care today? How? (Homelessness, low income, unemployed, alcoholism, drug addiction, transportation, low edu. Level, literacy, decrease access to med. care, intermediate, rehab)? @ -[No] Was there de-escalation of care discussed even if they declined (Discuss DNR or withdrawal of care, Hospice)? DNR status @ -[No] What co-morbidities impacted this encounter? (DM, HTN, Smoking, COPD, CAD, Cancer, CVA, ARF, Chemo, Hep., AIDS, mental health diagnosis, sleep apnea, morbid obesity)? @ -[None] Was patient admitted / discharged? Hospital course, mention meds given and route, prescriptions, significant lab abnormalities, going to OR and other pertinent info. @ -[hospital course] Undiagnosed new problem with uncertain prognosis? @ -[No] Drug Therapy requiring intensive monitoring for toxicity (Heparin, Nitro, Insulin, Cardizem)? @ -[No] Were any procedures done? @ -[No] Diagnosis/symptom? @ -[Acute syncope Acute, or Chronic, or Acute on Chronic? @ -[Acute Uncomplicated (without systemic symptoms) or Complicated (systemic symptoms)? @ -[Uncomplicated Side effects of treatment? @ -[No] Exacerbation, Progression, or Severe Exacerbation? @ -[No] Poses a threat to life or bodily function? How? (Chest pain, USA, AL, pneumonia, PE, COPD, DKA, ARF, appy, cholecystitis, CVA, Diverticulitis, Homicidal, Suicidal, threat to staff... and all critical care pts) @ -[No] (Darnell Shipley) - Lab Data Lab Results 04/06/23 04/06/23 04/06/23 Range/Units 17:32 17:32 17:32 WBC 8.9 (3.8-10.6) k/uL RBC 5.00 (4.30-5.90) m/uL Hgb 15.9 (13.0-17.5) gm/dL Hct 51.5 (39.0-53.0) % MCV 103.0 H (80.0-100.0) fL MCH 31.8 (25.0-35.0) pg MCHC 30.9 L (31.0-37.0) g/dL RDW 16.8 H (11.5-15.5) % Plt Count 483 H (150-450) k/uL MPV 8.7 Neutrophils % 68 % Lymphocytes % 18 % Monocytes % 12 % Eosinophils % 0 % Basophils % 0 % Neutrophils # 6.0 (1.3-7.7) k/uL Lymphocytes # 1.6 (1.0-4.8) k/uL Monocytes # 1.0 (0-1.0) k/uL Eosinophils # 0.0 (0-0.7) k/uL Basophils # 0.0 (0-0.2) k/uL Hypochromasia Marked Anisocytosis Slight Macrocytosis Moderate PT 11.7 (10.0-12.5) sec INR 1.1 (<1.2) APTT 24.5 (22.0-30.0) sec Sodium 137 (137-145) mmol/L Potassium 5.2 H (3.5-5.1) mmol/L Chloride 101 (98-107) mmol/L Carbon Dioxide 28 (22-30) mmol/L Anion Gap 8 mmol/L BUN 18 (9-20) mg/dL Creatinine 0.65 L (0.66-1.25) mg/dL Est GFR (CKD-EPI)AfAm >90 (>60 ml/min/1.73 sqM) Est GFR (CKD-EPI)NonAf >90 (>60 ml/min/1.73 sqM) Glucose 175 H (74-99) mg/dL Calcium 9.1 (8.4-10.2) mg/dL Total Bilirubin 0.6 (0.2-1.3) mg/dL AST 30 (17-59) U/L ALT 28 (4-49) U/L Alkaline Phosphatase 61 (38-126) U/L Troponin I (0.000-0.034) ng/mL NT-Pro-B Natriuret Pep pg/mL Total Protein 7.1 (6.3-8.2) g/dL Albumin 3.8 (3.5-5.0) g/dL 04/06/23 04/06/23 Range/Units 17:32 17:32 WBC (3.8-10.6) k/uL RBC (4.30-5.90) m/uL Hgb (13.0-17.5) gm/dL Hct (39.0-53.0) % MCV (80.0-100.0) fL MCH (25.0-35.0) pg MCHC (31.0-37.0) g/dL RDW (11.5-15.5) % Plt Count (150-450) k/uL MPV Neutrophils % % Lymphocytes % % Monocytes % % Eosinophils % % Basophils % % Neutrophils # (1.3-7.7) k/uL Lymphocytes # (1.0-4.8) k/uL Monocytes # (0-1.0) k/uL Eosinophils # (0-0.7) k/uL Basophils # (0-0.2) k/uL Hypochromasia Anisocytosis Macrocytosis PT (10.0-12.5) sec INR (<1.2) APTT (22.0-30.0) sec Sodium (137-145) mmol/L Potassium (3.5-5.1) mmol/L Chloride (98-107) mmol/L Carbon Dioxide (22-30) mmol/L Anion Gap mmol/L BUN (9-20) mg/dL Creatinine (0.66-1.25) mg/dL Est GFR (CKD-EPI)AfAm (>60 ml/min/1.73 sqM) Est GFR (CKD-EPI)NonAf (>60 ml/min/1.73 sqM) Glucose (74-99) mg/dL Calcium (8.4-10.2) mg/dL Total Bilirubin (0.2-1.3) mg/dL AST (17-59) U/L ALT (4-49) U/L Alkaline Phosphatase (38-126) U/L Troponin I <0.012 (0.000-0.034) ng/mL NT-Pro-B Natriuret Pep 208 pg/mL Total Protein (6.3-8.2) g/dL Albumin (3.5-5.0) g/dL Disposition <Nena Lyon - Last Filed: 04/06/23 17:15> Is patient prescribed a controlled substance at d/c from ED?: No <Darnell Shipley - Last Filed: 04/18/23 00:41> Clinical Impression: Syncope, Choking episode Disposition: HOME SELF-CARE Condition: Fair Instructions (If sedation given, give patient instructions): Syncope (ED) Additional Instructions: As we discussed, follow-up with her primary physician to have further studies related to swallowing and esophageal motility Referrals: Leopoldo Price MD [Primary Care Provider] - 1-2 days Jay Cifuentes MD [STAFF PHYSICIAN] - 1-2 days
--- NOTE | 2023-04-06 17:51 | XR ---
EXAMINATION TYPE: XR chest 2V DATE OF EXAM: 04/06/2023 5:44 PM CLINICAL INDICATION:Male, 62 years old with history of syncope; [facility] COMPARISON: Chest radiographs from 10/23/2021. TECHNIQUE: XR chest 2V Frontal and lateral views of the chest. FINDINGS: Lungs/Pleura: There is no evidence of pleural effusion, focal consolidation, or pneumothorax. Pulmonary vascularity: Pulmonary vascular congestion. Heart/mediastinum: Cardiomediastinal silhouette is enlarged and stable. Musculoskeletal: No acute osseous pathology. Other findings: None Lines/Tubes: [id number] projecting over the left hemithorax with distal tip at the cavoatrial junction. IMPRESSION: Cardiomegaly, pulmonary vascular congestion and bilateral pleural effusions. Correlate with BNP for c ongestive heart failure.
[2023-04-06 18:05] LABS: Anisocytosis Slight; Basophils % (A) 0 %; Eosinophils % (A) 0 %; HCT 51.5 % (39.0-53.0); HGB 15.9 gm/dL (13.0-17.5); Hypochromasia Marked; Lymphocytes # (A) 1.6 k/uL (1.0-4.8); Lymphocytes % (A) 18 %; MCH 31.8 pg (25.0-35.0); MCHC 30.9 g/dL (31.0-37.0); Macrocytosis Moderate; Mean Platelet Volume 8.7; Monocytes % (A) 12 %; Neutrophils % (A) 68 %; Platelet Count 483 k/uL (150-450); RDW 16.8 % (11.5-15.5); WBC 8.9 k/uL (3.8-10.6)
[2023-04-06 18:14] LABS: INR 1.1 (<1.2); Partial Thromboplastin Time 24.5 sec (22.0-30.0); Prothrombin Time 11.7 sec (10.0-12.5)
[2023-04-06 18:16] LABS: ALT 28 U/L (4-49); AST 30 U/L (17-59); African American GFR (CKD) >90 (>60 ml/min/1.73 sqM); Albumin 3.8 g/dL (3.5-5.0); Alkaline Phosphatase 61 U/L (38-126); Anion Gap 8 mmol/L; Blood Urea Nitrogen 18 mg/dL (9-20); Calcium 9.1 mg/dL (8.4-10.2); Carbon Dioxide 28 mmol/L (22-30); Chloride 101 mmol/L (98-107); Glucose 175 mg/dL (74-99); Non-African American GFR(CKD) >90 (>60 ml/min/1.73 sqM); Potassium 5.2 mmol/L (3.5-5.1); Sodium 137 mmol/L (137-145); Total Bilirubin 0.6 mg/dL (0.2-1.3); Total Protein 7.1 g/dL (6.3-8.2)
[2023-04-06 22:51] VITALS: BP 149/77; PULSE 74; RESP 18
== END 2023-04-06 23:18 | disposition home or self-care (01) ==
LOC: EC 16:52
DX: R55 Syncope and collapse (principal); R09.89 Other specified symptoms and signs involving the circulatory and respiratory systems; E11.9 Type 2 diabetes mellitus without complications; E78.5 Hyperlipidemia, unspecified; G47.30 Sleep apnea, unspecified; I44.0 Atrioventricular block, first degree; E03.9 Hypothyroidism, unspecified; I11.0 Hypertensive heart disease with heart failure; I50.9 Heart failure, unspecified; F41.9 Anxiety disorder, unspecified; Z79.890 Hormone replacement therapy; Z79.899 Other long term (current) drug therapy; Z79.84 Long term (current) use of oral hypoglycemic drugs; Z79.01 Long term (current) use of anticoagulants; Z86.16 Personal history of COVID-19
CPT/HCPCS: 36415; 71046; 80053; 83880; 84484; 85025; 85610; 85730; 93005; 99284

== ENCOUNTER 2023-04-18 14:51 | Inpatient (IN) | payer BC ==
--- NOTE | 2023-04-18 15:32 | ED ---
SOB HPI - General Source: patient, RN notes reviewed Mode of arrival: ambulatory Limitations: no limitations - History of Present Illness MD Complaint: shortness of breath <Anahy Porras - Last Filed: 04/18/23 15:33> <Tacho Carranza - Last Filed: 04/18/23 18:49> - General Stated Complaint: MARY-tumor on lung Time Seen by Provider: 04/18/23 15:28 - History of Present Illness Initial Comments: This is a 62-year-old male who presents to the emergency department for difficulty breathing. Patient has a PMHx of CHF and reports increasing shortness of breath, especially with exertion beginning today. Denies any associated chest pain. (Anahy Porras) Dictation was produced using [employer] dictation software. please excuse any grammatical, word or spelling errors. Chief Complaint: 62-year-old male presents to the emergency department with shortness of breath History of Present Illness: Patient 62-year-old male presents emergency department with shortness of breath. Patient 3 weeks ago was diagnosed with pulmonary embolism. Has been on Eliquis. Patient states that since around that time he has been very dyspneic. He was recently in the hospital and discharged and did follow-up with his primary care doctor. Patient suspects that primary care doctor thought that some of his medications made him dyspneic so some of his medications were adjusted. States that he improved slightly however still continues to be significantly dyspneic. States that he feels worse when he exerts himself and even when he goes outside. Patient does not have any history of COPD. He does have a history of pneumonia. No history of asthma. Denies any fevers. He states that he did have a cough that resolved. No sore throat runny nose. No obvious sick contacts. No chest pain. The ROS documented in this emergency department record has been reviewed and confirmed by me. Those systems with pertinent positive or negative responses have been documented in the HPI. All other systems are other negative and/or noncontributory. (Tacho Carranza) - Related Data Home Medications Medication Instructions Recorded Confirmed Levothyroxine Sodium [Synthroid] 125 mcg PO DAILY 01/26/21 04/18/23 Simvastatin [Zocor] 20 mg PO DAILY 01/26/21 04/18/23 Apixaban [Eliquis] 5 mg PO BID 10/16/21 04/18/23 metFORMIN HCL 500 mg PO DAILY 10/16/21 04/18/23 Famotidine [Pepcid] 20 mg PO DAILY PRN 04/06/23 04/18/23 Tamsulosin [Flomax] 0.4 mg PO DAILY 04/06/23 04/18/23 Venlafaxine HCl [Effexor XR] 225 mg PO DAILY 04/06/23 04/18/23 Lisinopril-Hctz 10-12.5 mg 1 tab PO DAILY 04/18/23 04/18/23 [Zestoretic 10-12.5] Allergies Allergy/AdvReac Type Severity Reaction Status Date / Time No Known Allergies Allergy Verified 04/18/23 18:01 Review of Systems ROS Other: All systems not noted in ROS Statement are negative. <Anahy Porras - Last Filed: 04/18/23 15:33> ROS Other: All systems not noted in ROS Statement are negative. <Tacho Carranza - Last Filed: 04/18/23 18:49> ROS Statement: Those systems with pertinent positive or pertinent negative responses have been documented in the HPI. Past Medical History Past Medical History: Cancer, Diabetes Mellitus, Hyperlipidemia, Hypertension, Pneumonia, Pulmonary Embolus (PE), Sleep Apnea/CPAP/BIPAP, Thyroid Disorder, Vascular Disorder Additional Past Medical History / Comment(s): Diverticulitis, aortic aneurysm 4.5 cm, covid 02/17/21 received monoclonal antibodies., NIDDM type II, chronic low back pain/R shoulder pain and bilateral knee pain, hypothyroid, colon cancer with colostomy (02/2021) & chemo tx , Bring c-pap machine, states blood clot in arm 3 months ago.gone now per pt. History of Any Multi-Drug Resistant Organisms: None Reported Past Surgical History: Bowel Resection, Hernia Repair, Tonsillectomy Additional Past Surgical History / Comment(s): Colonoscopy, umbilical hernia, R hand cut injury with surgical repair,colostomy, 8 inches of colon removed (02/2021).,colostomy with reversal (11/09) spleenectomy, 28 lymph nodes removed ., port a cath. Past Anesthesia/Blood Transfusion Reactions: Previous Problems w/ Anesthesia Additional Past Anesthesia/Blood Transfusion Reaction / Comment(s): states 2016 hernia repair he was told difficult intubation because he is heavy and has a short neck, he woke up when the anesthesiologist was putting something in his throat that was painful and he broke the velcro wrist strap loose to pull his hand away., States no problems with surgeries after that. Past Psychological History: Anxiety Smoking Status: Never smoker Past Alcohol Use History: None Reported Past Drug Use History: None Reported - Past Family History Mother Family Medical History: Cancer Additional Family Medical History / Comment(s): Mother of cervical cancer with mets at the age of 66 yrs. Father Family Medical History: Myocardial Infarction ([place]) Additional Family Medical History / Comment(s): Father of a [place] at the age of 69 yrs. <Anahy Porras - Last Filed: 04/18/23 15:33> General Exam Limitations: no limitations <Anahy Porras - Last Filed: 04/18/23 15:33> <Tacho Carranza - Last Filed: 04/18/23 18:49> - General Exam Comments Initial Comments: Visual Physical Exam Vital signs reviewed General: Well-appearing, nontoxic, no acute distress. Head: Normocephalic, atraumatic Eyes: PERRLA, EOMI ENT: Airway patent Chest: Nonlabored breathing Skin: No visual rash, normal skin tone Neuro: Alert and oriented 3 Musculoskeletal: No gross abnormalities (Anahy Porras) PHYSICAL EXAM: General Impression: Alert and oriented x3, dyspneic HEENT: Normocephalic atraumatic, extra-ocular movements intact, pupils equal and reactive to light bilaterally, mucous membranes moist. Cardiovascular: Heart regular rate and rhythm Chest: 2 word sentences, mild tachypnea, diffuse wheezing Abdomen: abdomen soft, non-tender, non-distended, no organomegaly Musculoskeletal: Pulses present and equal in all extremities, no peripheral edema Motor: no focal deficits noted Neurological: CN II-XII grossly intact, no focal motor or sensory deficits noted Skin: Intact with no visualized rashes Psych: Normal affect and mood (Tacho Carranza) Course Vital Signs 04/18/23 04/18/23 04/18/23 14:58 16:59 17:00 Temperature 98 F Pulse Rate 112 H 116 H 118 H Respiratory 26 H 33 H Rate Blood Pressure 116/85 109/68 O2 Sat by Pulse 94 L 94 L Oximetry 04/18/23 04/18/23 04/18/23 17:25 17:30 18:00 Temperature Pulse Rate 118 H 118 H 114 H Respiratory 33 H 16 Rate Blood Pressure 90/52 90/47 O2 Sat by Pulse 95 94 L Oximetry 04/18/23 04/18/23 18:27 18:30 Temperature Pulse Rate 124 H Respiratory 30 H 26 H Rate Blood Pressure 100/48 O2 Sat by Pulse 95 Oximetry Medical Decision Making <Anahy Porras - Last Filed: 04/18/23 15:33> - Lab Data Result diagrams: 04/18/23 15:18 04/18/23 15:18 <Tacho Carranza - Last Filed: 04/18/23 18:49> - Medical Decision Making I performed the QuickNote portion of this chart. Signed Anahy Porras PA-C. (Anahy Porras) My EKG interpretation: Ventricular rate 121, sinus tachycardia,. 235, cures 84, QTc 448. No HI prolongation, no QTC prolongation, no ST or T-wave changes noted. Overall, this EKG is unremarkable Was pt. sent in by a medical professional or institution ([facility], [employer], urgent care, hospital, or half-way...) When possible be specific @ -No Did you speak to anyone other than the patient for history (EMS, parent, family, police, friend...)? What history was obtained from this source @ -No Did you review nursing and triage notes (agree or disagree)? Why? @ -I reviewed and agree with nursing and triage notes Were old charts reviewed (outside hosp., previous admission, EMS record, old EKG , old radiological studies, urgent care reports/EKG's, half-way records)? Report findings @ -No old charts were reviewed Differential Diagnosis (chest pain, altered mental status, abdominal pain women, abdominal pain men, vaginal bleeding, musculoskeletal, weakness, fever, dyspnea, syncope, headache, dizziness, GI bleed, back pain, seizure, CVA, palpatations, mental health)? @ -Differential Dyspnea: Coronary syndrome, arrhythmia, tamponade, asthma, COPD, pulmonary embolism, pneumonia, pneumothorax, pulmonary effusion, anaphylaxis, diabetic ketoacidosis, flailed chest, pulmonary contusion, diaphragmatic rupture, anemia, neuromuscular, this is not meant to be an all-inclusive list. EKG interpreted by me (3pts min.). @ -See above X-rays interpreted by me (1pt min.). @ -X-ray of the chest shows no acute processes CT interpreted by me (1pt min.). @ -None done U/S interpreted by me (1pt. min.). @ -None done What testing was considered but not performed or refused? (CT, X-rays, U/S, labs)? Why? @ -CT angiography was considered however patient has known pulmonary embolism. What meds were considered but not given or refused? Why? @ -None Did you discuss the management of the patient with other professionals (professionals i.e. , PA, [employer], lab, RT, psych nurse, social service liaison, corporation lawyer, teacher, weapons electrical engineering officer, caseworker protective services)? Give summary @ -Patient case discussed with hospitalist for admission Was smoking cessation discussed for >3mins.? @ -No Was critical care preformed (if so, how long)? @ -No Were there social determinants of health that impacted care today? How? (Homelessness, low income, unemployed, alcoholism, drug addiction, transportation, low edu. Level, literacy, decrease access to med. care, [facility], rehab)? @ -No Was there de-escalation of care discussed even if they declined (Discuss DNR or withdrawal of care, Hospice)? DNR status @ -No What co-morbidities impacted this encounter? (DM, HTN, Smoking, COPD, CAD, Cancer, CVA, ARF, Chemo, Hep., AIDS, mental health diagnosis, sleep apnea, morbid obesity)? @ -History of colon cancer with metastatic disease to the lungs Was patient admitted / discharged? Hospital course, mention meds given and rout e, prescriptions, significant lab abnormalities, going to OR and other pertinent info. @ -62-year-old male with past medical history of colon cancer metastatic disease to the lungs presents to the emergency department for worsening dyspnea. He was diagnosed with pulmonary embolism 3 weeks ago has been on Eliquis. States that his breathing is not really improving. He does appear to be dyspneic at the bedside he is also tachycardic. Vital signs within acceptable limits. Laboratory evaluation obtained. Labs are within acceptable limits. Troponin is negative. Patient currently stable at the bedside. He is still however tachycardic to the 1 teens. Patient will be admitted with consultation to pulmonology Undiagnosed new problem with uncertain prognosis? @ -No Drug Therapy requiring intensive monitoring for toxicity (Heparin, Nitro, Insulin, Cardizem)? @ -No Were any procedures done? @ -No Diagnosis/symptom? Acute, or Chronic, or Acute on Chronic? Uncomplicated (without systemic symptoms) or Complicated (systemic symptoms)? @ -Respiratory failure Side effects of treatment? @ -No Exacerbation, Progression, or Severe Exacerbation? @ -No Poses a threat to life or bodily function? How? (Chest pain, [place], [place], pneumonia, PE, COPD, DKA, ARF, appy, cholecystitis, CVA, Diverticulitis, Homicidal, Suicidal, threat to staff... and all critical care pts) @ -yes (Tacho Carranza) - Lab Data Lab Results 04/18/23 04/18/23 04/18/23 Range/Units 15:18 15:18 15:18 WBC 12.1 H (3.8-10.6) k/uL RBC 5.23 (4.30-5.90) m/uL Hgb 16.6 (13.0-17.5) gm/dL Hct 53.4 H (39.0-53.0) % MCV 102.0 H (80.0-100.0) fL MCH 31.8 (25.0-35.0) pg MCHC 31.2 (31.0-37.0) g/dL RDW 17.8 H (11.5-15.5) % Plt Count 407 (150-450) k/uL MPV 9.2 Neutrophils % 85 % Lymphocytes % 7 % Monocytes % 7 % Eosinophils % 0 % Basophils % 0 % Neutrophils # 10.2 H (1.3-7.7) k/uL Lymphocytes # 0.8 L (1.0-4.8) k/uL Monocytes # 0.9 (0-1.0) k/uL Eosinophils # 0.1 (0-0.7) k/uL Basophils # 0.0 (0-0.2) k/uL Hypochromasia Moderate Anisocytosis Slight Macrocytosis Moderate PT 12.5 (10.0-12.5) sec INR 1.2 H (<1.2) APTT 25.8 (22.0-30.0) sec Sodium 134 L (137-145) mmol/L Potassium 5.7 H (3.5-5.1) mmol/L Chloride 97 L (98-107) mmol/L Carbon Dioxide 26 (22-30) mmol/L Anion Gap 11 mmol/L BUN 11 (9-20) mg/dL Creatinine 0.68 (0.66-1.25) mg/dL Est GFR (CKD-EPI)AfAm >90 (>60 ml/min/1.73 sqM) Est GFR (CKD-EPI)NonAf >90 (>60 ml/min/1.73 sqM) Glucose 178 H (74-99) mg/dL Calcium 8.7 (8.4-10.2) mg/dL Total Bilirubin 1.1 (0.2-1.3) mg/dL AST 56 (17-59) U/L ALT 30 (4-49) U/L Alkaline Phosphatase 50 (38-126) U/L Troponin I (0.000-0.034) ng/mL NT-Pro-B Natriuret Pep 58 pg/mL Total Protein 7.5 (6.3-8.2) g/dL Albumin 4.0 (3.5-5.0) g/dL 04/18/23 Range/Units 15:18 WBC (3.8-10.6) k/uL RBC (4.30-5.90) m/uL Hgb (13.0-17.5) gm/dL Hct (39.0-53.0) % MCV (80.0-100.0) fL MCH (25.0-35.0) pg MCHC (31.0-37.0) g/dL RDW (11.5-15.5) % Plt Count (150-450) k/uL MPV Neutrophils % % Lymphocytes % % Monocytes % % Eosinophils % % Basophils % % Neutrophils # (1.3-7.7) k/uL Lymphocytes # (1.0-4.8) k/uL Monocytes # (0-1.0) k/uL Eosinophils # (0-0.7) k/uL Basophils # (0-0.2) k/uL Hypochromasia Anisocytosis Macrocytosis PT (10.0-12.5) sec INR (<1.2) APTT (22.0-30.0) sec Sodium (137-145) mmol/L Potassium (3.5-5.1) mmol/L Chloride (98-107) mmol/L Carbon Dioxide (22-30) mmol/L Anion Gap mmol/L BUN (9-20) mg/dL Creatinine (0.66-1.25) mg/dL Est GFR (CKD-EPI)AfAm (>60 ml/min/1.73 sqM) Est GFR (CKD-EPI)NonAf (>60 ml/min/1.73 sqM) Glucose (74-99) mg/dL Calcium (8.4-10.2) mg/dL Total Bilirubin (0.2-1.3) mg/dL AST (17-59) U/L ALT (4-49) U/L Alkaline Phosphatase (38-126) U/L Troponin I <0.012 (0.000-0.034) ng/mL NT-Pro-B Natriuret Pep pg/mL Total Protein (6.3-8.2) g/dL Albumin (3.5-5.0) g/dL Disposition <Anahy Porras - Last Filed: 04/18/23 15:33> Decision Time: 18:48 <Tacho Carranza - Last Filed: 04/18/23 18:49> Clinical Impression: Respiratory failure Disposition: ADMITTED IP TO THIS HOSP Condition: Fair Referrals: Leopoldo Price MD [Primary Care Provider] - 1-2 days
[2023-04-18] MEDS ORDERED: ALBUTEROL NEBULIZED 2.5 MG/3 ML INHALATION STA (16:24)
[2023-04-18] MEDS ORDERED: IPRATROPIUM 0.5 MG/2.5 ML NEBU INHALATION STA (16:24)
[2023-04-18] MEDS ORDERED: DEXAMETHASONE SOD PHOSPHATE 10 MG/ML 1 ML VIAL IV STA (16:24)
--- NOTE | 2023-04-18 16:25 | XR ---
EXAMINATION TYPE: XR chest 2V DATE OF EXAM: 04/18/2023 COMPARISON: 04/06/23 HISTORY: Shortness of breath TECHNIQUE: Frontal and lateral views of the chest are obtained. FINDINGS: Scattered senescent parenchymal changes noted. Hyperinflation compatible with COPD. No evidence for infiltrate. No evidence for atelectasis. Heart size is stable. Mediastinal structures are stable and grossly unremarkable. No evidence for hilar prominence. Degenerative changes dorsal spine. IMPRESSION: 1. No evidence for acute pulmonary disease.
[2023-04-18 17:30] LABS: Anisocytosis Slight; Basophils % (A) 0 %; Eosinophils # (A) 0.1 k/uL (0-0.7); Eosinophils % (A) 0 %; HCT 53.4 % (39.0-53.0); HGB 16.6 gm/dL (13.0-17.5); Hypochromasia Moderate; Lymphocytes # (A) 0.8 k/uL (1.0-4.8); Lymphocytes % (A) 7 %; MCH 31.8 pg (25.0-35.0); MCHC 31.2 g/dL (31.0-37.0); Macrocytosis Moderate; Mean Platelet Volume 9.2; Monocytes # (A) 0.9 k/uL (0-1.0); Monocytes % (A) 7 %; Neutrophils # (A) 10.2 k/uL (1.3-7.7); Neutrophils % (A) 85 %; Platelet Count 407 k/uL (150-450); RBC 5.23 m/uL (4.30-5.90); RDW 17.8 % (11.5-15.5); WBC 12.1 k/uL (3.8-10.6)
[2023-04-18 17:42] LABS: INR 1.2 (<1.2); Partial Thromboplastin Time 25.8 sec (22.0-30.0); Prothrombin Time 12.5 sec (10.0-12.5)
[2023-04-18 17:48] LABS: ALT 30 U/L (4-49); AST 56 U/L (17-59); African American GFR (CKD) >90 (>60 ml/min/1.73 sqM); Alkaline Phosphatase 50 U/L (38-126); Anion Gap 11 mmol/L; Blood Urea Nitrogen 11 mg/dL (9-20); Calcium 8.7 mg/dL (8.4-10.2); Carbon Dioxide 26 mmol/L (22-30); Chloride 97 mmol/L (98-107); Glucose 178 mg/dL (74-99); Non-African American GFR(CKD) >90 (>60 ml/min/1.73 sqM); Sodium 134 mmol/L (137-145); Total Bilirubin 1.1 mg/dL (0.2-1.3); Total Protein 7.5 g/dL (6.3-8.2)
[2023-04-18 17:55] LABS: NT-Pro-B-Type Natriuretic Pept 58 pg/mL
[2023-04-18 17:59] LABS: Potassium 5.7 mmol/L (3.5-5.1)
[2023-04-18] MEDS ORDERED: NALOXONE 0.4 MG/ML 1 ML VIAL IV PRN (18:39)
[2023-04-18] MEDS: SODIUM CHLORIDE 0.9% 1,000 ML IV SCH (19:02)
[2023-04-18] MEDS: ACETAMINOPHEN TAB 325 MG TAB PO PRN (23:06)
--- NOTE | 2023-04-19 04:35 | CT ---
EXAM: CT Angiography Chest With Intravenous Contrast CLINICAL HISTORY: Recent PE dx; syncopal events; dyspnea TECHNIQUE: Axial computed tomographic angiography images of the chest with intravenous contrast. CTDI is 72.6 mGy and DLP is 1623 mGy-cm. This CT exam was performed using one or more of the following dose reduction techniques: automated exposure control, adjustment of the mA and/or kV according to patient size, and/or use of iterative reconstruction technique. 3D and MIP reconstructed images were created and reviewed. COMPARISON: 03/04/2021. FINDINGS: Pulmonary arteries: Limited by relatively weak contrast bolus within the pulmonary arteries. Filling defects in the right greater than left lower lobe pulmonary branches consistent with pulmonary emboli. Aorta: 4.5 cm AP diameter ascending thoracic aortic aneurysm. No aortic dissection. Lungs: Lingular scarring or Consolidation. Mild bibasilar atelectasis. Pleural space: No pleural effusion. No pneumothorax. Heart: No cardiomegaly. No pericardial effusion. No evidence of RV dysfunction. Atherosclerotic artery atherosclerotic calcifications. Bones/joints: No acute fracture. Degenerative changes of the spine Soft tissues: Unremarkable. Abdomen: Partially visualized right ventral upper abdominal bowel containing hernia. Mesenteric infiltration in the right ventral upper abdominal mesenteric fat. Fatty replaced pancreas. IMPRESSION: Right greater left basilar pulmonary filling defect/emboli. No recent pulmonary angiogram to assess for chronicity. No evidence for right heart strain. 4.5 cm AP diameter ascending aortic aneurysm. Lingular scarring versus consolidation. Mild bibasilar atelectasis. Partially visualized right ventral upper abdominal bowel containing hernia. Mesenteric infiltration in the right ventral upper abdominal mesenteric fat, recommend comparison with prior studies. <MYCVCSECTION> Communications: 04/19/23 04:47 Call Doctor Regarding Pulmonary Embolism, called Dr. Wiseman on 04/19 04:47 (-05:00)
--- NOTE | 2023-04-19 05:05 | P.CNPUL ---
History of Present Illness Consult date: 04/19/23 Requesting physician: Tacho Carranza Reason for consult: dyspnea Chief complaint: Shortness of breath and syncopal events History of present illness: I am seeing this patient in consultation today April 19, 2023 after he presented to emergency room yesterday afternoon complaining mostly of shortness of breath. Patient was reportedly noted to be positive for pulmonary embolism 4 weeks ago, and started on Eliquis outpatient. Patient is a 62-year-old male with other past medical history significant for colon cancer status post partial colectomy and currently on chemotherapy, splenectomy, hypertension, hypothyroidism, diabetes mellitus, obstructive sleep apnea with home CPAP, morbid obesity, among other things. His primary care provider is Dr. Leopoldo Price, and he follows with an oncologist from [facility] in [place]. Patient is currently lying in bed, on a 35% Ventimask in no acute distress. 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 His coworker mentioned that he should come to the emergency room he denies any chest pain, hemoptysis. He did have a nonproductive cough last week. He denies sick contacts. He was noted to have a low-grade fever on arrival. He tested negative for influenza, RSV, COVID. Chest x-ray on arrival has poor inspiratory effort, and generalized hazy appearance. No obvious focal infiltrates. He denies any heart palpitations or lower extremity swelling. He does admit to syncopal events that started several years ago. He attributes these events to choking while eating. He states that he has had an EGD in the past which did not find anything abnormal. Last sync opal event on April 06. CBC on arrival: WBC count of 12.1, hemoglobin 16.6, hematocrit 53.4, platelets 4 and 7. BMP on arrival: Sodium 134, potassium 5.7, chloride 97, serum bicarb 26, BUN 11, creatinine 0.68, glucose 178. Troponins less than 0.012. NT proBNP 58. EKG on arrival demonstrates sinus tachycardia with first-degree AV block, no obvious acute ischemic changes. Vitals are stable Review of Systems REVIEW OF SYSTEMS: CONSTITUTIONAL: Denies any recent significant weight loss or weight gain. EYES: Denies change in vision. EARS, NOSE, MOUTH, THROAT: Denies headaches, denies sore throat. CARDIOVASCULAR: See HPI RESPIRATORY: See HPI GASTROINTESTINAL: Denies change in appetite, abdominal pain, nausea and vomiting, or diarrhea GENITOURINARY: Denies hematuria, denies infections. MUSKULOSKELETAL: Denies pain, denies swelling. INTEGUMENTARY: Denies rash, denies eczema. NEUROLOGICAL: Denies recent memory loss, no recent seizure activity. PSYCHIATRIC: Denies anxiety, denies depression. HEMATOLOGIC/LYMPHATIC: Denies anemia, denies enlarged lymph node Past Medical History Past Medical History: Cancer, Diabetes Mellitus, Hyperlipidemia, Hypertension, Pneumonia, Pulmonary Embolus (PE), Sleep Apnea/CPAP/BIPAP, Thyroid Disorder, Vascular Disorder Additional Past Medical History / Comment(s): Diverticulitis, aortic aneurysm 4.5 cm, covid 02/17/21 received monoclonal antibodies., NIDDM type II, chronic low back pain/R shoulder pain and bilateral knee pain, hypothyroid, colon cancer with colostomy (02/2021) & chemo tx , Bring c-pap machine, states blood clot in arm 3 months ago.gone now per pt. History of Any Multi-Drug Resistant Organisms: None Reported Past Surgical History: Bowel Resection, Hernia Repair, Tonsillectomy Additional Past Surgical History / Comment(s): Colonoscopy, umbilical hernia, R hand cut injury with surgical repair,colostomy, 8 inches of colon removed (02/2021).,colostomy with reversal (11/09) spleenectomy, 28 lymph nodes removed ., port a cath. Past Anesthesia/Blood Transfusion Reactions: Previous Problems w/ Anesthesia Additional Past Anesthesia/Blood Transfusion Reaction / Comment(s): states 2016 hernia repair he was told difficult intubation because he is heavy and has a short neck, he woke up when the anesthesiologist was putting something in his throat that was painful and he broke the velcro wrist strap loose to pull his hand away., States no problems with surgeries after that. Past Psychological History: Anxiety Additional Psychological History / Comment(s): . Smoking Status: Never smoker Past Alcohol Use History: None Reported Past Drug Use History: None Reported - Past Family History Mother Family Medical History: Cancer Additional Family Medical History / Comment(s): Mother of cervical cancer with mets at the age of 66 yrs. Father Family Medical History: Myocardial Infarction ([place]) Additional Family Medical History / Comment(s): Father of a [place] at the age of 69 yrs. Medications and Allergies Home Medications Medication Instructions Recorded Confirmed Type Levothyroxine Sodium [Synthroid] 125 mcg PO DAILY 01/26/21 04/18/23 History Simvastatin [Zocor] 20 mg PO DAILY 01/26/21 04/18/23 History Apixaban [Eliquis] 5 mg PO BID 10/16/21 04/18/23 History metFORMIN HCL 500 mg PO DAILY 10/16/21 04/18/23 History Famotidine [Pepcid] 20 mg PO DAILY PRN 04/06/23 04/18/23 History Tamsulosin [Flomax] 0.4 mg PO DAILY 04/06/23 04/18/23 History Venlafaxine HCl [Effexor XR] 225 mg PO DAILY 04/06/23 04/18/23 History Lisinopril-Hctz 10-12.5 mg 1 tab PO DAILY 04/18/23 04/18/23 History [Zestoretic 10-12.5] Allergies Allergy/AdvReac Type Severity Reaction Status Date / Time No Known Allergies Allergy Verified 04/18/23 18:01 Physical Exam Vitals: Vital Signs Temp Pulse Pulse Resp BP BP Pulse Ox 04/19/23 00:00 99.9 F H 103 H 28 H 119/65 93 L 04/18/23 23:11 99.8 F H 104 H 28 H 115/44 93 L 04/18/23 20:54 100.4 F H 04/18/23 20:30 116 H 13 122/63 91 L 04/18/23 19:30 114 H 31 H 78/57 91 L 04/18/23 19:00 122 H 26 H 101/45 92 L 04/18/23 18:30 124 H 26 H 100/48 95 04/18/23 18:27 30 H 04/18/23 18:00 114 H 16 90/47 94 L 04/18/23 17:30 118 H 33 H 90/52 95 04/18/23 17:25 118 H 04/18/23 17:00 118 H 33 H 109/68 94 L 04/18/23 16:59 116 H 04/18/23 14:58 98 F 112 H 26 H 116/85 94 L Intake and Output 04/18/23 04/18/23 04/19/23 14:59 22:59 06:59 Other: Weight 174.633 kg 174.633 kg GENERAL EXAM: Alert, 62-year-old white male, fairly comfortable in no apparent distress. HEAD: Normocephalic and atraumatic EYES: Normal reaction of pupils, equal size. NOSE: Clear with pink turbinates. THROAT: No erythema or exudates. NECK: No masses, no JVD. CHEST: No chest wall deformity. LUNGS: Equal air entry with no crackles, wheeze, rhonchi or dullness. On a 35% Ventimask. No conversational dyspnea or accessory muscle use.. He is tachypneic. CVS: S1 and S2 normal with no audible murmur, regular rhythm. No extra heart sounds ABDOMEN: No hepatosplenomegaly, active bowel sounds, no guarding or rigidity. Remote appearing midline abdominal incision SPINE: No scoliosis or deformity SKIN: No rashes CENTRAL NERVOUS SYSTEM: No focal deficits, tone is normal in all 4 extremities. EXTREMITIES: There is no peripheral edema, clubbing, or cyanosis. Peripheral pulses are intact. Results - Laboratory Findings CBC and BMP: 04/18/23 15:18 04/18/23 15:18 PT/INR, D-dimer PT 12.5 sec (10.0-12.5) 04/18/23 15:18 INR 1.2 (<1.2) H 04/18/23 15:18 Abnormal lab findings: Abnormal Labs 04/18/23 04/18/23 04/18/23 15:18 15:18 15:18 WBC 12.1 H Hct 53.4 H MCV 102.0 H RDW 17.8 H Neutrophils # 10.2 H Lymphocytes # 0.8 L INR 1.2 H Sodium 134 L Potassium 5.7 H Chloride 97 L Glucose 178 H - Diagnostic Findings Chest x-ray: image reviewed Assessment and Plan Assessment: Acute hypoxemic respiratory failure, currently on a 35% Ventimask. chest x-ray on arrival has a poor inspiratory effort, there is a generalized hazy appearance. No obvious focal infiltrates or evidence of pneumonia. Negative for influenza, RSV, COVID. Acute febrile illness, currently under investigation Recent diagnosis of acute pulmonary embolism, started on Eliquis outpatient Recurrent syncopal events History of colon cancer status/post partial colectomy on 03/04/21. Pathology was positive for adenocarcinoma at that time, which appears to be metastatic, patient has reportedly been started on systemic chemotherapy. He is established with an Oncologist from [facility]. History of splenectomy Dysphagia Hypertension Hyperlipidemia Hypothyroidism Diabetes mellitus type 2 BPH Obstructive sleep apnea, with home CPAP Morbid obesity, the BMI is 60.3 kg/m Plan: Patient's medications, labs, chest x-ray reviewed. Continue supplemental oxygen Obtain chest CTA Resume Eliquis Patient encouraged to bring in home CPAP machine Negative for influenza, RSV, COVID. Patient is hemodynamically stable at this time. We will continue to follow, and further recommendations are forthcoming. I have personally seen and examined the patient, performed the documentation and the assessment and plan as written. Number of minutes spent on the visit:20 Time with Patient: Greater than 30
[2023-04-19] MEDS ORDERED: FAMOTIDINE 20 MG TAB PO PRN (06:35)
[2023-04-19] MEDS: LEVOTHYROXINE 125 MCG TAB PO SCH (06:43)
--- NOTE | 2023-04-19 07:20 | P.HPIM ---
History of Present Illness This is a pleasant 62 years old male who was recently diagnosed with colon cancer about 4 week ago also he was diagnosed with pulmonary embolism with the metastasis to the lung as per patient He follow-up with oncologist in [place] at [facility], last chemotherapy was about 2 weeks ago and his supposed to get chemotherapy today. PCP Dr. Gomez Presents because of worsening dyspnea over few days with exertional dyspnea, he had little cough but stopped when his doctor got his blood pressure pill in half. No chest pain No abdominal pain vomiting or diarrhea. No urinary complaints. No headache dizziness weakness or numbness. He denies smoking alcohol or illicit drugs. Patient also with history of obstructive sleep apnea and has been using CPAP machine at home. Patient states that he is currently on ELIQUIS at home and his been compliant taking it twice daily as his supposed toO Patient on admission also has spiked fever 100.4. He was on 9 oxygen liter per minute He has mildly tachypneic 22 and tachycardic around 100 Patient is not on oxygen at home. WBC slightly elevated at 12,000, potassium 5.7 but creatinine 0.68. Liver enzymes are unremarkable Influenza A and type B, RSV, SARS (coronavirus) are and detected CT of the chest is positive for bilateral basal pulmonary embolism Aortic abdominal aneurysm 4.5 cm, no lung consolidation exit for the lingula showing scarring versus consolidationa Review of Systems Review of systems CONSTITUTIONAL: No fever, no malaise, no fatigue. HEENT: No recent visual problems or hearing problems. Denied any sore throat. CARDIOVASCULAR: No orthopnea, PND, no palpitations, no syncope. PULMONARY: No chest wall tenderness GASTROINSTINAL: No diarrhea, no nausea, no vomiting, no abdominal pain. Normoactive bowel sounds. NEUROLOGICAL: No headaches, no weakness, no numbness. HEMATOLOGICAL: Denies any bleeding or petechiae. GENITOURINARY: Denies any burning micturition, frequency, or urgency. MUSCULOSKELETAL/RHEUMATOLOGICAL: Denies any joint pain, swelling, or any muscle pain. ENDOCRINE: Denies any polyuria or polydipsia. Past Medical History Past Medical History: Cancer, Diabetes Mellitus, Hyperlipidemia, Hypertension, Pneumonia, Pulmonary Embolus (PE), Sleep Apnea/CPAP/BIPAP, Thyroid Disorder, Vascular Disorder Additional Past Medical History / Comment(s): Diverticulitis, aortic aneurysm 4.5 cm, covid 02/17/21 received monoclonal antibodies., NIDDM type II, chronic low back pain/R shoulder pain and bilateral knee pain, hypothyroid, colon cancer with colostomy (02/2021) & chemo tx , Bring c-pap machine, states blood clot in arm 3 months ago.gone now per pt. History of Any Multi-Drug Resistant Organisms: None Reported Past Surgical History: Bowel Resection, Hernia Repair, Tonsillectomy Additional Past Surgical History / Comment(s): Colonoscopy, umbilical hernia, R hand cut injury with surgical repair,colostomy, 8 inches of colon removed (02/2021).,colostomy with reversal (11/09) spleenectomy, 28 lymph nodes removed ., port a cath. Past Anesthesia/Blood Transfusion Reactions: Previous Problems w/ Anesthesia Additional Past Anesthesia/Blood Transfusion Reaction / Comment(s): states 2016 hernia repair he was told difficult intubation because he is heavy and has a short neck, he woke up when the anesthesiologist was putting something in his throat that was painful and he broke the velcro wrist strap loose to pull his hand away., States no problems with surgeries after that. Past Psychological History: Anxiety Additional Psychological History / Comment(s): . Smoking Status: Never smoker Past Alcohol Use History: None Reported Past Drug Use History: None Reported - Past Family History Mother Family Medical History: Cancer Additional Family Medical History / Comment(s): Mother of cervical cancer with mets at the age of 66 yrs. Father Family Medical History: Myocardial Infarction ([place]) Additional Family Medical History / Comment(s): Father of a [place] at the age of 69 yrs. Medications and Allergies Home Medications Medication Instructions Recorded Confirmed Type Levothyroxine Sodium [Synthroid] 125 mcg PO DAILY 01/26/21 04/18/23 History Simvastatin [Zocor] 20 mg PO DAILY 01/26/21 04/18/23 History Apixaban [Eliquis] 5 mg PO BID 10/16/21 04/18/23 History metFORMIN HCL 500 mg PO DAILY 10/16/21 04/18/23 History Famotidine [Pepcid] 20 mg PO DAILY PRN 04/06/23 04/18/23 History Tamsulosin [Flomax] 0.4 mg PO DAILY 04/06/23 04/18/23 History Venlafaxine HCl [Effexor XR] 225 mg PO DAILY 04/06/23 04/18/23 History Lisinopril-Hctz 10-12.5 mg 1 tab PO DAILY 04/18/23 04/18/23 History [Zestoretic 10-12.5] Allergies Allergy/AdvReac Type Severity Reaction Status Date / Time No Known Allergies Allergy Verified 04/18/23 18:01 Physical Exam Vitals: Vital Signs Temp Pulse Pulse Resp BP BP Pulse Ox 04/19/23 04:00 99.2 F 100 22 125/75 99 04/19/23 00:00 99.9 F H 103 H 28 H 119/65 93 L 04/18/23 23:11 99.8 F H 104 H 28 H 115/44 93 L 04/18/23 20:54 100.4 F H 04/18/23 20:30 116 H 13 122/63 91 L 04/18/23 19:30 114 H 31 H 78/57 91 L 04/18/23 19:00 122 H 26 H 101/45 92 L 04/18/23 18:30 124 H 26 H 100/48 95 04/18/23 18:27 30 H 04/18/23 18:00 114 H 16 90/47 94 L 04/18/23 17:30 118 H 33 H 90/52 95 04/18/23 17:25 118 H 04/18/23 17:00 118 H 33 H 109/68 94 L 04/18/23 16:59 116 H 04/18/23 14:58 98 F 112 H 26 H 116/85 94 L Intake and Output 04/18/23 04/19/23 04/19/23 22:59 06:59 14:59 Other: Weight 174.633 kg -GENERAL: The patient is alert and oriented x3, not in any acute distress. Morbidly obese. HEENT: Pupils are round and equally reacting to light. EOMI. No scleral icterus. No conjunctival pallor. Normocephalic, atraumatic. No pharyngeal erythema. No thyromegaly. CARDIOVASCULAR: S1 and S2 present. No murmurs, rubs, or gallops. PULMONARY: Chest is clear to auscultation, no wheezing , no crackles. ABDOMEN: Soft, nontender, nondistended, normoactive bowel sounds. No palpable organomegaly. MUSCULOSKELETAL: No joint swelling or deformity. EXTREMITIES: No cyanosis, clubbing, or pedal edema. NEUROLOGICAL: Gross neurological examination did not reveal any focal deficits. SKIN: No rashes. no petechiae. Results CBC & Chem 7: 04/18/23 15:18 04/18/23 15:18 Labs: Abnormal Lab Results - Last 24 Hours (Table) 04/18/23 04/18/23 04/18/23 Range/Units 15:18 15:18 15:18 WBC 12.1 H (3.8-10.6) k/uL Hct 53.4 H (39.0-53.0) % MCV 102.0 H (80.0-100.0) fL RDW 17.8 H (11.5-15.5) % Neutrophils # 10.2 H (1.3-7.7) k/uL Lymphocytes # 0.8 L (1.0-4.8) k/uL INR 1.2 H (<1.2) Sodium 134 L (137-145) mmol/L Potassium 5.7 H (3.5-5.1) mmol/L Chloride 97 L (98-107) mmol/L Glucose 178 H (74-99) mg/dL Thrombosis Risk Factor Assmnt - Choose All That Apply Any of the Below Risk Factors Present?: Yes Each Factor Represents 1 point: Abnormal pulmonary function (COPD) Other Risk Factors: Yes Each Risk Factor Represents 2 Points: Age 61-74 years Each Risk Factor Represents 3 Points: History of DVT/PE Thrombosis Risk Factor Assessment Total Risk Factor Score: 6 Thrombosis Risk Factor Assessment Level: High Risk Assessment and Plan Assessment: Sepsis with fever and leukocytosis, mild Acute hypoxic respiratory failure Possible pneumonia of the lingula Colon cancer on chemotherapy Morbid obesity with BMI of 60.3. Obstructive sleep apnea on CPAP at home Plan: Continue with home dose of Eliquis Continue with normal saline 75 mL/h Continue with CPAP/BiPAP as needed Pulmonary team consult Follow-up blood culture Labs and medication were reviewed.. Continue same treatment. Continue with symptomatic treatment. Resume home medication. Monitor labs and vitals. DVT and GI prophylaxis. Further recommendations as per clinical course of the patient DVT prophylaxis: Subcutaneous heparin GI Prophylaxis: Pepcid PT/OT: Pending Prognosis is guarded
[2023-04-19 08:19] LABS: Appearance,Urine Clear (Clear); Bilirubin,Urine Negative (Negative); Blood,Urine Negative (Negative); Color,Urine Yellow; Glucose,Urine (UA) 1+ (Negative); Hyaline Casts,Urine 9 /lpf (0-2); Ketones,Urine Trace (Negative); Leukocyte Esterase,Urine Negative (Negative); Mucus,Urine Few /hpf; Nitrite,Urine Negative (Negative); Protein,Urine 2+ (Negative); RBC,Urine 1 /hpf (0-5); Squamous Epithelial Cell,Urine 1 /hpf (0-4); Urobilinogen,Urine <2.0 mg/dL (<2.0); WBC,Urine 2 /hpf (0-5)
[2023-04-19 08:27] LABS: Anisocytosis Slight; Basophils % (A) 0 %; Eosinophils # (A) 0.1 k/uL (0-0.7); Eosinophils % (A) 0 %; HCT 48.5 % (39.0-53.0); HGB 14.9 gm/dL (13.0-17.5); Hypochromasia Moderate; Lymphocytes # (A) 0.8 k/uL (1.0-4.8); Lymphocytes % (A) 6 %; MCH 31.5 pg (25.0-35.0); MCHC 30.7 g/dL (31.0-37.0); MCV 102.4 fL (80.0-100.0); Macrocytosis Moderate; Mean Platelet Volume 8.2; Monocytes # (A) 0.7 k/uL (0-1.0); Monocytes % (A) 5 %; Neutrophils # (A) 11.7 k/uL (1.3-7.7); Neutrophils % (A) 87 %; Platelet Count 397 k/uL (150-450); RBC 4.74 m/uL (4.30-5.90); WBC 13.5 k/uL (3.8-10.6)
[2023-04-19 08:41] LABS: Specific Gravity,Urine >1.050 (1.001-1.035)
[2023-04-19 08:43] LABS: African American GFR (CKD) >90 (>60 ml/min/1.73 sqM); Anion Gap 7 mmol/L; Blood Urea Nitrogen 17 mg/dL (9-20); Calcium 8.8 mg/dL (8.4-10.2); Carbon Dioxide 28 mmol/L (22-30); Chloride 99 mmol/L (98-107); Glucose 199 mg/dL (74-99); Non-African American GFR(CKD) >90 (>60 ml/min/1.73 sqM); Potassium 4.9 mmol/L (3.5-5.1); Sodium 134 mmol/L (137-145)
[2023-04-19] MEDS: APIXABAN 5 MG TAB PO SCH ×2 (09:42→20:15)
[2023-04-19] MEDS: SODIUM CHLORIDE 0.9% 1,000 ML IV SCH ×2 (09:42→22:45)
[2023-04-19] MEDS: TAMSULOSIN 0.4 MG CAP.ER.24H PO SCH (09:42)
[2023-04-19] MEDS: VENLAFAXINE HCL ER 75 MG CAP PO SCH (09:42)
[2023-04-19 11:13] VITALS: TEMP 97.8
[2023-04-19] MEDS: LISINOPRIL-HCTZ 10-12.5 MG 1 EACH TAB PO SCH (13:03)
[2023-04-19] MEDS: IPRATROPIUM-ALBUTEROL 3 ML NEB INHALATION SCH ×2 (16:41→21:15)
[2023-04-20] MEDS: LEVOTHYROXINE 125 MCG TAB PO SCH (05:53)
[2023-04-20] MEDS: ACETAMINOPHEN TAB 325 MG TAB PO PRN (05:53)
[2023-04-20] MEDS: IPRATROPIUM-ALBUTEROL 3 ML NEB INHALATION SCH ×2 (08:48→11:58)
[2023-04-20] MEDS ORDERED: AMOXIC-POT CLAV 875-125MG 1 EACH TAB PO SCH (09:00)
[2023-04-20 10:17] LABS: Anisocytosis Slight; Basophils % (A) 0 %; Eosinophils % (A) 0 %; HCT 42.6 % (39.0-53.0); HGB 13.3 gm/dL (13.0-17.5); Hypochromasia Marked; Lymphocytes # (A) 1.6 k/uL (1.0-4.8); Lymphocytes % (A) 17 %; MCH 32.2 pg (25.0-35.0); MCHC 31.3 g/dL (31.0-37.0); MCV 102.7 fL (80.0-100.0); Macrocytosis Moderate; Mean Platelet Volume 8.5; Monocytes # (A) 1.1 k/uL (0-1.0); Monocytes % (A) 12 %; Neutrophils # (A) 6.3 k/uL (1.3-7.7); Neutrophils % (A) 67 %; Platelet Count 339 k/uL (150-450); RBC 4.15 m/uL (4.30-5.90); RDW 17.8 % (11.5-15.5); WBC 9.3 k/uL (3.8-10.6)
[2023-04-20] MEDS: APIXABAN 5 MG TAB PO SCH (10:17)
[2023-04-20 10:18] LABS: African American GFR (CKD) >90 (>60 ml/min/1.73 sqM); Anion Gap 2 mmol/L; Blood Urea Nitrogen 11 mg/dL (9-20); Calcium 7.2 mg/dL (8.4-10.2); Carbon Dioxide 28 mmol/L (22-30); Chloride 108 mmol/L (98-107); Glucose 145 mg/dL (74-99); Non-African American GFR(CKD) >90 (>60 ml/min/1.73 sqM); Potassium 3.9 mmol/L (3.5-5.1); Sodium 138 mmol/L (137-145)
[2023-04-20] MEDS: TAMSULOSIN 0.4 MG CAP.ER.24H PO SCH (10:18)
[2023-04-20] MEDS: VENLAFAXINE HCL ER 75 MG CAP PO SCH (10:18)
[2023-04-20] MEDS: LISINOPRIL-HCTZ 10-12.5 MG 1 EACH TAB PO SCH ×2 (10:56→11:02)
[2023-04-20] MEDS: SODIUM CHLORIDE 0.9% 1,000 ML IV SCH (12:18)
[2023-04-20 12:53] VITALS: PULSE 91; RESP 20
[2023-04-20] MEDS ORDERED: FUROSEMIDE 40 MG TAB PO SCH (13:15)
--- NOTE | 2023-04-20 14:01 | US ---
EXAMINATION TYPE: US venous doppler duplex LE RT DATE OF EXAM: 04/20/2023 1:47 PM COMPARISON: CLINICAL INDICATION: Male, 62 years old with history of swelling; On blood thinners. Patient states swelling. SIDE PERFORMED: Right TECHNIQUE: The lower extremity deep venous system is examined utilizing real time linear array sonog ambar with graded compression, doppler sonography and color-flow sonography. VESSELS IMAGED: Common Femoral Vein Deep Femoral Vein Greater Saphenous Vein * Femoral Vein Popliteal Vein Small Saphenous Vein * Proximal Calf Veins (* superficial vessels) Suboptimal due to patient body habitus Right Leg: Negative for acute DVT IMPRESSION: Grayscale, color doppler, spectral doppler imaging performed of the deep veins of the lo wer extremities. There is normal flow, compressibility, vascular waveforms.
[2023-04-20 14:21] VITALS: BP 121/99
--- NOTE | 2023-04-20 14:33 | P.PN ---
Subjective Progress Note Date: 04/20/23 I am seeing this patient in consultation today April 19, 2023 after he presented to emergency room yesterday afternoon complaining mostly of shortness of breath. Patient was reportedly noted to be positive for pulmonary embolism 4 weeks ago, and started on Eliquis outpatient. Patient is a 62-year-old male with other past medical history significant for colon cancer status post partial colectomy and currently on chemotherapy, splenectomy, hypertension, hypothyroidism, diabetes mellitus, obstructive sleep apnea with home CPAP, morbid obesity, among other things. His primary care provider is Dr. Leopoldo Price, and he follows with an oncologist from [facility] in [place]. Patient is currently lying in bed, on a 35% Ventimask in no acute distress. 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 His coworker mentioned that he should come to the emergency room he denies any chest pain, hemoptysis. He did have a nonproductive cough last week. He denies sick contacts. He was noted to have a low-grade fever on arrival. He tested negative for influenza, RSV, COVID. Chest x-ray on arrival has poor inspiratory effort, and generalized hazy appearance. No obvious focal infiltrates. He denies any heart palpitations or lower extremity swelling. He does admit to syncopal events that started several years ago. He attributes these events to choking while eating. He states that he has had an EGD in the past which did not find anything abnormal. Last syncopal event on April 06. CBC on arrival: WBC count of 12.1, hemoglobin 16.6, hematocrit 53.4, platelets 4 and 7. BMP on arrival: Sodium 134, potassium 5.7, chloride 97, serum bicarb 26, BUN 11, creatinine 0.68, glucose 178. Troponins less than 0.012. NT proBNP 58. EKG on arrival demonstrates sinus tachycardia with first-degree AV block, no obvious acute ischemic changes. Vitals are stable. The patient is seen today April 20, 2023 in follow-up in the emergency department. He is currently resting comfortably on the stretcher. Awake and alert in no acute distress. Maintaining good O2 saturations in the 90s on 2 L/min per nasal cannula. His procalcitonin was 2.27. He remains on ceftriaxone. Anticoagulated with Eliquis. Doppler of the right lower extremity was negative for DVT. White count 9.3. Hemoglobin 13.3. Platelets 339. Sodium 138. Potassium 3.9. Bicarb 28. BUN 11. Creatinine 0.49. Glucose 145. Objective - Vital Signs Vital signs: Vital Signs Temp 97.8 F 04/19/23 08:00 Pulse 91 04/20/23 14:02 Resp 20 04/20/23 14:02 BP 121/99 04/20/23 14:02 Pulse Ox 95 04/20/23 14:02 FiO2 Intake & Output 04/19/23 04/20/23 04/20/23 18:59 06:59 18:59 Intake Total 1080 Output Total 600 Balance 480 Intake: Intake, IV Titration 600 Amount Sodium Chloride 0.9% 1, 600 000 ml @ 75 mls/hr IV . [id number] [facility] Rx#:[id number] Oral 480 Output: Urine 600 Other: # Voids 2 - Exam GENERAL EXAM: Alert, 62-year-old male, on 2 L nasal cannula, comfortable in no apparent distress. HEAD: Normocephalic and atraumatic EYES: Normal reaction of pupils, equal size. NOSE: Clear with pink turbinates. THROAT: No erythema or exudates. NECK: No masses, no JVD. CHEST: No chest wall deformity. LUNGS: Equal air entry with no crackles, wheeze, rhonchi or dullness.No conversational dyspnea or accessory muscle use. CVS: S1 and S2 normal with no audible murmur, regular rhythm. No extra heart sounds ABDOMEN: No hepatosplenomegaly, active bowel sounds, no guarding or rigidity. Remote appearing midline abdominal incision SPINE: No scoliosis or deformity SKIN: No rashes CENTRAL NERVOUS SYSTEM: No focal deficits, tone is normal in all 4 extremities. EXTREMITIES: There is no peripheral edema, clubbing, or cyanosis. Peripheral pulses are intact. - Labs CBC & Chem 7: 04/20/23 09:32 04/20/23 09:32 Labs: Abnormal Lab Results - Last 24 Hours (Table) 04/19/23 04/20/23 04/20/23 Range/Units 08:03 09:32 09:32 RBC 4.15 L (4.30-5.90) m/uL MCV 102.7 H (80.0-100.0) fL RDW 17.8 H (11.5-15.5) % Monocytes # 1.1 H (0-1.0) k/uL Chloride 108 H (98-107) mmol/L Creatinine 0.49 L (0.66-1.25) mg/dL Glucose 145 H (74-99) mg/dL Calcium 7.2 L (8.4-10.2) mg/dL Procalcitonin 2.27 H (0.02-0.09) ng/mL Assessment and Plan Assessment: Acute hypoxemic respiratory failure, currently on a 2 L nasal cannula. chest x- ray on arrival has a poor inspiratory effort, there is a generalized hazy appearance. No obvious focal infiltrates or evidence of pneumonia. Negative for influenza, RSV, COVID. Acute febrile illness, currently under investigation Recent diagnosis of acute pulmonary embolism, started on Eliquis outpatient Recurrent syncopal events History of colon cancer status/post partial colectomy on 03/04/21. Pathology was positive for adenocarcinoma at that time, which appears to be metastatic, patient has reportedly been started on systemic chemotherapy. He is established with an Oncologist from [facility]. History of splenectomy Dysphagia Hypertension Hyperlipidemia Hypothyroidism Diabetes mellitus type 2 BPH Obstructive sleep apnea, with home CPAP Morbid obesity, the BMI is 60.3 kg/m Plan: The patient was seen and evaluated Labs, doppler of the right lower extremity and medications reviewed Discontinue ceftriaxone Initiate Augmentin for 5 more days Continue Eliquis Cleared for discharge from the pulmonary standpoint I have personally seen and examined the patient, performed the documentation and the assessment and plan as written. Number of minutes spent on the visit: 10.
== END 2023-04-20 14:35 | disposition home health service (06) | DRG 871 ==
LOC: EC 14:51 → 3SCARD 18:41
PROVIDERS: ADMIT Hospitalist; ATTEND Hospitalist
DX: A41.89 Other specified sepsis (principal); I26.99 Other pulmonary embolism without acute cor pulmonale; J18.9 Pneumonia, unspecified organism; J96.01 Acute respiratory failure with hypoxia; Z68.44 Body mass index [BMI] 60.0-69.9, adult; C18.9 Malignant neoplasm of colon, unspecified; C78.00 Secondary malignant neoplasm of unspecified lung; E66.01 Morbid (severe) obesity due to excess calories; Z11.52 Encounter for screening for COVID-19; I50.9 Heart failure, unspecified; E11.9 Type 2 diabetes mellitus without complications; M25.562 Pain in left knee; I11.0 Hypertensive heart disease with heart failure; E03.9 Hypothyroidism, unspecified; M54.50 Low back pain, unspecified; G89.29 Other chronic pain; M25.561 Pain in right knee; E78.5 Hyperlipidemia, unspecified; F41.9 Anxiety disorder, unspecified; G47.33 Obstructive sleep apnea (adult) (pediatric); I44.0 Atrioventricular block, first degree; N40.0 Benign prostatic hyperplasia without lower urinary tract symptoms; R13.10 Dysphagia, unspecified; Z86.16 Personal history of COVID-19; Z28.21 Immunization not carried out because of patient refusal; Z79.01 Long term (current) use of anticoagulants; Z79.84 Long term (current) use of oral hypoglycemic drugs; Z79.890 Hormone replacement therapy; Z79.899 Other long term (current) drug therapy; Z82.49 Family history of ischemic heart disease and other diseases of the circulatory system; Z87.01 Personal history of pneumonia (recurrent); Z90.49 Acquired absence of other specified parts of digestive tract; Z90.81 Acquired absence of spleen
CPT/HCPCS: 36415; 71046; 71275; 80048; 80053; 81001; 83880; 84145; 84484; 85025; 85610; 85730; 87040; 87636; 93005; 94640; 94760; 96361; 96365; 96375; 99285